=== PATIENT | male | born 1990 | race African-American/Black ===

== ENCOUNTER 2016-05-16 01:40 | Inpatient (IN) | payer MEDICAID, OTHER, SELFPAY ==
[2016-05-16] VITALS (20 sets, daily range): BP systolic 101–170; BP diastolic 66–110
[~2016-05-16] VITALS: Ht 172.7 cm; Wt 61.2 kg
[~2016-05-16 01:40] MED LIST: DIFLUCAN100 MG ORAL; HUMALOG INSULIN; HUMALOG SUBQ; HUMALOG100 UNIT/4 SQ; HUMALOG100 UNIT/4 SUBQ; LANTUS; LANTUS SOL100 UNIT/1 SUBQ; LANTUS100 UNIT/1 SQ; LANTUS100 UNIT/2 SUBQ; LANTUS5 UNITS *; LANTUS5 UNITS SUBQ; LEVEMIR FL100 UNIT/1 SUBQ; METOCLOPRAM5 MG/1 M1 ORAL; NOVOLIN R100 UNIT/1 SUBQ; NOVOLOG100 UNIT/1 SQ; NOVOLOG100 UNITS1 SUBQ; ONDANSETRON ODT4 MG ORAL; PROAIR HFA8.5 GM IH; Tubing IV Cassette IV ONE
[2016-05-16 02:04] LABS: ABG BASE EXCESS -14.5
[2016-05-16 02:05] LABS: ABG ALLEN TEST POSITIVE
[2016-05-16 02:11] LABS: BASOPHILS % (AUTO) 1.6 % (0.0-2.0); LYMPHOCYTES % (AUTO) 16.8 % (20.0-45.0); MEAN CORPUSCULAR HEMOGLOBIN 26.2 PG (27.0-31.0); MEAN CORPUSCULAR HGB CONC 32.3 G/DL (32.0-36.0); MEAN CORPUSCULAR VOLUME 81 FL (80-99); MONOCYTES % (AUTO) 5.3 % (1.0-10.0); NEUTROPHILS % (AUTO) 76.3 % (45.0-75.0); PLATELET COUNT 243 K/UL (150-450); RED BLOOD COUNT 6.16 M/UL (4.70-6.10); RED CELL DISTRIBUTION WIDTH 12.9 % (11.6-14.8); WHITE BLOOD COUNT 6.8 K/UL (4.8-10.8)
[2016-05-16 02:26] LABS: APPEARANCE,URINE CLEAR; KETONES,URINE 4+ (NEGATIVE); LEUKOCYTE ESTERASE ,URINE NEGATIVE (NEGATIVE); NITRITE,URINE NEGATIVE (NEGATIVE); PH,URINE 5 (4.5-8.0); UROBILINOGEN,URINE NORMAL MG/DL (0.0-1.0)
[2016-05-16 02:28] LABS: ANION GAP 33 (5-15); CALCIUM 9.1 mg/dL (8.6-10.2); CARBON DIOXIDE 12 mEQ/L (20-30); CHLORIDE 92 mEQ/L (98-107); CREATININE 1.1 mg/dL (0.7-1.2); GLOMERULAR FILTRATION RATE > 60 mL/min (>60); HEMOLYSIS 7; POTASSIUM 4.4 mEQ/L (3.4-4.9); SODIUM 137 mEQ/L (135-145)
[2016-05-16 02:29] LABS: PROTEIN,URINE NEGATIVE (NEGATIVE)
[2016-05-16 02:32] LABS: RBC,URINE 0-2 /HPF (0 - 0); SQUAMOUS EPITHELIAL CELL,UR FEW /LPF (NONE/OCC); WBC,URINE 0 /HPF (0 - 0)
[2016-05-16] MEDS ORDERED: Morphine Sulfate 4mg/ml Inj IVP ONE ×2 (03:30→05:00)
--- NOTE | 2016-05-16 03:39 | Emergency Room Report ---
History of Present Illness General Chief Complaint: Nausea, Vomiting, and Diarrhea Source: Patient Present Illness HPI This is a 25-year-old male with a history of insulin-dependent diabetes. He is well-known to me. He's been here several times in the past for DKA. Hasn't had admission for several months. He presents with chief complaint of abdominal pain with vomiting. Unable to keep anything down since that this. Said that he is compliant with his insulin. He does not check his blood sugar. Denies any other complaint. Pain is 8/10. No diarrhea. Allergies: Coded Allergies: No Known Allergies (Verified , 09/16/08) Patient History Past Medical History: see triage record, old chart reviewed, DM Past Surgical History: none Pertinent Family History: none Social History: Denies: smoking Immunizations: other Reviewed Nursing Documentation: PMH: Agreed, PSxH: Agreed Nursing Documentation-PMH Hx Cardiac Problems: No Hx Hypertension: No Hx Pacemaker: No Hx Asthma: No Hx COPD: No Hx Diabetes: Yes Hx Cancer: No Hx Gastrointestinal Problems: Yes Hx Dialysis: No Hx Neurological Problems: No Hx Cerebrovascular Accident: No Hx Seizures: No Review of Systems Eye: Denies: blurred vision, eye pain ENT: Denies: ear pain, nose congestion, throat swelling Respiratory: Denies: cough, shortness of breath Cardiovascular: Denies: chest pain, palpitations Gastrointestinal: Reports: abdominal pain, nausea, vomiting, Denies: diarrhea Musculoskeletal: Denies: back pain, joint pain Skin: Denies: rash Neurological: Denies: headache, numbness Endocrine: Denies: increased thirst, increased urine Hematologic/Lymphatic: Denies: easy bruising All Other Systems: negative except mentioned in HPI Physical Exam Vital Signs Date Time Temp Pulse Resp B/P Pulse Ox O2 Delivery O2 Flow Rate FiO2 05/16/16 01:39 98.4 80 18 116/72 97 Room Air vitals unremarkable Sp02 EP Interpretation: reviewed, normal General Appearance: well appearing, alert, mild distress Head: normocephalic, atraumatic Eyes: bilateral eye EOMI, bilateral eye PERRL ENT: hearing grossly normal, normal pharynx Neck: full range of motion, supple, no meningismus Respiratory: chest non-tender, lungs clear, normal breath sounds Cardiovascular #1: regular rate, rhythm, no murmur, tachycardia Gastrointestinal: normal bowel sounds, non tender, no mass, no organomegaly, no bruit, non-distended Musculoskeletal: back normal, gait/station normal, normal range of motion Neurologic: alert, oriented x3 Psychiatric: mood/affect normal Skin: warm/dry Procedures Critical Care Time Critical Care Time Critical care is mandated in this patient who presented with mild DKA. Patient require my urgent intervention to attenuate the risks of metabolic collapse which may lead to cardiovascular collapse and . Critical care time is 35 minutes excluding any reportable procedure. Critical care time included evaluation, multiple reevaluation, looking at old charts, interpreting laboratory and diagnostic data, discussing case with patient and family and consultants, and charting. Medical Decision Making Diagnostic Impression: Primary Impression: Ketoacidosis in type I diabetes mellitus Additional Impressions: Abdominal pain Vomiting Dehydration ER Course Patient presents with mild DKA. Slowly closing. We'll continue with insulin drip and dextrose solution. Will admit to the ICU. I contacted Dr. Meehan for admission. Lab Results Impression labs with DKA Rhythm Strip Diag. Results EP Interpretation: yes Rate: 110 Rhythm: NSR, no PVC's, no ectopy Last Vital Signs Date Time Temp Pulse Resp B/P Pulse Ox O2 Delivery O2 Flow Rate FiO2 05/16/16 03:35 118 17 149/89 100 Room Air 05/16/16 01:39 98.4 Status: improved Disposition: ADMITTED INPATIENT Condition: Critical Referrals: [facility],REFERRING (PCP) PRETTY GREWAL M.D. May 16, 2016 03:39
[2016-05-16 05:54] LABS: ANION GAP 25 (5-15); CALCIUM 7.9 mg/dL (8.6-10.2); CARBON DIOXIDE 14 mEQ/L (20-30); CHLORIDE 102 mEQ/L (98-107); CREATININE 0.9 mg/dL (0.7-1.2); GLOMERULAR FILTRATION RATE > 60 mL/min (>60); HEMOLYSIS 120; POTASSIUM 4.9 mEQ/L (3.4-4.9); SODIUM 141 mEQ/L (135-145)
[2016-05-16] MEDS: D5 1/2NS w/KCl 40meq 1000ml 1,000 ML IV SCH ×4 (07:21→21:15)
[2016-05-16] MEDS ORDERED: Nitroglycerin Subl 0.4mg tab (Bottle Of 25) SL PRN (08:11)
[2016-05-16] MEDS ORDERED: DuoNeb 0.5-3(2.5)mg/3ml neb HHN PRN (08:11)
[2016-05-16] MEDS ORDERED: Miralax 17gm pkt ORAL PRN (08:15)
[2016-05-16] MEDS: Morphine Sulfate 4mg/ml Inj IVP PRN ×3 (10:27→19:06)
[2016-05-16] MEDS: Pantoprazole Inj IVP SCH (10:28)
[2016-05-16] MEDS: Heparin 5000 units/ml inj SUBQ SCH ×2 (10:29→20:11)
[2016-05-16] MEDS: Insulin Rate Change 1 Each MISC PRN ×4 (14:13→21:36)
[2016-05-17] VITALS (24 sets, daily range): BP systolic 110–161; BP diastolic 58–100
[2016-05-17] MEDS: Insulin Rate Change 1 Each MISC PRN ×15 (00:02→21:05)
[2016-05-17] MEDS: Morphine Sulfate 4mg/ml Inj IVP PRN ×5 (00:07→18:31)
[2016-05-17] MEDS: D5 1/2NS w/KCl 40meq 1000ml 1,000 ML IV SCH ×2 (01:21→07:15)
[2016-05-17] MEDS: Pantoprazole Inj IVP SCH (08:35)
[2016-05-17] MEDS: Heparin 5000 units/ml inj SUBQ SCH ×2 (08:42→21:06)
[2016-05-17 09:44] LABS: ANION GAP 25 (5-15); CALCIUM 8.6 mg/dL (8.6-10.2); CARBON DIOXIDE 14 mEQ/L (20-30); CHLORIDE 102 mEQ/L (98-107); CREATININE 0.9 mg/dL (0.7-1.2); GLOMERULAR FILTRATION RATE > 60 mL/min (>60); HEMOLYSIS 7; POTASSIUM 4.1 mEQ/L (3.4-4.9); SODIUM 141 mEQ/L (135-145)
[2016-05-17 09:45] LABS: INR 1.1 (0.9-1.1)
[2016-05-17 09:54] LABS: BILIRUBIN,DIRECT 0.2 mg/dL (0.1-0.3); PHOSPHORUS 2.7 mg/dL (2.5-4.8); TOTAL PROTEIN 6.2 g/dL (6.6-8.7)
--- NOTE | 2016-05-17 10:31 | History and Physical ---
History of Present Illness General Date patient seen: May 16, 2016 Reason for Hospitalization: Nausea, Vomiting, and Diarrhea Present Illness HPI 25-year-old male with a history of insulin-dependent diabetes, recurrent DKA, non-compliance presented with chief complaint of abdominal pain and vomiting. He was diagnosed to have DKA and admitted to ICU Allergies: Coded Allergies: No Known Allergies (Verified , 09/16/08) Medication History Scheduled Insulin Aspart (Novolog Flexpen), 10 UNITS SUBQ TIAC Insulin Detemir (Levemir Flexpen), 25 UNITS SUBQ BEDTIME Insulin Glargine (Lantus), 20 UNITS SUBQ BEDTIME Insulin Lispro (Humalog), 15 UNITS SUBQ BID Insulin Regular, Human* (Novolin R*), 0 SUBQ .SLIDING SCALE, (Reported) Ondansetron Odt* (Zofran Odt*), 4 MG ORAL EVERY 8 HOURS Patient History Healthcare decision maker Resuscitation status Full Code Advanced Directive on File Past Medical/Surgical History Past Medical/Surgical History: (1) DM (diabetes mellitus) (2) medication non-compliance Review of Systems All Other Systems: negative except mentioned in HPI Physical Exam General Appearance: WD/WN Lines, tubes and drains: peripheral HEENT: normocephalic, atraumatic Neck: non-tender Respiratory/Chest: chest wall non-tender Breasts: no masses Cardiovascular/Chest: normal peripheral pulses Abdomen: normal bowel sounds Genitourinary/Rectal: normal genital exam Last 24 Hour Vital Signs Date Time Temp Pulse Resp B/P Pulse Ox O2 Delivery O2 Flow Rate FiO2 05/17/16 10:00 115 14 145/84 100 Room Air 05/17/16 09:05 98.8 05/17/16 09:00 122 13 156/94 100 Room Air 05/17/16 08:00 98.8 116 15 117/64 100 Room Air 05/17/16 08:00 119 05/17/16 07:00 106 11 122/94 100 Room Air 05/17/16 07:00 116 14 122/94 100 Room Air 05/17/16 06:00 110 13 120/69 100 Room Air 05/17/16 05:00 116 12 154/96 100 Room Air 05/17/16 04:00 127 13 161/94 100 Room Air 05/17/16 03:29 134 05/17/16 03:00 125 13 159/77 100 Room Air 05/17/16 02:00 98.1 102 10 124/74 100 Room Air 05/17/16 01:00 110 11 132/83 100 Room Air 05/17/16 00:00 117 12 133/83 100 Room Air 05/16/16 23:29 134 05/16/16 23:00 114 12 101/86 100 Room Air 05/16/16 22:00 116 12 157/87 100 Room Air 05/16/16 21:00 118 12 157/87 100 Room Air 05/16/16 20:00 112 05/16/16 20:00 98.0 112 12 144/82 100 Room Air 05/16/16 19:00 123 12 152/84 100 Room Air 05/16/16 18:00 122 16 170/110 100 Room Air 05/16/16 17:00 114 13 116/66 100 Room Air 05/16/16 16:00 98.2 124 13 153/92 100 Room Air 05/16/16 16:00 123 05/16/16 15:00 123 13 127/70 100 Room Air 05/16/16 14:00 134 22 137/90 100 Room Air 05/16/16 13:15 98.4 125 15 170/84 100 Room Air 05/16/16 13:04 88 20 162/98 Room Air 05/16/16 12:30 98.4 113 14 155/96 100 Room Air 05/16/16 11:30 98.0 121 18 150/96 100 Room Air 05/16/16 10:30 98.6 120 12 150/98 100 Room Air Intake and Output 05/16/16 05/17/16 19:00 07:00 Intake Total 770.16 ml 1833.46 ml Output Total 1750 ml 1030 ml Balance -979.84 ml 803.46 ml Intake IV Total 770.16 ml 1833.46 ml Output Urine Total 1550 ml 1000 ml Emesis 200 ml 30 ml Laboratory Tests Test 05/17/16 08:35 Prothrombin Time 11.0 SEC (9.30-11.50) Prothromb Time International Ratio 1.1 (0.9-1.1) Activated Partial Thromboplast Time 23 SEC (23-33) Sodium Level 141 mEQ/L (135-145) Potassium Level 4.1 mEQ/L (3.4-4.9) Chloride Level 102 mEQ/L (98-107) Carbon Dioxide Level 14 mEQ/L (20-30) L Anion Gap 25 (5-15) H Blood Urea Nitrogen 4 mg/dL (7-23) L Creatinine 0.9 mg/dL (0.7-1.2) Estimat Glomerular Filtration Rate > 60 mL/min (>60) Glucose Level 106 mg/dL (74-106) # Calcium Level 8.6 mg/dL (8.6-10.2) Phosphorus Level 2.7 mg/dL (2.5-4.8) Total Bilirubin 1.4 mg/dL (0.0-1.2) H Direct Bilirubin 0.2 mg/dL (0.1-0.3) Aspartate Amino Transf (AST/SGOT) 36 U/L (5-40) Alanine Aminotransferase (ALT/SGPT) 38 U/L (3-41) Alkaline Phosphatase 111 U/L (40-129) Total Protein 6.2 g/dL (6.6-8.7) L Albumin 4.0 g/dL (3.5-5.2) Height (Feet): 5 Height (Inches): 8.00 Weight (Pounds): 135 Medications Current Medications Medications (Trade) Dose Ordered Sig/Carlos Route PRN Reason Start Time Stop Time Status Last Admin Dose Admin Acetaminophen (Tylenol) 650 mg Q4H PRN ORAL Fever 05/16/16 08:11 06/15/16 08:10 05/17/16 03:23 Albuterol/ Ipratropium (DuoNeb 0.5-3(2.5)mg/3ml) 3 ml Q4H PRN HHN Shortness of Breath 05/16/16 08:11 05/21/16 08:10 Dextrose (Dextrose 50%) STAT PRN IV Hypoglycemia 05/16/16 08:15 06/15/16 08:14 Dextrose/ Electrolytes 1,000 ml @ 200 mls/hr Q5H IV 05/16/16 06:15 06/15/16 06:14 05/16/16 07:21 Heparin Sodium (Porcine) (Heparin 5000 units/ml) 5,000 units EVERY 12 HOURS SUBQ 05/16/16 10:00 06/15/16 09:59 05/17/16 08:42 Insulin Human Regular (NovoLIN R) 5 units PRN PRN IV BS 200-299 05/16/16 08:15 06/15/16 08:14 Insulin Human Regular (NovoLIN R) 10 units PRN PRN IV BS=>300 05/16/16 08:15 06/15/16 08:14 Insulin Human Regular/Sodium Chloride (NovoLIN R/ Sodium Chloride) 101 ml @ 0 mls/hr Q24H IV 05/16/16 10:03 06/15/16 08:14 05/17/16 08:43 Lorazepam (Ativan 2mg/ml 1ml) 2 mg Q2H PRN IV agitation 05/16/16 08:15 05/23/16 08:14 Miscellaneous Medication (Insulin Rate Change) 1 ea PRN PRN MISC To Patient Comfort 05/16/16 08:15 06/15/16 08:14 05/17/16 10:08 Morphine Sulfate (Morphine Sulfate) 4 mg Q4H PRN IVP Severe Pain (Pain Scale 7-10) 05/16/16 08:11 05/23/16 08:10 05/17/16 08:35 Nitroglycerin (Ntg) 0.4 mg Q5M PRN SL Prn Chest Pain 05/16/16 08:11 06/15/16 08:10 Ondansetron HCl (Zofran) 4 mg Q6H PRN IVP Nausea & Vomiting 05/16/16 08:15 06/15/16 08:14 05/17/16 04:12 Pantoprazole 40 mg 40 mg DAILY IVP 05/16/16 10:00 06/15/16 09:59 05/17/16 08:35 Polyethylene Glycol (Miralax) 17 gm DAILYPRN PRN ORAL Constipation 05/16/16 08:15 06/15/16 08:14 Sodium Chloride (Sodium Chloride 1000ml bag) 1,000 ml @ 150 mls/hr Q6H40M IV 05/16/16 10:00 06/15/16 09:59 05/17/16 04:19 Assessment/Plan Problem List: (1) Ketoacidosis in type I diabetes mellitus (2) Vomiting Assessment/Plan IV fluids insulin drip accucheck hourly dvt prophylaxis. VINEET BERMEO May 17, 2016 10:31
--- NOTE | 2016-05-17 10:40 | Pulmonolgy Critical Care Note ---
Critical Care - Asmt/Plan Problems: (1) Ketoacidosis in type I diabetes mellitus (2) Sinus tachycardia (3) medication non-compliance Respiratory: monitor respiratory rate Cardiac: continue to monitor HR/BP Renal: F/U I&O, other - change IV fluid to D5 1/2 Ns Infectious Disease: check cultures, continue antibiotics Gastrointestinal: continue feedings/current rate Endocrine: monitor blood sugar, continue sliding scale insulin Hematologic: monitor H/H, transfuse if hgb<8.5 Neurologic: PRN Ativan, PRN Morphine, keep patient comfortable Affect: PRN ativan Notes Reviewed: physical meteorologist, cardio Discussed with: nurses, consultants, disease case manager rncytology manager - Objective Last 24 Hour Vital Signs Date Time Temp Pulse Resp B/P Pulse Ox O2 Delivery O2 Flow Rate FiO2 05/17/16 10:00 115 14 145/84 100 Room Air 05/17/16 09:05 98.8 05/17/16 09:00 122 13 156/94 100 Room Air 05/17/16 08:00 98.8 116 15 117/64 100 Room Air 05/17/16 08:00 119 05/17/16 07:00 106 11 122/94 100 Room Air 05/17/16 07:00 116 14 122/94 100 Room Air 05/17/16 06:00 110 13 120/69 100 Room Air 05/17/16 05:00 116 12 154/96 100 Room Air 05/17/16 04:00 127 13 161/94 100 Room Air 05/17/16 03:29 134 05/17/16 03:00 125 13 159/77 100 Room Air 05/17/16 02:00 98.1 102 10 124/74 100 Room Air 05/17/16 01:00 110 11 132/83 100 Room Air 05/17/16 00:00 117 12 133/83 100 Room Air 05/16/16 23:29 134 05/16/16 23:00 114 12 101/86 100 Room Air 05/16/16 22:00 116 12 157/87 100 Room Air 05/16/16 21:00 118 12 157/87 100 Room Air 05/16/16 20:00 112 05/16/16 20:00 98.0 112 12 144/82 100 Room Air 05/16/16 19:00 123 12 152/84 100 Room Air 05/16/16 18:00 122 16 170/110 100 Room Air 05/16/16 17:00 114 13 116/66 100 Room Air 05/16/16 16:00 98.2 124 13 153/92 100 Room Air 05/16/16 16:00 123 05/16/16 15:00 123 13 127/70 100 Room Air 05/16/16 14:00 134 22 137/90 100 Room Air 05/16/16 13:15 98.4 125 15 170/84 100 Room Air 05/16/16 13:04 88 20 162/98 Room Air 05/16/16 12:30 98.4 113 14 155/96 100 Room Air 05/16/16 11:30 98.0 121 18 150/96 100 Room Air Status: awake Condition: critical HEENT: atraumatic, normocephalic Lungs: clear Heart: HR/BP stable Abdomen: soft, active bowel sounds Extremities: no C/C/E, edema Decubiti: stage Accucheck: 135 Critical Care - Subjective ROS Limited/Unobtainable: Yes ICU Day: 2 Condition: critical EKG Rhythm: Sinus Rhythm Fluids: ns 150 cc.hour Drips: insulin drip I&O: Intake and Output 05/16/16 05/17/16 19:00 07:00 Intake Total 770.16 ml 1833.46 ml Output Total 1750 ml 1030 ml Balance -979.84 ml 803.46 ml Intake IV Total 770.16 ml 1833.46 ml Output Urine Total 1550 ml 1000 ml Emesis 200 ml 30 ml CXR: [place] Labs: Laboratory Tests Test 05/17/16 08:35 Prothrombin Time 11.0 SEC (9.30-11.50) Prothromb Time International Ratio 1.1 (0.9-1.1) Activated Partial Thromboplast Time 23 SEC (23-33) Sodium Level 141 mEQ/L (135-145) Potassium Level 4.1 mEQ/L (3.4-4.9) Chloride Level 102 mEQ/L (98-107) Carbon Dioxide Level 14 mEQ/L (20-30) L Anion Gap 25 (5-15) H Blood Urea Nitrogen 4 mg/dL (7-23) L Creatinine 0.9 mg/dL (0.7-1.2) Estimat Glomerular Filtration Rate > 60 mL/min (>60) Glucose Level 106 mg/dL (74-106) # Calcium Level 8.6 mg/dL (8.6-10.2) Phosphorus Level 2.7 mg/dL (2.5-4.8) Total Bilirubin 1.4 mg/dL (0.0-1.2) H Direct Bilirubin 0.2 mg/dL (0.1-0.3) Aspartate Amino Transf (AST/SGOT) 36 U/L (5-40) Alanine Aminotransferase (ALT/SGPT) 38 U/L (3-41) Alkaline Phosphatase 111 U/L (40-129) Total Protein 6.2 g/dL (6.6-8.7) L Albumin 4.0 g/dL (3.5-5.2) VINEET BERMEO May 17, 2016 10:40
[2016-05-17] MEDS: D5 1/2NS 1,000 ML IV SCH ×2 (11:12→18:30)
--- NOTE | 2016-05-17 23:38 | Consultation ---
DATE OF CONSULTATION: 05/17/2016 ENDOCRINOLOGY CONSULTATION CONSULTING PHYSICIAN: Gunnar Parks M.D. REFERRING PHYSICIAN: Ashleigh Meehan M.D. REASON FOR CONSULTATION: Diabetic ketoacidosis. HISTORY OF PRESENT ILLNESS: This is a 25-year-old male with a history of type 1 diabetes, recurrent UTI, and noncompliance with medication, presented with abdominal pain and vomiting, diagnosed of DKA, and admitted to the ICU, to be treated with insulin drip. MEDICATIONS: Reviewed. PAST MEDICAL HISTORY: 1. Type 1 diabetes. 2. Noncompliance. 3. Diabetic ketoacidosis. FAMILY HISTORY: Noncontributory. SOCIAL HISTORY: Denies any smoking, alcohol, or drug use. REVIEW OF SYSTEMS: As per history of present illness. LABORATORY DATA: WBC 6.8, hemoglobin 16, hematocrit 50, and platelets of 243,000. Sodium 141, potassium 4.1, chloride 103, bicarbonate 14, anion gap 25, BUN 4, and creatinine 0.9. DIAGNOSES: 1. Diabetic ketoacidosis due to noncompliance. 2. Type 1 diabetes. PLAN: 1. Continue IV fluids. 2. Continue IV insulin. 3. Continue electrolytes. 4. Insulin therapy will be initiated once the patient's anion gap is closed. Gunnar Parks M.D. DR: CARMENZA/TANIYA JOB#: [id number] CC:
[2016-05-18] VITALS (24 sets, daily range): BP systolic 115–160; BP diastolic 56–105
[2016-05-18] MEDS: D5 1/2NS 1,000 ML IV SCH ×3 (03:05→17:26)
[2016-05-18] MEDS: Insulin Rate Change 1 Each MISC PRN ×14 (03:06→23:54)
--- NOTE | 2016-05-18 07:03 | General Progress Note ---
Assessment/Plan Problem List: (1) Ketoacidosis in type I diabetes mellitus (2) Abdominal pain (3) Dehydration Assessment/Plan am labs are pending AG still open according to latest chemistry continue IV insulin until AG closes Subjective Allergies: Coded Allergies: No Known Allergies (Verified , 09/16/08) All Systems: reviewed and negative except above Subjective still in icu complaining of abdominal pain Objective Last 24 Hour Vital Signs Date Time Temp Pulse Resp B/P Pulse Ox O2 Delivery O2 Flow Rate FiO2 05/18/16 06:00 120 10 155/100 100 Room Air 05/18/16 05:00 92 13 147/81 100 Room Air 05/18/16 04:00 98.4 111 12 149/83 100 Room Air 05/18/16 04:00 111 05/18/16 03:00 114 13 153/96 100 Room Air 05/18/16 02:00 99 8 153/89 100 Room Air 05/18/16 01:00 111 12 160/97 100 Room Air 05/18/16 00:04 111 05/18/16 00:00 98.3 117 8 151/93 100 Room Air 05/17/16 23:00 110 10 141/97 100 Room Air 05/17/16 22:00 120 21 150/94 100 Room Air 05/17/16 21:00 111 10 132/78 100 Room Air 05/17/16 20:00 98.6 118 13 160/100 100 Room Air 05/17/16 20:00 115 05/17/16 19:10 98.5 05/17/16 19:00 119 12 133/81 100 Room Air 05/17/16 18:00 127 16 156/98 100 Room Air 05/17/16 17:00 122 15 152/93 100 Room Air 05/17/16 16:00 126 05/17/16 16:00 98.5 120 11 151/99 100 Room Air 05/17/16 15:00 121 15 131/77 100 Room Air 05/17/16 14:00 149 17 150/77 100 Room Air 05/17/16 13:00 100 24 121/76 100 Room Air 05/17/16 12:00 98.7 104 11 138/76 100 Room Air 05/17/16 12:00 122 05/17/16 11:00 114 15 110/58 100 Room Air 05/17/16 10:00 115 14 145/84 100 Room Air 05/17/16 09:00 122 13 156/94 100 Room Air 05/17/16 08:00 98.8 116 15 117/64 100 Room Air 05/17/16 08:00 119 Intake and Output 05/17/16 05/18/16 19:00 07:00 Intake Total 1184.60 ml 1018.5 ml Output Total 1000 ml 900 ml Balance 184.60 ml 118.5 ml Intake IV Total 1184.60 ml 1018.5 ml Output Urine Total 1000 ml 900 ml Laboratory Tests 05/17/16 08:35: Prothrombin Time 11.0, Prothromb Time International Ratio 1.1, Activated Partial Thromboplast Time 23, Sodium Level 141, Potassium Level 4.1, Chloride Level 102, Carbon Dioxide Level 14L, Anion Gap 25H, Blood Urea Nitrogen 4L, Creatinine 0.9, Estimat Glomerular Filtration Rate > 60, Glucose Level 106#, Calcium Level 8.6, Phosphorus Level 2.7, Total Bilirubin 1.4H, Direct Bilirubin 0.2, Aspartate Amino Transf (AST/SGOT) 36, Alanine Aminotransferase (ALT/SGPT) 38, Alkaline Phosphatase 111, Total Protein 6.2L, Albumin 4.0 Height (Feet): 5 Height (Inches): 8.00 Weight (Pounds): 135 General Appearance: no apparent distress EENT: PERRL/EOMI Neck: normal alignment Cardiovascular: normal peripheral pulses Respiratory/Chest: lungs clear Abdomen: normal bowel sounds Objective Current Medications Medications (Trade) Dose Ordered Sig/Carlos Route PRN Reason Start Time Stop Time Status Last Admin Dose Admin Acetaminophen (Tylenol) 650 mg Q4H PRN ORAL Fever 05/16/16 08:11 06/15/16 08:10 05/17/16 03:23 Albuterol/ Ipratropium (DuoNeb 0.5-3(2.5)mg/3ml) 3 ml Q4H PRN HHN Shortness of Breath 05/16/16 08:11 05/21/16 08:10 Dextrose (Dextrose 50%) PRN PRN IV HYPOGLYCEMIA 05/17/16 11:30 06/16/16 11:29 Dextrose/Sodium Chloride (D5 0.45% NS) 1,000 ml @ 125 mls/hr Q8H IV 05/17/16 11:00 06/16/16 10:59 05/18/16 03:05 Heparin Sodium (Porcine) (Heparin 5000 units/ml) 5,000 units EVERY 12 HOURS SUBQ 05/16/16 10:00 06/15/16 09:59 05/17/16 21:06 Insulin Human Regular (NovoLIN R) 5 units PRN PRN IV BS 200-299 05/17/16 11:30 06/16/16 11:29 05/18/16 05:24 Insulin Human Regular (NovoLIN R) 10 units PRN PRN IV BS=>300 05/17/16 11:30 06/16/16 11:29 Insulin Human Regular/Sodium Chloride (NovoLIN R/ Sodium Chloride) 101 ml @ 0 mls/hr Q24H IV 05/17/16 14:00 06/16/16 13:59 05/17/16 14:08 Lorazepam (Ativan 2mg/ml 1ml) 2 mg Q2H PRN IV agitation 05/16/16 08:15 05/23/16 08:14 Miscellaneous Medication 1 ea 1 ea PRN PRN MISC Taper 05/17/16 11:30 06/16/16 11:29 05/18/16 06:08 Morphine Sulfate (Morphine Sulfate) 4 mg Q4H PRN IVP Severe Pain (Pain Scale 7-10) 05/16/16 08:11 05/23/16 08:10 05/17/16 18:31 Nitroglycerin (Ntg) 0.4 mg Q5M PRN SL Prn Chest Pain 05/16/16 08:11 06/15/16 08:10 Ondansetron HCl (Zofran) 4 mg Q6H PRN IVP Nausea & Vomiting 05/16/16 08:15 06/15/16 08:14 05/18/16 01:04 Pantoprazole 40 mg 40 mg DAILY IVP 05/16/16 10:00 06/15/16 09:59 05/17/16 08:35 Polyethylene Glycol (Miralax) 17 gm DAILYPRN PRN ORAL Constipation 05/16/16 08:15 06/15/16 08:14 Item Value Date Time Bedside Blood Glucose 141 mg/dl H 05/18/16 0608 IRENE MCHUGH 21, 2017 07:03
[2016-05-18 07:36] LABS: BASOPHILS % (AUTO) 1.1 % (0.0-2.0); LYMPHOCYTES % (AUTO) 14.8 % (20.0-45.0); MEAN CORPUSCULAR HEMOGLOBIN 25.9 PG (27.0-31.0); MEAN CORPUSCULAR HGB CONC 32.2 G/DL (32.0-36.0); MEAN CORPUSCULAR VOLUME 80 FL (80-99); MEAN PLATELET VOLUME 8.3 FL (6.5-10.1); MONOCYTES % (AUTO) 8.8 % (1.0-10.0); NEUTROPHILS % (AUTO) 75.3 % (45.0-75.0); PLATELET COUNT 223 K/UL (150-450); RED BLOOD COUNT 6.11 M/UL (4.70-6.10); RED CELL DISTRIBUTION WIDTH 12.7 % (11.6-14.8); WHITE BLOOD COUNT 7.7 K/UL (4.8-10.8)
[2016-05-18 07:47] LABS: ALANINE AMINOTRANSFERASE 34 U/L (3-41); ALBUMIN/GLOBULIN RATIO 1.3 (1.0-2.7); ANION GAP 18 (5-15); ASPARTATE AMINO TRANSFERASE 23 U/L (5-40); CALCIUM 8.8 mg/dL (8.6-10.2); CARBON DIOXIDE 21 mEQ/L (20-30); CHLORIDE 97 mEQ/L (98-107); CREATININE 0.9 mg/dL (0.7-1.2); GLOMERULAR FILTRATION RATE > 60 mL/min (>60); HEMOLYSIS 5; MAGNESIUM 1.5 mg/dL (1.7-2.5); PHOSPHORUS 1.6 mg/dL (2.5-4.8); POTASSIUM 3.2 mEQ/L (3.4-4.9); SODIUM 136 mEQ/L (135-145); TOTAL PROTEIN 6.5 g/dL (6.6-8.7)
[2016-05-18 08:04] LABS: INR 1.2 (0.9-1.1); PROTHROMBIN TIME 12.6 SEC (9.30-11.50)
[2016-05-18 08:15] LABS: BILIRUBIN,DIRECT 0.2 mg/dL (0.1-0.3)
[2016-05-18] MEDS: Heparin 5000 units/ml inj SUBQ SCH ×2 (09:00→21:00)
[2016-05-18] MEDS: Pantoprazole Inj IVP SCH (09:25)
[2016-05-18] MEDS: LORazepam Inj 2mg/ml 1ml IV PRN (09:25)
--- NOTE | 2016-05-18 10:51 | Pulmonolgy Critical Care Note ---
Critical Care - Asmt/Plan Problems: (1) Ketoacidosis in type I diabetes mellitus (2) Sinus tachycardia (3) medication non-compliance Respiratory: monitor respiratory rate, CXR Cardiac: other - still tachycardic Renal: F/U I&O, keep IV fluid, check electrolytes, other - phos, K supplement Infectious Disease: check cultures Gastrointestinal: continue feedings/current rate Endocrine: monitor blood sugar Hematologic: monitor H/H Neurologic: PRN Ativan Affect: PRN ativan Prophylaxis: Protonix Notes Reviewed: other - endocrinology Discussed with: nurses, consultants Critical Care - Objective Last 24 Hour Vital Signs Date Time Temp Pulse Resp B/P Pulse Ox O2 Delivery O2 Flow Rate FiO2 05/18/16 07:01 95 14 128/91 100 Room Air 05/18/16 06:00 120 10 155/100 100 Room Air 05/18/16 05:00 92 13 147/81 100 Room Air 05/18/16 04:00 98.4 111 12 149/83 100 Room Air 05/18/16 04:00 111 05/18/16 03:00 114 13 153/96 100 Room Air 05/18/16 02:00 99 8 153/89 100 Room Air 05/18/16 01:00 111 12 160/97 100 Room Air 05/18/16 00:04 111 05/18/16 00:00 98.3 117 8 151/93 100 Room Air 05/17/16 23:00 110 10 141/97 100 Room Air 05/17/16 22:00 120 21 150/94 100 Room Air 05/17/16 21:00 111 10 132/78 100 Room Air 05/17/16 20:00 98.6 118 13 160/100 100 Room Air 05/17/16 20:00 115 05/17/16 19:10 98.5 05/17/16 19:00 119 12 133/81 100 Room Air 05/17/16 18:00 127 16 156/98 100 Room Air 05/17/16 17:00 122 15 152/93 100 Room Air 05/17/16 16:00 126 05/17/16 16:00 98.5 120 11 151/99 100 Room Air 05/17/16 15:00 121 15 131/77 100 Room Air 05/17/16 14:00 149 17 150/77 100 Room Air 05/17/16 13:00 100 24 121/76 100 Room Air 05/17/16 12:00 98.7 104 11 138/76 100 Room Air 05/17/16 12:00 122 05/17/16 11:00 114 15 110/58 100 Room Air Status: awake Condition: critical HEENT: atraumatic Neck: full ROM Lungs: chest wall tender Heart: HR/BP stable, HR/BP unstable Extremities: no C/C/E Decubiti: location Accucheck: 201 Critical Care - Subjective ROS Limited/Unobtainable: No ICU Day: 3 Interval Events: still c/o abdominal pain and nausea Condition: critical EKG Rhythm: Sinus Rhythm Fluids: d5 1/2 NS I&O: Intake and Output 05/17/16 05/18/16 19:00 07:00 Intake Total 1184.60 ml 1401.0 ml Output Total 1000 ml 900 ml Balance 184.60 ml 501.0 ml Intake IV Total 1184.60 ml 1401.0 ml Output Urine Total 1000 ml 900 ml VINEET BERMEO May 18, 2016 10:51
[2016-05-18] MEDS ORDERED: Potassium Phosphate 30 MM in Sodium Chloride 550 ML IV ONE (13:00)
[2016-05-18] MEDS ORDERED: Lidocaine 1% Plain 30 ml INJ ONE (16:00)
[2016-05-18] MEDS ORDERED: Heparin 2000 units/Ns 1000ml IV ONE (16:00)
[2016-05-19] VITALS (24 sets, daily range): BP systolic 97–152; BP diastolic 49–102
[2016-05-19] MEDS: Insulin Rate Change 1 Each MISC PRN ×16 (01:15→23:58)
[2016-05-19] MEDS: D5 1/2NS 1,000 ML IV SCH ×3 (01:40→19:00)
[2016-05-19] MEDS: Morphine Sulfate 4mg/ml Inj IVP PRN ×3 (05:31→23:03)
[2016-05-19 06:53] LABS: BASOPHILS % (AUTO) 1.1 % (0.0-2.0); LYMPHOCYTES % (AUTO) 18.5 % (20.0-45.0); MEAN CORPUSCULAR HEMOGLOBIN 26.2 PG (27.0-31.0); MEAN CORPUSCULAR HGB CONC 32.7 G/DL (32.0-36.0); MEAN CORPUSCULAR VOLUME 80 FL (80-99); MEAN PLATELET VOLUME 8.3 FL (6.5-10.1); MONOCYTES % (AUTO) 11.2 % (1.0-10.0); NEUTROPHILS % (AUTO) 69.1 % (45.0-75.0); PLATELET COUNT 167 K/UL (150-450); RED BLOOD COUNT 6.01 M/UL (4.70-6.10); RED CELL DISTRIBUTION WIDTH 12.3 % (11.6-14.8); WHITE BLOOD COUNT 6.4 K/UL (4.8-10.8)
[2016-05-19 07:21] LABS: ALANINE AMINOTRANSFERASE 28 U/L (3-41); ALBUMIN/GLOBULIN RATIO 1.4 (1.0-2.7); ANION GAP 22 (5-15); ASPARTATE AMINO TRANSFERASE 17 U/L (5-40); CALCIUM 8.7 mg/dL (8.6-10.2); CARBON DIOXIDE 22 mEQ/L (20-30); CHLORIDE 94 mEQ/L (98-107); CREATININE 0.9 mg/dL (0.7-1.2); GLOMERULAR FILTRATION RATE > 60 mL/min (>60); MAGNESIUM 1.4 mg/dL (1.7-2.5); PHOSPHORUS 2.2 mg/dL (2.5-4.8); POTASSIUM 2.8 mEQ/L (3.4-4.9); SODIUM 138 mEQ/L (135-145)
--- NOTE | 2016-05-19 07:45 | General Progress Note ---
Assessment/Plan Problem List: (1) Ketoacidosis in type I diabetes mellitus (2) Abdominal pain (3) Dehydration Assessment/Plan AG remained open despite improved bicarb level check lactic acid level continue IV insulin for now Subjective Allergies: Coded Allergies: No Known Allergies (Verified , 09/16/08) All Systems: reviewed and negative except above Subjective still in icu events noted Objective Last 24 Hour Vital Signs Date Time Temp Pulse Resp B/P Pulse Ox O2 Delivery O2 Flow Rate FiO2 05/19/16 07:00 116 15 140/87 100 Room Air 05/19/16 06:00 123 14 148/67 100 Room Air 05/19/16 05:00 122 14 149/96 100 Room Air 05/19/16 04:00 125 05/19/16 04:00 97.1 122 15 144/85 100 Room Air 05/19/16 03:00 125 16 130/80 100 Room Air 05/19/16 02:00 128 15 152/102 100 Room Air 05/19/16 01:00 132 17 147/92 100 Room Air 05/19/16 00:00 120 05/19/16 00:00 97.1 130 18 147/99 100 Room Air 05/18/16 23:00 120 17 147/96 100 Room Air 05/18/16 22:00 123 16 151/101 100 Room Air 05/18/16 21:00 126 16 150/92 100 Room Air 05/18/16 20:00 115 05/18/16 20:00 97.5 115 14 159/105 100 Room Air 05/18/16 19:00 112 13 158/104 100 Room Air 05/18/16 18:00 117 16 139/92 100 Room Air 05/18/16 17:00 122 15 150/105 100 Room Air 05/18/16 16:00 97.2 119 14 142/88 100 Room Air 05/18/16 16:00 112 05/18/16 15:00 120 20 135/67 100 Room Air 05/18/16 14:00 119 20 149/100 99 Room Air 05/18/16 13:00 101 18 115/56 99 Room Air 05/18/16 12:00 98.6 108 11 126/77 100 Room Air 05/18/16 12:00 107 05/18/16 11:00 116 11 129/63 100 Room Air 05/18/16 10:00 120 9 131/81 100 Room Air 05/18/16 09:00 115 14 125/67 100 Room Air 05/18/16 08:00 98.9 99 14 131/67 100 Room Air 05/18/16 08:00 101 Intake and Output 05/18/16 05/19/16 19:00 07:00 Intake Total 1415.77 ml 1540.54 ml Output Total 970 ml 950 ml Balance 445.77 ml 590.54 ml Intake IV Total 1415.77 ml 1540.54 ml Output Urine Total 970 ml 950 ml Laboratory Tests 05/19/16 04:00: White Blood Count 6.4, Red Blood Count 6.01, Hemoglobin 15.7, Hematocrit 48.1, Mean Corpuscular Volume 80, Mean Corpuscular Hemoglobin 26.2L, Mean Corpuscular Hemoglobin Concent 32.7, Red Cell Distribution Width 12.3, Platelet Count 167, Mean Platelet Volume 8.3, Neutrophils (%) (Auto) 69.1, Lymphocytes (%) (Auto) 18.5L, Monocytes (%) (Auto) 11.2H, Eosinophils (%) (Auto) 0.0, Basophils (%) ( Auto) 1.1, Sodium Level 138, Potassium Level 2.8L, Chloride Level 94L, Carbon Dioxide Level 22, Anion Gap 22H, Blood Urea Nitrogen 3L, Creatinine 0.9, Estimat Glomerular Filtration Rate > 60, Glucose Level 233H, Calcium Level 8.7, Phosphorus Level 2.2L, Magnesium Level 1.4L, Total Bilirubin 1.7H, Direct Bilirubin [Pending], Aspartate Amino Transf (AST/SGOT) 17, Alanine Aminotransferase (ALT/SGPT) 28, Alkaline Phosphatase 114, Total Protein 6.0L, Albumin 3.5, Globulin 2.5, Albumin/Globulin Ratio 1.4 Height (Feet): 5 Height (Inches): 8.00 Weight (Pounds): 135 General Appearance: no apparent distress Neck: normal alignment Cardiovascular: normal rate Respiratory/Chest: lungs clear Abdomen: normal bowel sounds Objective Current Medications Medications (Trade) Dose Ordered Sig/Carlos Route PRN Reason Start Time Stop Time Status Last Admin Dose Admin Acetaminophen (Tylenol) 650 mg Q4H PRN ORAL Fever 05/16/16 08:11 06/15/16 08:10 05/17/16 03:23 Albuterol/ Ipratropium (DuoNeb 0.5-3(2.5)mg/3ml) 3 ml Q4H PRN HHN Shortness of Breath 05/16/16 08:11 05/21/16 08:10 Dextrose (Dextrose 50%) PRN PRN IV HYPOGLYCEMIA 05/17/16 11:30 06/16/16 11:29 Dextrose/Sodium Chloride (D5 0.45% NS) 1,000 ml @ 125 mls/hr Q8H IV 05/17/16 11:00 06/16/16 10:59 05/19/16 01:40 Heparin Sodium (Porcine) (Heparin 5000 units/ml) 5,000 units EVERY 12 HOURS SUBQ 05/16/16 10:00 06/15/16 09:59 05/17/16 21:06 Insulin Human Regular (NovoLIN R) 5 units PRN PRN IV BS 200-299 05/17/16 11:30 06/16/16 11:29 05/19/16 05:27 Insulin Human Regular (NovoLIN R) 10 units PRN PRN IV BS=>300 05/17/16 11:30 06/16/16 11:29 Insulin Human Regular/Sodium Chloride (NovoLIN R/ Sodium Chloride) 101 ml @ 0 mls/hr Q24H IV 05/17/16 14:00 06/16/16 13:59 05/18/16 13:28 Lorazepam (Ativan 2mg/ml 1ml) 2 mg Q2H PRN IV agitation 05/16/16 08:15 05/23/16 08:14 05/18/16 09:25 Miscellaneous Medication 1 ea 1 ea PRN PRN MISC Taper 05/17/16 11:30 06/16/16 11:29 05/19/16 06:19 Morphine Sulfate (Morphine Sulfate) 4 mg Q4H PRN IVP Severe Pain (Pain Scale 7-10) 05/16/16 08:11 05/23/16 08:10 05/19/16 05:31 Nitroglycerin (Ntg) 0.4 mg Q5M PRN SL Prn Chest Pain 05/16/16 08:11 06/15/16 08:10 Ondansetron HCl (Zofran) 4 mg Q6H PRN IVP Nausea & Vomiting 05/16/16 08:15 06/15/16 08:14 05/18/16 09:25 Pantoprazole 40 mg 40 mg DAILY IVP 05/16/16 10:00 06/15/16 09:59 05/18/16 09:25 Polyethylene Glycol (Miralax) 17 gm DAILYPRN PRN ORAL Constipation 05/16/16 08:15 06/15/16 08:14 Item Value Date Time Bedside Blood Glucose 165 mg/dl H 05/19/16 0700 Bedside Blood Glucose 172 mg/dl H 05/19/16 0619 Bedside Blood Glucose 229 mg/dl H 05/19/16 0209 Bedside Blood Glucose 124 mg/dl H 05/18/16 2200 Bedside Blood Glucose 162 mg/dl H 05/18/16 1810 Bedside Blood Glucose 72 mg/dl 05/18/16 1400 IRENE MCHUGH 22, 2017 07:45
[2016-05-19] MEDS: LORazepam Inj 2mg/ml 1ml IV PRN (08:10)
[2016-05-19] MEDS: Pantoprazole Inj IVP SCH (08:10)
[2016-05-19 08:14] LABS: BILIRUBIN,DIRECT 0.2 mg/dL (0.1-0.3); HEMOLYSIS 7
[2016-05-19] MEDS: Heparin 5000 units/ml inj SUBQ SCH ×2 (08:20→21:00)
--- NOTE | 2016-05-19 10:48 | Pulmonolgy Critical Care Note ---
Critical Care - Asmt/Plan Problems: (1) Ketoacidosis in type I diabetes mellitus (2) Sinus tachycardia (3) medication non-compliance Respiratory: monitor respiratory rate, adjust FIO2 Cardiac: continue to monitor HR/BP Renal: F/U I&O, keep IV fluid, check electrolytes - phos, mg, K supplement, repeat labs tonight Gastrointestinal: start feedings - clear liquid Endocrine: monitor blood sugar, continue sliding scale insulin - and sinsulin drip Hematologic: monitor H/H Neurologic: PRN Ativan, PRN Morphine Prophylaxis: Protonix, Heparin Notes Reviewed: computer networking instructor Discussed with: nurses, consultants, disease case manager rnmanager fiber - Objective Last 24 Hour Vital Signs Date Time Temp Pulse Resp B/P Pulse Ox O2 Delivery O2 Flow Rate FiO2 05/19/16 10:00 106 13 129/87 100 Room Air 05/19/16 09:00 108 15 120/71 100 Room Air 05/19/16 08:00 108 05/19/16 08:00 98.1 112 13 131/56 100 Room Air 05/19/16 07:00 116 15 140/87 100 Room Air 05/19/16 06:00 123 14 148/67 100 Room Air 05/19/16 05:00 122 14 149/96 100 Room Air 05/19/16 04:00 125 05/19/16 04:00 97.1 122 15 144/85 100 Room Air 05/19/16 03:00 125 16 130/80 100 Room Air 05/19/16 02:00 128 15 152/102 100 Room Air 05/19/16 01:00 132 17 147/92 100 Room Air 05/19/16 00:00 120 05/19/16 00:00 97.1 130 18 147/99 100 Room Air 05/18/16 23:00 120 17 147/96 100 Room Air 05/18/16 22:00 123 16 151/101 100 Room Air 05/18/16 21:00 126 16 150/92 100 Room Air 05/18/16 20:00 115 05/18/16 20:00 97.5 115 14 159/105 100 Room Air 05/18/16 19:00 112 13 158/104 100 Room Air 05/18/16 18:00 117 16 139/92 100 Room Air 05/18/16 17:00 122 15 150/105 100 Room Air 05/18/16 16:00 97.2 119 14 142/88 100 Room Air 05/18/16 16:00 112 05/18/16 15:00 120 20 135/67 100 Room Air 05/18/16 14:00 119 20 149/100 99 Room Air 05/18/16 13:00 101 18 115/56 99 Room Air 05/18/16 12:00 98.6 108 11 126/77 100 Room Air 05/18/16 12:00 107 05/18/16 11:00 116 11 129/63 100 Room Air Status: awake Condition: critical HEENT: atraumatic Neck: full ROM Lungs: chest wall tender Heart: HR/BP stable, regular Abdomen: soft, feeding tube Extremities: edema Decubiti: location Accucheck: 242 Critical Care - Subjective ROS Limited/Unobtainable: No ICU Day: feeling slightly better Condition: critical, improving Fluids: d5 1/2 125 cc/hour Drips: insulin I&O: Intake and Output 05/18/16 05/19/16 19:00 07:00 Intake Total 1415.77 ml 1540.54 ml Output Total 970 ml 950 ml Balance 445.77 ml 590.54 ml Intake IV Total 1415.77 ml 1540.54 ml Output Urine Total 970 ml 950 ml Labs: Laboratory Tests Test 05/19/16 04:00 05/19/16 08:15 White Blood Count 6.4 K/UL (4.8-10.8) Red Blood Count 6.01 M/UL (4.70-6.10) Hemoglobin 15.7 G/DL (14.2-18.0) Hematocrit 48.1 % (42.0-52.0) Mean Corpuscular Volume 80 FL (80-99) Mean Corpuscular Hemoglobin 26.2 PG (27.0-31.0) L Mean Corpuscular Hemoglobin Concent 32.7 G/DL (32.0-36.0) Red Cell Distribution Width 12.3 % (11.6-14.8) Platelet Count 167 K/UL (150-450) Mean Platelet Volume 8.3 FL (6.5-10.1) Neutrophils (%) (Auto) 69.1 % (45.0-75.0) Lymphocytes (%) (Auto) 18.5 % (20.0-45.0) L Monocytes (%) (Auto) 11.2 % (1.0-10.0) H Eosinophils (%) (Auto) 0.0 % (0.0-3.0) Basophils (%) (Auto) 1.1 % (0.0-2.0) Sodium Level 138 mEQ/L (135-145) Potassium Level 2.8 mEQ/L (3.4-4.9) L Chloride Level 94 mEQ/L (98-107) L Carbon Dioxide Level 22 mEQ/L (20-30) Anion Gap 22 (5-15) H Blood Urea Nitrogen 3 mg/dL (7-23) L Creatinine 0.9 mg/dL (0.7-1.2) Estimat Glomerular Filtration Rate > 60 mL/min (>60) Glucose Level 233 mg/dL (74-106) H Calcium Level 8.7 mg/dL (8.6-10.2) Phosphorus Level 2.2 mg/dL (2.5-4.8) L Magnesium Level 1.4 mg/dL (1.7-2.5) L Total Bilirubin 1.7 mg/dL (0.0-1.2) H Direct Bilirubin 0.2 mg/dL (0.1-0.3) Aspartate Amino Transf (AST/SGOT) 17 U/L (5-40) Alanine Aminotransferase (ALT/SGPT) 28 U/L (3-41) Alkaline Phosphatase 114 U/L (40-129) Total Protein 6.0 g/dL (6.6-8.7) L Albumin 3.5 g/dL (3.5-5.2) Globulin 2.5 g/dL Albumin/Globulin Ratio 1.4 (1.0-2.7) Lactic Acid Level 0.70 mmol/L (0.66-2.22) VINEET BERMEO May 19, 2016 10:48
[2016-05-19] MEDS ORDERED: Potassium Phosphate 30 MM in Sodium Chloride 550 ML IV ONE (11:45)
[2016-05-19] MEDS ORDERED: Potassium Phosphate 30 MM in NS 275 ML IV ONE ×2 (12:00→21:00)
[2016-05-19] MEDS ORDERED: POTASSIUM CHLORIDE IV ONE (13:00)
[2016-05-19] MEDS ORDERED: SODIUM CHLORIDE IV ONE (13:00)
[2016-05-19 19:29] LABS: BASOPHILS % (AUTO) 1.6 % (0.0-2.0); EOSINOPHILS % (AUTO) 0.1 % (0.0-3.0); LYMPHOCYTES % (AUTO) 29.8 % (20.0-45.0); MEAN CORPUSCULAR HEMOGLOBIN 25.1 PG (27.0-31.0); MEAN CORPUSCULAR HGB CONC 31.2 G/DL (32.0-36.0); MEAN CORPUSCULAR VOLUME 80 FL (80-99); MEAN PLATELET VOLUME 8.1 FL (6.5-10.1); MONOCYTES % (AUTO) 6.1 % (1.0-10.0); NEUTROPHILS % (AUTO) 62.5 % (45.0-75.0); PLATELET COUNT 129 K/UL (150-450); WHITE BLOOD COUNT 4.9 K/UL (4.8-10.8)
[2016-05-19 21:01] LABS: ALANINE AMINOTRANSFERASE 22 U/L (3-41); ALBUMIN/GLOBULIN RATIO 1.4 (1.0-2.7); ANION GAP 17 (5-15); ASPARTATE AMINO TRANSFERASE 15 U/L (5-40); CALCIUM 8.4 mg/dL (8.6-10.2); CARBON DIOXIDE 24 mEQ/L (20-30); CHLORIDE 97 mEQ/L (98-107); CREATININE 0.7 mg/dL (0.7-1.2); GLOMERULAR FILTRATION RATE > 60 mL/min (>60); HEMOLYSIS 9; MAGNESIUM 1.8 mg/dL (1.7-2.5); PHOSPHORUS 3.3 mg/dL (2.5-4.8); POTASSIUM 3.7 mEQ/L (3.4-4.9); SODIUM 138 mEQ/L (135-145); TOTAL PROTEIN 5.4 g/dL (6.6-8.7)
[2016-05-19 21:18] LABS: BILIRUBIN,DIRECT 0.3 mg/dL (0.1-0.3)
[2016-05-20] VITALS (24 sets, daily range): BP systolic 113–157; BP diastolic 66–112
[2016-05-20] MEDS: D5 1/2NS 1,000 ML IV SCH ×3 (03:03→19:00)
[2016-05-20] MEDS: Morphine Sulfate 4mg/ml Inj IVP PRN ×5 (03:19→22:10)
[2016-05-20 05:02] LABS: ALANINE AMINOTRANSFERASE 25 U/L (3-41); ALBUMIN/GLOBULIN RATIO 1.1 (1.0-2.7); ANION GAP 19 (5-15); ASPARTATE AMINO TRANSFERASE 21 U/L (5-40); CALCIUM 8.6 mg/dL (8.6-10.2); CARBON DIOXIDE 21 mEQ/L (20-30); CHLORIDE 96 mEQ/L (98-107); CREATININE 0.8 mg/dL (0.7-1.2); GLOMERULAR FILTRATION RATE > 60 mL/min (>60); HEMOLYSIS 25; MAGNESIUM 1.7 mg/dL (1.7-2.5); PHOSPHORUS 4.8 mg/dL (2.5-4.8); POTASSIUM 3.6 mEQ/L (3.4-4.9); SODIUM 136 mEQ/L (135-145); TOTAL PROTEIN 6.3 g/dL (6.6-8.7)
[2016-05-20 05:43] LABS: BILIRUBIN,DIRECT 0.2 mg/dL (0.1-0.3)
[2016-05-20 05:51] LABS: EOSINOPHILS % (AUTO) 0.3 % (0.0-3.0); LYMPHOCYTES % (AUTO) 31.5 % (20.0-45.0); MEAN CORPUSCULAR HEMOGLOBIN 25.8 PG (27.0-31.0); MEAN CORPUSCULAR VOLUME 81 FL (80-99); NEUTROPHILS % (AUTO) 56.2 % (45.0-75.0); PLATELET COUNT 145 K/UL (150-450); RED BLOOD COUNT 6.44 M/UL (4.70-6.10); RED CELL DISTRIBUTION WIDTH 12.6 % (11.6-14.8); WHITE BLOOD COUNT 4.9 K/UL (4.8-10.8)
[2016-05-20] MEDS: Insulin Rate Change 1 Each MISC PRN ×11 (08:07→22:55)
[2016-05-20] MEDS: Pantoprazole Inj IVP SCH (08:44)
[2016-05-20] MEDS: Heparin 5000 units/ml inj SUBQ SCH ×2 (08:44→21:10)
--- NOTE | 2016-05-20 10:44 | Pulmonolgy Critical Care Note ---
Critical Care - Asmt/Plan Problems: (1) Ketoacidosis in type I diabetes mellitus (2) Sinus tachycardia (3) medication non-compliance Respiratory: monitor respiratory rate Cardiac: continue to monitor HR/BP Renal: F/U I&O, keep IV fluid, check electrolytes Gastrointestinal: start feedings Endocrine: monitor blood sugar Hematologic: monitor H/H Neurologic: PRN Ativan, PRN Morphine Discussed with: nurses, consultants, pillowcase turnersenior licensing manager - Objective Last 24 Hour Vital Signs Date Time Temp Pulse Resp B/P Pulse Ox O2 Delivery O2 Flow Rate FiO2 05/20/16 10:00 71 14 118/80 100 Room Air 05/20/16 09:00 91 13 113/71 100 Room Air 05/20/16 08:00 91 05/20/16 08:00 97.5 97 14 117/66 100 Room Air 05/20/16 07:00 97 11 142/112 100 Room Air 05/20/16 06:00 81 11 127/88 100 Room Air 05/20/16 05:00 90 11 113/73 100 Room Air 05/20/16 04:00 98 05/20/16 04:00 97.1 96 12 153/105 100 Room Air 05/20/16 03:00 98 17 154/109 100 Room Air 05/20/16 02:00 115 17 154/109 100 Room Air 05/20/16 01:00 97 17 139/89 100 Room Air 05/20/16 00:00 97.9 99 15 127/86 100 Room Air 05/20/16 00:00 95 05/19/16 23:00 10 17 129/95 100 Room Air 05/19/16 22:00 99 13 97/49 100 Room Air 05/19/16 21:00 99 12 123/77 100 Room Air 05/19/16 20:00 97 05/19/16 20:00 98.0 97 14 128/96 100 Room Air 05/19/16 19:00 97 14 125/88 100 Room Air 05/19/16 18:00 90 14 119/72 100 Room Air 05/19/16 17:00 109 20 139/89 100 Room Air 05/19/16 16:00 97.8 96 13 123/81 100 Room Air 05/19/16 16:00 98 05/19/16 15:00 109 21 138/88 100 Room Air 05/19/16 14:00 95 15 121/70 100 Room Air 05/19/16 13:00 96 15 113/72 100 Room Air 05/19/16 12:00 98.0 99 15 124/69 99 Room Air 05/19/16 12:00 95 05/19/16 11:00 104 15 135/87 99 Room Air Condition: critical HEENT: atraumatic, normocephalic Lungs: clear, chest wall tender Heart: HR/BP stable Abdomen: soft, non-tender, feeding tube Extremities: no C/C/E Accucheck: 126 Critical Care - Subjective ROS Limited/Unobtainable: No ICU Day: 3 Condition: critical EKG Rhythm: Sinus Rhythm Drips: d5 1/2 ns I&O: Intake and Output 05/19/16 05/20/16 19:00 07:00 Intake Total 2320.55 ml 2246.0 ml Output Total 1750 ml 1100 ml Balance 570.55 ml 1146.0 ml Intake Oral 480 ml IV Total 2320.55 ml 1766.0 ml Output Urine Total 1750 ml 1100 ml # Bowel Movements 2 Labs: Laboratory Tests Test 05/19/16 19:00 05/19/16 20:00 05/20/16 03:20 White Blood Count 4.9 K/UL (4.8-10.8) 4.9 K/UL (4.8-10.8) Red Blood Count 5.20 M/UL (4.70-6.10) 6.44 M/UL (4.70-6.10) H Hemoglobin 13.1 G/DL (14.2-18.0) L 16.6 G/DL (14.2-18.0) Hematocrit 41.8 % (42.0-52.0) L 52.0 % (42.0-52.0) Mean Corpuscular Volume 80 FL (80-99) 81 FL (80-99) Mean Corpuscular Hemoglobin 25.1 PG (27.0-31.0) L 25.8 PG (27.0-31.0) L Mean Corpuscular Hemoglobin Concent 31.2 G/DL (32.0-36.0) L 32.0 G/DL (32.0-36.0) Red Cell Distribution Width 12.0 % (11.6-14.8) 12.6 % (11.6-14.8) Platelet Count 129 K/UL (150-450) L 145 K/UL (150-450) L Mean Platelet Volume 8.1 FL (6.5-10.1) 8.0 FL (6.5-10.1) Neutrophils (%) (Auto) 62.5 % (45.0-75.0) 56.2 % (45.0-75.0) Lymphocytes (%) (Auto) 29.8 % (20.0-45.0) 31.5 % (20.0-45.0) Monocytes (%) (Auto) 6.1 % (1.0-10.0) 11.0 % (1.0-10.0) H Eosinophils (%) (Auto) 0.1 % (0.0-3.0) 0.3 % (0.0-3.0) Basophils (%) (Auto) 1.6 % (0.0-2.0) 1.0 % (0.0-2.0) Sodium Level 138 mEQ/L (135-145) 136 mEQ/L (135-145) Potassium Level 3.7 mEQ/L (3.4-4.9) 3.6 mEQ/L (3.4-4.9) Chloride Level 97 mEQ/L (98-107) L 96 mEQ/L (98-107) L Carbon Dioxide Level 24 mEQ/L (20-30) 21 mEQ/L (20-30) Anion Gap 17 (5-15) H 19 (5-15) H Blood Urea Nitrogen 3 mg/dL (7-23) L 3 mg/dL (7-23) L Creatinine 0.7 mg/dL (0.7-1.2) 0.8 mg/dL (0.7-1.2) Estimat Glomerular Filtration Rate > 60 mL/min (>60) > 60 mL/min (>60) Glucose Level 273 mg/dL (74-106) H 173 mg/dL (74-106) #H Calcium Level 8.4 mg/dL (8.6-10.2) L 8.6 mg/dL (8.6-10.2) Phosphorus Level 3.3 mg/dL (2.5-4.8) 4.8 mg/dL (2.5-4.8) Magnesium Level 1.8 mg/dL (1.7-2.5) 1.7 mg/dL (1.7-2.5) Total Bilirubin 1.8 mg/dL (0.0-1.2) H 1.9 mg/dL (0.0-1.2) H Direct Bilirubin 0.3 mg/dL (0.1-0.3) 0.2 mg/dL (0.1-0.3) Aspartate Amino Transf (AST/SGOT) 15 U/L (5-40) 21 U/L (5-40) Alanine Aminotransferase (ALT/SGPT) 22 U/L (3-41) 25 U/L (3-41) Alkaline Phosphatase 100 U/L (40-129) 121 U/L (40-129) Total Protein 5.4 g/dL (6.6-8.7) L 6.3 g/dL (6.6-8.7) L Albumin 3.2 g/dL (3.5-5.2) L 3.3 g/dL (3.5-5.2) L Globulin 2.2 g/dL 3.0 g/dL Albumin/Globulin Ratio 1.4 (1.0-2.7) 1.1 (1.0-2.7) VINEET BERMEO May 20, 2016 10:44
[2016-05-21] VITALS (17 sets, daily range): BP systolic 108–144; BP diastolic 53–116
[2016-05-21] MEDS: Morphine Sulfate 4mg/ml Inj IVP PRN ×5 (02:09→20:25)
[2016-05-21] MEDS: D5 1/2NS 1,000 ML IV SCH (03:22)
[2016-05-21 05:26] LABS: BASOPHILS % (AUTO) 2.2 % (0.0-2.0); EOSINOPHILS % (AUTO) 1.4 % (0.0-3.0); LYMPHOCYTES % (AUTO) 33.5 % (20.0-45.0); MEAN CORPUSCULAR HEMOGLOBIN 26.2 PG (27.0-31.0); MEAN CORPUSCULAR HGB CONC 32.9 G/DL (32.0-36.0); MEAN CORPUSCULAR VOLUME 80 FL (80-99); MEAN PLATELET VOLUME 8.9 FL (6.5-10.1); MONOCYTES % (AUTO) 10.2 % (1.0-10.0); NEUTROPHILS % (AUTO) 52.7 % (45.0-75.0); PLATELET COUNT 146 K/UL (150-450); RED BLOOD COUNT 5.71 M/UL (4.70-6.10); RED CELL DISTRIBUTION WIDTH 12.1 % (11.6-14.8); WHITE BLOOD COUNT 5.1 K/UL (4.8-10.8)
[2016-05-21 05:48] LABS: ALANINE AMINOTRANSFERASE 19 U/L (3-41); ALBUMIN/GLOBULIN RATIO 1.3 (1.0-2.7); ANION GAP 12 (5-15); ASPARTATE AMINO TRANSFERASE 17 U/L (5-40); CALCIUM 8.8 mg/dL (8.6-10.2); CARBON DIOXIDE 30 mEQ/L (20-30); CHLORIDE 100 mEQ/L (98-107); CREATININE 0.6 mg/dL (0.7-1.2); CRP QUANT < 0.3 mg/dL (< 0.5); GLOMERULAR FILTRATION RATE > 60 mL/min (>60); HEMOLYSIS 12; MAGNESIUM 1.6 mg/dL (1.7-2.5); PHOSPHORUS 3.5 mg/dL (2.5-4.8); POTASSIUM 3.2 mEQ/L (3.4-4.9); SODIUM 142 mEQ/L (135-145); TOTAL PROTEIN 5.7 g/dL (6.6-8.7)
[2016-05-21] MEDS: Insulin Rate Change 1 Each MISC PRN ×3 (05:49→10:05)
[2016-05-21 08:34] LABS: ERYTHROCYTE SEDIMENTATION RATE 2 MM/HR (0-15)
[2016-05-21] MEDS: Pantoprazole Inj IVP SCH (09:03)
[2016-05-21] MEDS: Heparin 5000 units/ml inj SUBQ SCH ×2 (09:07→20:32)
[2016-05-21] MEDS ORDERED: D5 1/2NS 1000ml IV ONE ×2 (10:21→17:41)
--- NOTE | 2016-05-21 10:25 | Pulmonology Progress Note ---
Assessment/Plan Problems: (1) Ketoacidosis in type I diabetes mellitus (2) Vomiting Assessment/Plan anion gap closed decrease IV fluid change to Levemir and sliding scale. Med/surg Subjective ROS Limited/Unobtainable: No Interval Events: doing better Allergies: Coded Allergies: No Known Allergies (Verified , 09/16/08) Objective Last 24 Hour Vital Signs Date Time Temp Pulse Resp B/P Pulse Ox O2 Delivery O2 Flow Rate FiO2 05/21/16 10:00 95 12 132/88 100 Room Air 05/21/16 09:00 65 13 143/99 100 Room Air 05/21/16 08:00 88 05/21/16 08:00 97.6 88 13 135/100 100 Room Air 05/21/16 07:00 78 16 126/86 100 Room Air 05/21/16 06:00 84 10 108/64 100 Room Air 05/21/16 05:00 79 9 126/72 100 Room Air 05/21/16 04:00 92 05/21/16 04:00 85.0 85 14 134/53 100 Room Air 05/21/16 03:00 88 13 121/72 100 Room Air 05/21/16 02:00 98 16 122/80 100 Room Air 05/21/16 01:00 96 13 141/92 100 Room Air 05/21/16 00:00 97.1 98 8 123/68 100 Room Air 05/21/16 00:00 96 05/20/16 23:03 94 12 143/98 100 Room Air 05/20/16 22:56 97.2 05/20/16 22:00 99 8 149/95 100 Room Air 05/20/16 21:00 102 19 115/91 100 Room Air 05/20/16 20:01 97.2 95 12 124/85 100 Room Air 05/20/16 20:00 95 05/20/16 19:00 95 16 150/96 100 Room Air 05/20/16 18:01 95 12 147/97 100 Room Air 05/20/16 17:00 86 17 121/81 100 Room Air 05/20/16 16:00 97.5 82 8 157/96 100 Room Air 05/20/16 16:00 96 05/20/16 15:00 90 14 123/92 100 Room Air 05/20/16 14:00 96 13 134/89 100 Room Air 05/20/16 13:00 90 14 138/87 100 Room Air 05/20/16 12:00 97.8 89 15 125/78 100 Room Air 05/20/16 12:00 86 05/20/16 11:00 77 14 130/90 100 Room Air Intake and Output 05/20/16 05/21/16 19:00 07:00 Intake Total 2203 ml 2275 ml Output Total 1650 ml 3100 ml Balance 553 ml -825 ml Intake Oral 790 ml 740 ml IV Total 1413 ml 1535 ml Output Urine Total 1650 ml 3100 ml # Bowel Movements 1 General Appearance: WD/WN HEENT: normocephalic, atraumatic Respiratory/Chest: chest wall non-tender, lungs clear Cardiovascular: normal peripheral pulses, normal rate Genitourinary: normal external genitalia Neurologic/Psychiatric: consultant II-XII grossly normal Laboratory Tests 05/21/16 05:00: White Blood Count 5.1, Red Blood Count 5.71, Hemoglobin 14.9, Hematocrit 45.4, Mean Corpuscular Volume 80, Mean Corpuscular Hemoglobin 26.2L, Mean Corpuscular Hemoglobin Concent 32.9, Red Cell Distribution Width 12.1, Platelet Count 146L, Mean Platelet Volume 8.9, Neutrophils (%) (Auto) 52.7, Lymphocytes (%) (Auto) 33.5, Monocytes (%) (Auto) 10.2H, Eosinophils (%) (Auto) 1.4, Basophils (%) ( Auto) 2.2H, Erythrocyte Sedimentation Rate 2, Sodium Level 142, Potassium Level 3.2L, Chloride Level 100, Carbon Dioxide Level 30, Anion Gap 12, Blood Urea Nitrogen 3L, Creatinine 0.6L, Estimat Glomerular Filtration Rate > 60, Glucose Level 124H, Calcium Level 8.8, Phosphorus Level 3.5, Magnesium Level 1.6L, Total Bilirubin 0.9, Aspartate Amino Transf (AST/SGOT) 17, Alanine Aminotransferase (ALT/SGPT) 19, Alkaline Phosphatase 114, C-Reactive Protein, Quantitative < 0.3, Total Protein 5.7L, Albumin 3.3L, Globulin 2.4, Albumin/ Globulin Ratio 1.3 Current Medications Medications (Trade) Dose Ordered Sig/Carlos Route PRN Reason Start Time Stop Time Status Last Admin Dose Admin Acetaminophen (Tylenol) 650 mg Q4H PRN ORAL Fever 05/16/16 08:11 06/15/16 08:10 05/17/16 03:23 Dextrose (Dextrose 50%) PRN PRN IV HYPOGLYCEMIA 05/20/16 06:30 06/19/16 06:29 Dextrose (Dextrose 50%) STAT PRN IV Hypoglycemia 05/21/16 10:30 06/20/16 10:29 Heparin Sodium (Porcine) (Heparin 5000 units/ml) 5,000 units EVERY 12 HOURS SUBQ 05/16/16 10:00 06/15/16 09:59 05/21/16 09:07 Insulin Aspart (NovoLOG) BEFORE MEALS AND HS SUBQ 05/21/16 11:30 06/20/16 11:29 Lorazepam (Ativan 2mg/ml 1ml) 2 mg Q2H PRN IV agitation 05/16/16 08:15 05/23/16 08:14 05/19/16 08:10 Morphine Sulfate (Morphine Sulfate) 4 mg Q4H PRN IVP Severe Pain (Pain Scale 7-10) 05/16/16 08:11 05/23/16 08:10 05/21/16 06:18 Nitroglycerin (Ntg) 0.4 mg Q5M PRN SL Prn Chest Pain 05/16/16 08:11 06/15/16 08:10 Ondansetron HCl (Zofran) 4 mg Q6H PRN IVP Nausea & Vomiting 05/16/16 08:15 06/15/16 08:14 05/19/16 08:10 Pantoprazole (Protonix) 40 mg DAILY IVP 05/16/16 10:00 06/15/16 09:59 05/21/16 09:03 Polyethylene Glycol (Miralax) 17 gm DAILYPRN PRN ORAL Constipation 05/16/16 08:15 06/15/16 08:14 VINEET BERMEO May 21, 2016 10:25
[2016-05-21] MEDS ORDERED: Levemir Flexpen SUBQ SCH (11:30)
[2016-05-21] MEDS ORDERED: NovoLOG Insulin Flexpen SUBQ SCH (11:30)
[2016-05-21] MEDS ORDERED: D5 1/2NS w/KCl 20mEq 1,000 ML IV SCH (12:00)
[2016-05-21] MEDS ORDERED: LORazepam Inj 2mg/ml 1ml IV PRN (14:15)
[2016-05-21] MEDS ORDERED: Nitroglycerin Subl 0.4mg tab (Bottle Of 25) SL PRN (14:15)
[2016-05-21] MEDS: D5 1/2NS w/KCl 20mEq 1,000 ML IV SCH (14:15)
[2016-05-21] MEDS ORDERED: Miralax 17gm pkt ORAL PRN (14:30)
[2016-05-21] MEDS: NovoLOG Insulin Flexpen SUBQ SCH ×2 (17:06→20:31)
[2016-05-21] MEDS ORDERED: NS 275ml ONE (17:41)
[2016-05-21] MEDS: Levemir Flexpen SUBQ SCH (20:32)
[2016-05-22] VITALS: BP 133/74
[2016-05-22] MEDS: Morphine Sulfate 4mg/ml Inj IVP PRN ×6 (00:23→22:02)
[2016-05-22] MEDS: D5 1/2NS w/KCl 20mEq 1,000 ML IV SCH (02:29)
[2016-05-22 04:00] VITALS: BP 123/81
[2016-05-22] MEDS: NovoLOG Insulin Flexpen SUBQ SCH ×6 (06:53→21:24)
[2016-05-22 08:00] VITALS: BP 151/79
[2016-05-22] MEDS: Heparin 5000 units/ml inj SUBQ SCH ×2 (09:00→21:00)
[2016-05-22] MEDS: Levemir Flexpen SUBQ SCH (09:10)
[2016-05-22] MEDS: Pantoprazole Inj IVP SCH (09:16)
--- NOTE | 2016-05-22 10:16 | General Progress Note ---
Assessment/Plan Problem List: (1) Ketoacidosis in type I diabetes mellitus (2) Abdominal pain (3) Dehydration Assessment/Plan change Levemir to 15 units bid add Novolog 8 units ac tic continue sliding scale change IVF to NS Subjective Allergies: Coded Allergies: No Known Allergies (Verified , 09/16/08) All Systems: reviewed and negative except above Subjective transferred out of icu doing better eating fine still on D5NS Objective Last 24 Hour Vital Signs Date Time Temp Pulse Resp B/P Pulse Ox O2 Delivery O2 Flow Rate FiO2 05/22/16 08:00 97.3 81 18 151/79 98 Room Air 05/22/16 04:00 97.7 96 20 123/81 98 Room Air 05/22/16 00:00 98.1 86 20 133/74 100 Room Air 05/21/16 20:00 98.1 102 20 130/83 20 Room Air 05/21/16 16:00 98.2 131 20 144/116 100 Room Air 05/21/16 14:00 78 16 121/89 100 Room Air 05/21/16 13:00 79 16 132/91 100 Room Air 05/21/16 12:10 98.1 05/21/16 12:00 97.9 86 14 120/92 100 Room Air 05/21/16 12:00 90 05/21/16 11:00 92 12 121/79 100 Room Air Intake and Output 05/21/16 05/22/16 19:00 07:00 Intake Total 2417 ml 1155 ml Output Total 700 ml 1100 ml Balance 1717 ml 55 ml Intake Oral 1450 ml 480 ml IV Total 967 ml 675 ml Output Urine Total 700 ml 1100 ml # Voids 2 # Bowel Movements 1 Height (Feet): 5 Height (Inches): 8.00 Weight (Pounds): 135 General Appearance: no apparent distress Neck: non-tender Cardiovascular: normal peripheral pulses Respiratory/Chest: normal breath sounds Abdomen: normal bowel sounds Pelvis: normal external exam Edema: no edema noted Arm (L), no edema noted Arm (R), no edema noted Leg (L), no edema noted Leg (R), no edema noted Pedal (L), no edema noted Pedal (R), no edema noted Generalized Objective Current Medications Medications (Trade) Dose Ordered Sig/Carlos Route PRN Reason Start Time Stop Time Status Last Admin Dose Admin Acetaminophen (Tylenol) 650 mg Q4H PRN ORAL Fever 05/16/16 08:11 06/15/16 08:10 05/17/16 03:23 Albuterol/ Ipratropium (DuoNeb 0.5-3(2.5)mg/3ml) 3 ml Q4H PRN HHN Shortness of Breath 05/16/16 08:11 05/21/16 08:10 Dextrose (Dextrose 50%) PRN PRN IV HYPOGLYCEMIA 05/17/16 11:30 06/16/16 11:29 Dextrose/Sodium Chloride (D5 0.45% NS) 1,000 ml @ 125 mls/hr Q8H IV 05/17/16 11:00 06/16/16 10:59 05/19/16 01:40 Heparin Sodium (Porcine) (Heparin 5000 units/ml) 5,000 units EVERY 12 HOURS SUBQ 05/16/16 10:00 06/15/16 09:59 05/17/16 21:06 Insulin Human Regular (NovoLIN R) 5 units PRN PRN IV BS 200-299 05/17/16 11:30 06/16/16 11:29 05/19/16 05:27 Insulin Human Regular (NovoLIN R) 10 units PRN PRN IV BS=>300 05/17/16 11:30 06/16/16 11:29 Insulin Human Regular/Sodium Chloride (NovoLIN R/ Sodium Chloride) 101 ml @ 0 mls/hr Q24H IV 05/17/16 14:00 06/16/16 13:59 05/18/16 13:28 Lorazepam (Ativan 2mg/ml 1ml) 2 mg Q2H PRN IV agitation 05/16/16 08:15 05/23/16 08:14 05/18/16 09:25 Miscellaneous Medication 1 ea 1 ea PRN PRN MISC Taper 05/17/16 11:30 06/16/16 11:29 05/19/16 06:19 Morphine Sulfate (Morphine Sulfate) 4 mg Q4H PRN IVP Severe Pain (Pain Scale 7-10) 05/16/16 08:11 05/23/16 08:10 05/19/16 05:31 Nitroglycerin (Ntg) 0.4 mg Q5M PRN SL Prn Chest Pain 05/16/16 08:11 06/15/16 08:10 Ondansetron HCl (Zofran) 4 mg Q6H PRN IVP Nausea & Vomiting 05/16/16 08:15 06/15/16 08:14 05/18/16 09:25 Pantoprazole 40 mg 40 mg DAILY IVP 05/16/16 10:00 06/15/16 09:59 05/18/16 09:25 Polyethylene Glycol (Miralax) 17 gm DAILYPRN PRN ORAL Constipation 05/16/16 08:15 06/15/16 08:14 Item Value Date Time Bedside Blood Glucose 165 mg/dl H 05/19/16 0700 Bedside Blood Glucose 172 mg/dl H 05/19/16 0619 Bedside Blood Glucose 229 mg/dl H 05/19/16 0209 Bedside Blood Glucose 124 mg/dl H 05/18/16 2200 Bedside Blood Glucose 162 mg/dl H 05/18/16 1810 Bedside Blood Glucose 72 mg/dl 05/18/16 1400 IRENE MCHUGH 25, 2017 10:16
[2016-05-22 12:00] VITALS: BP 137/72
[2016-05-22] MEDS: NS w/KCl 20mEq 1,000 ML IV SCH (13:20)
[2016-05-22 16:00] VITALS: BP 139/86
[2016-05-22 20:00] VITALS: BP 132/78
[2016-05-22] MEDS ORDERED: Levemir Flexpen SUBQ SCH (21:00)
[2016-05-23] VITALS: BP 150/83
[2016-05-23] MEDS: NS w/KCl 20mEq 1,000 ML IV SCH (00:50)
[2016-05-23] MEDS: Morphine Sulfate 4mg/ml Inj IVP PRN ×2 (01:56→06:05)
[2016-05-23 04:00] VITALS: BP 136/68
[2016-05-23] MEDS: NovoLOG Insulin Flexpen SUBQ SCH ×2 (06:11→09:04)
[2016-05-23 08:00] VITALS: BP 144/83
[2016-05-23] MEDS: Heparin 5000 units/ml inj SUBQ SCH (09:00)
[2016-05-23] MEDS ORDERED: Levemir Flexpen SUBQ SCH (09:00)
[2016-05-23] MEDS: Pantoprazole Inj IVP SCH (09:29)
--- NOTE | 2016-05-23 11:06 | General Progress Note ---
Assessment/Plan Problem List: (1) Ketoacidosis in type I diabetes mellitus (2) Abdominal pain (3) Dehydration Assessment/Plan reduce Levemir to 10 units bid continue Novolog 8 units ac tic continue sliding scale stable for DC home from endo stand point Subjective Allergies: Coded Allergies: No Known Allergies (Verified , 09/16/08) All Systems: reviewed and negative except above Subjective hypoglycemic event last night Objective Last 24 Hour Vital Signs Date Time Temp Pulse Resp B/P Pulse Ox O2 Delivery O2 Flow Rate FiO2 05/23/16 08:00 96.8 83 18 144/83 100 Room Air 05/23/16 04:00 97.5 78 19 136/68 99 Room Air 05/23/16 00:00 97.7 73 18 150/83 100 Room Air 05/22/16 20:00 97.7 79 16 132/78 100 Room Air 05/22/16 16:00 97.7 73 18 139/86 100 Room Air 05/22/16 12:00 97.0 100 18 137/72 97 Room Air Intake and Output 05/22/16 05/23/16 19:00 07:00 Intake Total 1725 ml 1430 ml Output Total 900 ml Balance 825 ml 1430 ml Intake Oral 1200 ml 680 ml IV Total 525 ml 750 ml Output Urine Total 900 ml # Voids 5 2 Height (Feet): 5 Height (Inches): 8.00 Weight (Pounds): 135 General Appearance: no apparent distress Neck: normal alignment Cardiovascular: normal rate Respiratory/Chest: lungs clear Abdomen: normal bowel sounds Objective Current Medications Medications (Trade) Dose Ordered Sig/Carlos Route PRN Reason Start Time Stop Time Status Last Admin Dose Admin Acetaminophen (Tylenol) 650 mg Q4H PRN ORAL T>100.5 05/21/16 14:30 06/20/16 14:29 Dextrose STAT PRN IV Hypoglycemia 05/22/16 10:15 06/21/16 10:14 Heparin Sodium (Porcine) (Heparin 5000 units/ml) 5,000 units EVERY 12 HOURS SUBQ 05/21/16 21:00 06/20/16 20:59 Insulin Aspart (NovoLOG) BEFORE MEALS AND HS SUBQ 05/21/16 16:30 06/20/16 16:29 05/23/16 06:11 Insulin Aspart (NovoLOG) 8 units NOVOTIAC SUBQ 05/22/16 11:50 06/21/16 11:49 05/23/16 09:04 Insulin Detemir (Levemir) 10 units EVERY 12 HOURS SUBQ 05/23/16 09:00 06/22/16 08:59 05/23/16 09:28 Lorazepam (Ativan 2mg/ml 1ml) 2 mg Q2H PRN IV agitation 05/21/16 14:15 05/28/16 14:14 Morphine Sulfate (Morphine Sulfate) 4 mg Q4H PRN IVP Severe Pain (Pain Scale 7-10) 05/21/16 14:30 05/28/16 14:29 05/23/16 06:05 Nitroglycerin (Ntg) 0.4 mg Q5M PRN SL Prn Chest Pain 05/21/16 14:15 06/20/16 14:14 Ondansetron HCl (Zofran) 4 mg Q6H PRN IVP Nausea & Vomiting 05/21/16 14:15 06/20/16 14:14 05/21/16 16:18 Pantoprazole (Protonix) 40 mg DAILY IVP 05/22/16 09:00 06/21/16 08:59 05/23/16 09:29 Polyethylene Glycol (Miralax) 17 gm DAILYPRN PRN ORAL Constipation 05/21/16 14:30 06/20/16 14:29 Sodium Chloride (NS w/KCl 20mEq) 1,000 ml @ 75 mls/hr [id number] IV 05/22/16 11:30 06/21/16 11:29 05/22/16 13:20 Item Value Date Time Bedside Blood Glucose 161 mg/dl H 05/20/16 0600 Bedside Blood Glucose 147 mg/dl H 05/20/16 0200 Bedside Blood Glucose 160 mg/dl H 05/19/16 2209 Bedside Blood Glucose 149 mg/dl H 05/19/16 1804 Bedside Blood Glucose 150 mg/dl H 05/22/16 0910 Bedside Blood Glucose 150 mg/dl H 05/22/16 0655 Bedside Blood Glucose 180 mg/dl H 05/21/16 2100 Bedside Blood Glucose 146 mg/dl H 05/21/16 1706 Bedside Blood Glucose 144 mg/dl H 05/21/16 1142 Bedside Blood Glucose 246 mg/dl H 05/23/16 0928 Bedside Blood Glucose 127 mg/dl H 05/23/16 0641 Bedside Blood Glucose 122 mg/dl H 05/22/162123 Bedside Blood Glucose 262 mg/dl H 05/22/16 1644 IRENE MCHUGH May 23, 2016 11:06
[2016-05-23 12:00] VITALS: BP 128/75
--- NOTE | 2016-05-23 23:12 | Pulmonology Progress Note ---
Assessment/Plan Problems: (1) Ketoacidosis in type I diabetes mellitus (2) Vomiting Assessment/Plan anion gap closed decrease IV fluid change to Levemir and sliding scale. Med/surg Subjective ROS Limited/Unobtainable: No Constitutional: Reports: anorexia, fatigue Gastrointestinal/Abdominal: Reports: nausea, vomiting Neurologic: Reports: weakness Allergies: Coded Allergies: No Known Allergies (Verified , 09/16/08) Objective Last 24 Hour Vital Signs Date Time Temp Pulse Resp B/P Pulse Ox O2 Delivery O2 Flow Rate FiO2 05/23/16 12:00 97.5 76 18 128/75 99 Room Air 05/23/16 08:00 96.8 83 18 144/83 100 Room Air 05/23/16 04:00 97.5 78 19 136/68 99 Room Air 05/23/16 00:00 97.7 73 18 150/83 100 Room Air Intake and Output 05/22/16 05/23/16 19:00 07:00 Intake Total 1725 ml 1430 ml Output Total 900 ml Balance 825 ml 1430 ml Intake Oral 1200 ml 680 ml IV Total 525 ml 750 ml Output Urine Total 900 ml # Voids 5 2 General Appearance: no acute distress HEENT: normocephalic, atraumatic, PERRL Respiratory/Chest: chest wall non-tender, lungs clear, normal breath sounds, no respiratory distress, no accessory muscle use Cardiovascular: normal peripheral pulses, normal rate, regular rhythm, no JVD Abdomen: normal bowel sounds, soft, non tender, no organomegaly Genitourinary: normal external genitalia Extremities: no cyanosis Skin: no rash, no lesions Neurologic/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
[2016-05-25] MEDS ORDERED: LEVEMIR FL100 UNIT/1 SUBQ (09:56)
[2016-05-25] MEDS ORDERED: NOVOLOG100 UNITS1 SUBQ (09:56)
--- NOTE | 2016-05-25 10:01 | Discharge Summary ---
Discharge Summary Hospital Course Date of Admission May 16, 2016 at 07:10 Date of Discharge May 23, 2016 at 12:00 Admitting Diagnosis DKA HPI Hamzah Saravia is a 25 year old male who was admitted on May 16, 2016 at 07: 10 for Diabetic Ketoacidosis Hospital Course dc summary #[id number] Discharge Medications Changed Medications: Insulin Aspart (Novolog Flexpen) 100 Units/Ml Pen 8 UNITS SUBQ TIAC, #10 EA (Changed from: 10 UNITS) Insulin Detemir (Levemir Flexpen) 100 Units/Ml Pen 10 UNITS SUBQ BID, #10 EA (Changed from: 25 UNITS; BEDTIME) Discharge Condition Upon Discharge: stable Discharge Disposition Patient was discharged to Home (01) Discharge Diagnoses: Discharge Instructions Discharge Instructions Special Instructions I have been assigned to complete a D/C Summary on this account. I was not involved in the patient management Niecy Dickson NP ([facility]) May 25, 2016 10:01
--- NOTE | 2016-05-26 04:09 | Discharge Summary 2 SIG ---
DATE OF ADMISSION: 05/16/2016 DATE OF DISCHARGE: 05/23/2016 REASON FOR ADMISSION: 25 years old male with a history of type 1 diabetes, and history of diabetic ketoacidosis presented with a complaint of abdominal pain, nausea, and vomiting. The patient reported being compliant with the insulin regimen. He denied diarrhea or urinary symptoms. Laboratory workup was consistent with diabetic ketoacidosis, elevated anion gap of 33, urine +4 ketones, bicarbonate 12, and blood sugar 378. The patient was started on insulin drip and transferred to ICU for further management of diabetic ketoacidosis. ADMITTING DIAGNOSES: 1. Diabetic ketoacidosis. 2. Diabetes mellitus, type 1. 3. Abdominal pain. 4. Vomiting. 5. Dehydration. HOSPITAL STAY: The patient was admitted to intensive care unit. The patient started on insulin drip as per protocol and intravenous hydration. Potassium was replaced as needed. Blood sugar was checked as per protocol. Endocrinology consult was requested. Insulin drip continued until anion gap closed and bicarbonate was stable. Insulin drip was changed to long acting Levemir and short acting NovoLog before meals as well as the sliding scale insulin as needed. Doses of long and short-acting insulin were optimized as per retrieval specialist. The patient was able to tolerate diet. IV fluids discontinued. No nausea. No vomiting. Blood sugar better. Urine toxicology screen was positive for marijuana. The patient was counseled not to smoke marijuana,which could have contributed to nausea and vomiting. Abdominal pain resolved, likely was secondary to diabetic ketoacidosis, The patient was stable for discharge. DISCHARGE DIAGNOSES: 1. Diabetic ketoacidosis. 2. Diabetes mellitus Type 1. 3. Dehydration, - resolved. 4. Hypokalemia. 5. Abdominal pain, resolved DISCHARGE MEDICATIONS: See medication reconciliation list. DISCHARGE INSTRUCTIONS: The patient was discharged home. Follow up with the primary medical doctor. Ashleigh Meehan M.D. I have been assigned to dictate discharge summary on this account and I was not involved in the patient's management. Niecy Dickson ([facility] Center[facility]go N.PTanisha DR: JAY JOB#: [id number] CC: JOE
--- NOTE | 2016-06-07 15:03 | Diagnostic Imaging Report ---
Indications: Needs long-term IV access Technique: Procedure performed at bedside. Ultrasound confirms patent compressible left brachial vein. Total sterile technique, including sterile probe cover and sterile gel, sterile gloves, hand hygiene, hat, mask,, sterile gown, large sterile drape, and preparation with 2% chlorhexidine utilized. Local anesthesia with 1% lidocaine. Under real-time ultrasound guidance, puncture left brachial vein using 21-gauge needle, passage 0.018 guidewire, exchange for 5 Liberian peel-away sheath. 5 Liber[place] Bard dual-lumen power PICC cut to we cm. It was inserted through the peel-away sheath. Peel-away sheath and guidewire removed. Catheter fixed to the skin. Both catheter ports aspirated and flushed. Patient tolerated procedure well, without immediate complication. Followup chest x-ray obtained, documents catheter tip position at the high right atrium. Impression: Successful bedside placement of left arm PICC under sonographic guidance, as described above.
== END 2016-05-23 12:00 | disposition home or self-care (01) | DRG 950 ==
LOC: EDBD 01:40 → EMR 02:00 → ICU 07:10 → EDBEDREQ 11:40 → 4W 05-21 13:55
PROC: 02H633Z Insertion of Infusion Device into Right Atrium, Percutaneous Approach (ICD-10-PCS; principal; 2016-05-18)
PROC: B244ZZZ Ultrasonography of Right Heart (ICD-10-PCS; 2016-05-18)
DX: E10.10 Type 1 diabetes mellitus with ketoacidosis without coma (principal); R00.1 Bradycardia, unspecified; E86.0 Dehydration; E87.6 Hypokalemia; Z79.4 Long term (current) use of insulin; Z91.19 Patient's noncompliance with other medical treatment and regimen; Z91.14 Patient's other noncompliance with medication regimen
CPT/HCPCS: 36415; 36569; 36600; 76937; 80048; 80053; 80076; 80300; 81001; 82248; 82803; 82962; 83605; 83735; 84100; 85025; 85610; 85651; 85730; 86140; J1815; J2405; S5561

== ENCOUNTER 2017-12-10 10:54 | Inpatient (IN) | payer OTHER ==
[~2017-12-10] VITALS: Ht 175.3 cm; Wt 61.2 kg
[2017-12-10] VITALS (12 sets, daily range): BP systolic 118–167; BP diastolic 72–109
[~2017-12-10 10:54] MED LIST changes: -Tubing IV Cassette IV ONE
--- NOTE | 2017-12-10 11:06 | Emergency Room Report ---
History of Present Illness General Chief Complaint: Generalized Weakness Source: Patient Present Illness HPI Patient is a 27-year-old male presented after increased generalized weakness and abdominal pain. Patient prior history of diabetes and recently hospitalized at [facility]. The patient had recently been discharge. The patient had the elevated blood sugar when checked by EMS. The patient reports having episodes of vomiting and diarrhea. Allergies: Coded Allergies: No Known Allergies (Verified , 09/16/08) Patient History Reviewed Nursing Documentation: PMH: Agreed; PSxH: Agreed Nursing Documentation-PMH Past Medical History: No History, Except For Hx Cardiac Problems: No Hx Hypertension: No Hx Pacemaker: No Hx Asthma: No Hx COPD: No Hx Diabetes: Yes - type 1 Hx Cancer: No Hx Gastrointestinal Problems: Yes Hx Dialysis: No Hx Neurological Problems: No Hx Cerebrovascular Accident: No Hx Seizures: No Review of Systems All Other Systems: negative except mentioned in HPI Physical Exam Vital Signs Date Time Temp Pulse Resp B/P (MAP) Pulse Ox O2 Delivery O2 Flow Rate FiO2 12/10/17 10:48 97.5 147 14 118/72 100 Room Air 97.5 Sp02 EP Interpretation: reviewed, normal General Appearance: normal inspection, alert, lethargic, thin, Chronically Ill Head: atraumatic ENT: normal ENT inspection, hearing grossly normal, normal voice Neck: normal inspection, full range of motion, supple, no bony tend Respiratory: normal inspection, lungs clear, normal breath sounds, no respiratory distress, no retraction, no wheezing Cardiovascular #1: no edema, tachycardia Gastrointestinal: normal inspection, normal bowel sounds, non tender, soft, no guarding, no hernia Genitourinary: no CVA tenderness Musculoskeletal: normal inspection, back normal, normal range of motion Neurologic: normal inspection, alert, oriented x3, responsive, leather staker III-XII nml as tested, speech normal Psychiatric: normal inspection, judgement/insight normal, mood/affect normal Skin: normal inspection, normal color, no rash Procedures Critical Care Time Critical Care Time Patient had a critical medical condition which untreated could potentially result in life or limb threatening injury. Total critical care time excluding procedures approximately 45 minutes. Medical Decision Making Diagnostic Impression: Primary Impression: Ketoacidosis in type I diabetes mellitus Additional Impressions: Sinus tachycardia Dehydration ER Course Patient presented for abdominal pain. Differential diagnoses included diabetic ketoacidosis, ischemic bowel, appendicitis, perforated viscus, abdominal aortic aneurysm, inferior myocardial infarction, viral gastroenteritis. Because of complexity of patient's case laboratory testing and imaging studies were ordered. The laboratory testing was notable for a low bicarbonate and of elevated anion gap the consistent with diabetic ketoacidosis. Patient was noted to have the venous pH of greater than 7. The patient was started on IV fluids as well as IV insulin and insulin drip. The patient was noted to be poorly compliant with his medication is likely the etiology for his diabetic ketoacidosis. Dr. Phoenix Palomo was contacted for Dr. Linn for inpatient management due to capitated physician Labs Test 12/10/17 11:40 12/10/17 11:45 12/10/17 12:15 Urine Color Pale yellow Urine Appearance Clear Urine pH 5 (4.5-8.0) Urine Specific [place] 1.015 (1.005-1.035) Urine Protein Negative (NEGATIVE) Urine Glucose (UA) 4+ (NEGATIVE) Urine Ketones 4+ (NEGATIVE) Urine Blood Negative (NEGATIVE) Urine Nitrite Negative (NEGATIVE) Urine Bilirubin Negative (NEGATIVE) Urine Urobilinogen Normal MG/DL (0.0-1.0) Urine Leukocyte Esterase Negative (NEGATIVE) White Blood Count 12.0 K/UL (4.8-10.8) Red Blood Count 6.90 M/UL (4.70-6.10) Hemoglobin 12.6 G/DL (14.2-18.0) Hematocrit 44.6 % (42.0-52.0) Mean Corpuscular Volume 65 FL (80-99) Mean Corpuscular Hemoglobin 18.2 PG (27.0-31.0) Mean Corpuscular Hemoglobin Concent 28.3 G/DL (32.0-36.0) Red Cell Distribution Width 18.9 % (11.6-14.8) Platelet Count 556 K/UL (150-450) Mean Platelet Volume 6.8 FL (6.5-10.1) Neutrophils (%) (Auto) % (45.0-75.0) Lymphocytes (%) (Auto) % (20.0-45.0) Monocytes (%) (Auto) % (1.0-10.0) Eosinophils (%) (Auto) % (0.0-3.0) Basophils (%) (Auto) % (0.0-2.0) Differential Total Cells Counted 100 Neutrophils % (Manual) 87 % (45-75) Lymphocytes % (Manual) 8 % (20-45) Monocytes % (Manual) 2 % (1-10) Eosinophils % (Manual) 0 % (0-3) Basophils % (Manual) 0 % (0-2) Band Neutrophils 3 % (0-8) Platelet Estimate Increased Platelet Morphology Normal Polychromasia Occasional Hypochromasia 2+ Anisocytosis 2+ Microcytosis 3+ Tear Drop Cells Occasional Ovalocytes 1+ [place] Cells 2+ Sodium Level 137 MMOL/L (136-145) Potassium Level 4.5 MMOL/L (3.5-5.1) Chloride Level 93 MMOL/L (98-107) Carbon Dioxide Level 8 MMOL/L (21-32) Anion Gap 36 mmol/L (5-15) Blood Urea Nitrogen 24 mg/dL (7-18) Creatinine 1.7 MG/DL (0.55-1.30) Estimat Glomerular Filtration Rate 59.4 mL/min (>60) Glucose Level 665 MG/DL (74-106) Calcium Level 10.1 MG/DL (8.5-10.1) Magnesium Level 2.3 MG/DL (1.8-2.4) Total Bilirubin 1.5 MG/DL (0.2-1.0) Direct Bilirubin 0.3 MG/DL (0.0-0.3) Aspartate Amino Transf (AST/SGOT) 25 U/L (15-37) Alanine Aminotransferase (ALT/SGPT) 40 U/L (12-78) Alkaline Phosphatase 202 U/L (46-116) Total Protein 8.8 G/DL (6.4-8.2) Albumin 4.3 G/DL (3.4-5.0) Globulin 4.5 g/dL Albumin/Globulin Ratio 1.0 (1.0-2.7) Acetone Level Positive-moderate (NEGATIVE) Venous Bld O2 Saturation (Measured) 65.5 Methemoglobin 0.6 EKG Diagnostic Results Rate: tachycardiac Rhythm: NSR ST Segments: no acute changes - 141 HR Last Vital Signs Date Time Temp Pulse Resp B/P (MAP) Pulse Ox O2 Delivery O2 Flow Rate FiO2 12/10/17 10:48 97.5 147 14 118/72 100 Room Air 97.5 Status: unchanged Condition: Critical Augusto Joe MD Dec 10, 2017 11:06
[2017-12-10 11:50] LABS: APPEARANCE,URINE CLEAR; BILIRUBIN, URINE NEGATIVE (NEGATIVE); COLOR,URINE PALE YELLOW; GLUCOSE, URINE (UA) 4+ (NEGATIVE); KETONES,URINE 4+ (NEGATIVE); LEUKOCYTE ESTERASE ,URINE NEGATIVE (NEGATIVE); NITRITE,URINE NEGATIVE (NEGATIVE); PH,URINE 5 (4.5-8.0); PROTEIN,URINE NEGATIVE (NEGATIVE); UROBILINOGEN,URINE NORMAL MG/DL (0.0-1.0)
[2017-12-10 12:02] LABS: HEMATOCRIT 44.6 % (42.0-52.0); HEMOGLOBIN 12.6 G/DL (14.2-18.0); MEAN CORPUSCULAR VOLUME 65 FL (80-99); PLATELET COUNT 556 K/UL (150-450); RED CELL DISTRIBUTION WIDTH 18.9 % (11.6-14.8)
[2017-12-10 12:26] LABS: ALANINE AMINOTRANSFERASE 40 U/L (12-78); ALBUMIN 4.3 G/DL (3.4-5.0); ALKALINE PHOSPHATASE 202 U/L (46-116); ANION GAP 36 mmol/L (5-15); ASPARTATE AMINO TRANSFERASE 25 U/L (15-37); BILIRUBIN,TOTAL 1.5 MG/DL (0.2-1.0); BLOOD UREA NITROGEN 24 mg/dL (7-18); CALCIUM 10.1 MG/DL (8.5-10.1); CHLORIDE 93 MMOL/L (98-107); CREATININE 1.7 MG/DL (0.55-1.30); POTASSIUM 4.5 MMOL/L (3.5-5.1); SODIUM 137 MMOL/L (136-145)
[2017-12-10 12:27] LABS: CARBON DIOXIDE 8 MMOL/L (21-32)
[2017-12-10 12:28] LABS: BILIRUBIN,DIRECT 0.3 MG/DL (0.0-0.3)
[2017-12-10] MEDS ORDERED: Insulin Human Regular 100units/ml 3ml IV ONE (12:45)
[2017-12-10] MEDS ORDERED: Insulin Rate Change 1 Each MISC PRN ×2 (13:30→15:15)
[2017-12-10] MEDS ORDERED: Enoxaparin 30mg Inj SUBQ SCH (15:00)
[2017-12-10] MEDS ORDERED: Insulin Human Regular 100units/ml 3ml IV PRN ×2 (15:15)
[2017-12-10] MEDS: Insulin Human Regular 100units/ml 3ml IV PRN ×4 (15:41→19:21)
[2017-12-10] MEDS: Hydromorphone 0.5mg/0.5ml inj IVP PRN (17:12)
[2017-12-10] MEDS: NS w/KCl 20mEq 1,000 ML IV SCH ×2 (17:17→22:00)
--- NOTE | 2017-12-10 17:20 | Cardiac Electrophysiology PN ---
Subjective Subjective [id number] Objective Last 24 Hour Vital Signs Date Time Temp Pulse Resp B/P (MAP) Pulse Ox O2 Delivery O2 Flow Rate FiO2 12/10/17 17:12 97.5 12/10/17 16:00 Room Air 12/10/17 14:51 97.5 140 18 123/78 100 Room Air 97.5 12/10/17 14:00 140 18 149/88 100 Room Air 12/10/17 12:15 150 20 123/78 100 Room Air 12/10/17 11:00 97.5 149 14 118/72 100 Room Air 97.5 12/10/17 10:48 97.5 147 14 118/72 100 Room Air 97.5 Laboratory Tests Test 12/10/17 11:40 12/10/17 11:45 12/10/17 12:15 Urine Color Pale yellow Urine Appearance Clear Urine pH 5 (4.5-8.0) Urine Specific [place] 1.015 (1.005-1.035) Urine Protein Negative (NEGATIVE) Urine Glucose (UA) 4+ (NEGATIVE) H Urine Ketones 4+ (NEGATIVE) H Urine Blood Negative (NEGATIVE) Urine Nitrite Negative (NEGATIVE) Urine Bilirubin Negative (NEGATIVE) Urine Urobilinogen Normal MG/DL (0.0-1.0) Urine Leukocyte Esterase Negative (NEGATIVE) White Blood Count 12.0 K/UL (4.8-10.8) H Red Blood Count 6.90 M/UL (4.70-6.10) H Hemoglobin 12.6 G/DL (14.2-18.0) L Hematocrit 44.6 % (42.0-52.0) Mean Corpuscular Volume 65 FL (80-99) L Mean Corpuscular Hemoglobin 18.2 PG (27.0-31.0) L Mean Corpuscular Hemoglobin Concent 28.3 G/DL (32.0-36.0) L Red Cell Distribution Width 18.9 % (11.6-14.8) H Platelet Count 556 K/UL (150-450) H Mean Platelet Volume 6.8 FL (6.5-10.1) Neutrophils (%) (Auto) % (45.0-75.0) Lymphocytes (%) (Auto) % (20.0-45.0) Monocytes (%) (Auto) % (1.0-10.0) Eosinophils (%) (Auto) % (0.0-3.0) Basophils (%) (Auto) % (0.0-2.0) Differential Total Cells Counted 100 Neutrophils % (Manual) 87 % (45-75) H Lymphocytes % (Manual) 8 % (20-45) L Monocytes % (Manual) 2 % (1-10) Eosinophils % (Manual) 0 % (0-3) Basophils % (Manual) 0 % (0-2) Band Neutrophils 3 % (0-8) Platelet Estimate Increased H Platelet Morphology Normal Polychromasia Occasional Hypochromasia 2+ Anisocytosis 2+ Microcytosis 3+ Tear Drop Cells Occasional Ovalocytes 1+ [place] Cells 2+ Sodium Level 137 MMOL/L (136-145) Potassium Level 4.5 MMOL/L (3.5-5.1) Chloride Level 93 MMOL/L (98-107) L Carbon Dioxide Level 8 MMOL/L (21-32) *L Anion Gap 36 mmol/L (5-15) H Blood Urea Nitrogen 24 mg/dL (7-18) H Creatinine 1.7 MG/DL (0.55-1.30) H Estimat Glomerular Filtration Rate 59.4 mL/min (>60) Glucose Level 665 MG/DL (74-106) *H Calcium Level 10.1 MG/DL (8.5-10.1) Magnesium Level 2.3 MG/DL (1.8-2.4) Total Bilirubin 1.5 MG/DL (0.2-1.0) H Direct Bilirubin 0.3 MG/DL (0.0-0.3) Aspartate Amino Transf (AST/SGOT) 25 U/L (15-37) Alanine Aminotransferase (ALT/SGPT) 40 U/L (12-78) Alkaline Phosphatase 202 U/L (46-116) H Total Protein 8.8 G/DL (6.4-8.2) H Albumin 4.3 G/DL (3.4-5.0) Globulin 4.5 g/dL Albumin/Globulin Ratio 1.0 (1.0-2.7) Acetone Level Positive-moderate (NEGATIVE) Venous Blood pH Pending Venous Blood Partial Pressure CO2 Pending Venous Blood Partial Pressure O2 Pending Venous Blood HCO3 Pending Venous Blood Total Carbon Dioxide Pending Venous Bld O2 Saturation (Measured) 65.5 Venous Blood Oxygen Saturation Pending Venous Blood Base Excess Pending Methemoglobin 0.6 Sodium (Blood Gas) Pending Microbiology Date/Time Source Procedure Growth Status 12/10/17 11:50 Rectum Received Kory Vyas MD Dec 10, 2017 17:20
--- NOTE | 2017-12-10 18:32 | History and Physical Report ---
DATE OF ADMISSION: 12/10/2017 REASON FOR ADMISSION: 1. Acute kidney injury. 2. Metabolic acidosis. 3. DKA. 4. Dehydration. HISTORY OF PRESENT ILLNESS: The patient is a well-known 27-year-old gentleman with multiple admissions for DKA. The patient has known diabetes and was recently discharged from [facility] for similar reason. He now returns to [facility] again with elevated serum glucose of over 600, creatinine 1.7, serum bicarbonate of 8. The patient is requesting narcotics. He is denying any nausea, vomiting, or diarrhea. He has not been taking his medications or following his diabetic diet since his recent discharge from [facility]. ALLERGIES: No known drug allergies. PAST MEDICAL HISTORY: Diabetes mellitus. FAMILY HISTORY: Positive for diabetes. PAST SURGICAL HISTORY: Noncontributory. REVIEW OF SYSTEMS: NEUROLOGIC: The patient denies headache, change in vision, syncope, presyncopal episodes. CARDIOVASCULAR: No current chest pain, palpitations, or angina. PULMONARY: No difficulty breathing, productive cough, or sputum. GASTROINTESTINAL/GENITOURINARY: No change in urinary or bowel habits. No nausea, vomiting, or diarrhea. ENDOCRINOLOGIC: No night sweats, fevers, or chills. LABORATORY DATA: Labs dated December 10, 2017, sodium 137, potassium 4.5, chloride 93, bicarbonate 8, BUN 24, creatinine 1.7, glucose 665, calcium 10.1, magnesium 2.3. Hemoglobin 12.6, white cell count 12, platelet count 556,000. PHYSICAL EXAMINATION: VITAL SIGNS: Blood pressure 123/78, respiratory rate 20, heart rate 150, temperature 97.5. GENERAL: The patient is awake, alert, in no acute distress. HEENT: Extraocular muscles intact. No lymphadenopathy noted. Oropharyngeal mucosa is clear and dry. CARDIOVASCULAR: S1, S2. No rubs or gallops. Tachycardic. ABDOMEN: Nondistended and nontender. EXTREMITIES: No edema noted. ASSESSMENT AND PLAN: 1. DKA. At this time, the patient will be admitted to intensive care unit and started on aggressive hydration and insulin drip following DKA protocol to close anion gap. Dr. Meehan has been consulted for further assistance. 2. Tachycardic, heart rate 150, most likely secondary to dehydration. The patient will be given fluid bolus and initiated on fluids. Dr. Vyas to follow and manage. 3. Anion-gap acidosis secondary to DKA. Continue aggressive hydration and correction of underlying DKA. 4. Acute kidney injury secondary to volume depletion from DKA. IV fluids will be initiated and electrolytes will be monitored carefully. The patient has long history of noncompliance of his diabetic medications and repeated hospitalizations for DKA. He continues to request narcotics. Phoenix Palomo MD DR: Shankar JOB#: [id number] CC: JOE
[2017-12-11] VITALS (25 sets, daily range): BP systolic 129–181; BP diastolic 83–113
--- NOTE | 2017-12-11 02:45 | Consultation ---
DATE OF CONSULTATION: 12/10/2017 CARDIOLOGY CONSULTATION CONSULTING PHYSICIAN: Kory Vyas M.D. REFERRING PHYSICIAN: Coby Zee M.D. REASON FOR CONSULTATION: Tachycardia. HISTORY OF PRESENT ILLNESS: The patient is a 27-year-old gentleman with history of insulin-dependent diabetes, presented to the emergency room with increased abdominal pain and generalized weakness. The patient has insulin-dependent diabetes, was recently admitted to [facility] and was discharged. The patient by paramedics and the patient was noted in the ER to have a heart rate of around 150s. The patient was admitted to intensive care unit for diabetic ketoacidosis and Cardiology consultation was obtained for further evaluation and management. REVIEW OF SYSTEMS: Review of systems was performed and was negative other than what was mentioned in the history of present illness. PAST MEDICAL HISTORY: Includes insulin-dependent diabetes. FAMILY HISTORY: Noncontributory. SOCIAL HISTORY: Does not smoke or drink alcohol. PHYSICAL EXAMINATION: VITAL SIGNS: Blood pressure is 122/78, pulse is 150, respirations 18 and temperature 97.5. NECK: Showed no JVD. LUNGS: Clear. CARDIOVASCULAR: Shows tachycardic. S1, S2 with no gallop or murmur. ABDOMEN: Soft. EXTREMITIES: No pitting edema. LABORATORY AND DIAGNOSTIC DATA: His EKG shows sinus tachycardia at a rate of 150, no acute ST-T wave abnormalities. Labs showed white count of , hemoglobin 12.6, hematocrit of 44.6, and platelet count 556,000. Sodium 137, potassium 4.5, BUN of 25, creatinine 1.7, and glucose of 665. Ketone is positive, moderate. ASSESSMENT AND PLAN: 1. Tachycardia. The heart rate even though is 150, it is truly sinus tachycardia with no evidence of atrial fibrillation or atrial flutter or any other tachyarrhythmias. The treatment underlying diabetic ketoacidosis and likely severe dehydration. The patient was given either fluids as well as insulin. We will get an echocardiogram to evaluate for ejection fraction and wall motion abnormality and completely rule out myocardial infarction protocol. 2. Diabetes ketoacidosis. Thank you very much for allowing me to participate in the care of this patient. Please do not hesitate to contact me for any questions regarding my evaluation. Kory Vyas M.D. DR: OREN JOB#: [id number] CC:
[2017-12-11] MEDS: Hydromorphone 0.5mg/0.5ml inj IVP PRN (04:00)
[2017-12-11] MEDS: NS w/KCl 20mEq 1,000 ML IV SCH (04:10)
[2017-12-11 05:52] LABS: HEMATOCRIT 37.2 % (42.0-52.0); MEAN CORPUSCULAR VOLUME 63 FL (80-99); PLATELET COUNT 442 K/UL (150-450); RED BLOOD COUNT 5.92 M/UL (4.70-6.10); WHITE BLOOD COUNT 20.3 K/UL (4.8-10.8)
[2017-12-11 06:36] LABS: ANION GAP 11 mmol/L (5-15); BLOOD UREA NITROGEN 10 mg/dL (7-18); CARBON DIOXIDE 21 MMOL/L (21-32); CHLORIDE 110 MMOL/L (98-107); POTASSIUM 4.7 MMOL/L (3.5-5.1); SODIUM 141 MMOL/L (136-145)
--- NOTE | 2017-12-11 08:39 | Nephrology Progress Note ---
Assessment/Plan Assessment/Plan A/P 1) DKA- resolved - change to low carb diet, insulin SS - Case Manger consult for DC with HH - IVFs 2) Leukocytosis- afebrile, stress/DKA per ID 3) HTN- start oral medications 4) Tachycardia- per cardiology management 5) DVT prophylaxis with lovenox Patient with long repeated history of noncompliance and requesting narcotics Subjective Date patient seen: Dec 11, 2017 Time patient seen: 08:36 ROS Limited/Unobtainable: No Allergies: Coded Allergies: No Known Allergies (Verified , 09/16/08) All Systems: reviewed and negative except above Subjective Patient with flat affect and upset because he is requesting narcotics at a higher frequency Objective Last 24 Hour Vital Signs Date Time Temp Pulse Resp B/P (MAP) Pulse Ox O2 Delivery O2 Flow Rate FiO2 12/11/17 07:00 117 14 148/102 (117) 100 12/11/17 06:00 117 14 142/97 (112) 100 12/11/17 05:00 105 14 156/107 (123) 100 12/11/17 04:00 98.0 103 12 164/107 (126) 100 98.0 12/11/17 04:00 Room Air 12/11/17 04:00 102 12/11/17 03:00 107 13 149/103 (118) 100 12/11/17 02:00 118 15 149/101 (117) 100 12/11/17 01:00 140 15 134/92 (106) 100 12/11/17 00:00 119 12/11/17 00:00 Room Air 12/11/17 00:00 97.9 132 14 159/97 (117) 100 97.9 12/10/17 23:00 140 15 166/106 (126) 100 12/10/17 22:00 132 13 160/102 (121) 100 12/10/17 21:00 132 13 158/108 (125) 100 12/10/17 20:00 Room Air 12/10/17 20:00 97.5 139 14 150/100 (117) 100 97.5 12/10/17 20:00 143 12/10/17 19:00 134 13 167/109 (128) 100 12/10/17 18:00 137 158/105 (122) 12/10/17 17:42 97.5 12/10/17 17:12 97.5 12/10/17 17:00 144 147/102 (117) 12/10/17 16:00 Room Air 12/10/17 16:00 137 12/10/17 16:00 139 146/96 (113) 12/10/17 16:00 Room Air 12/10/17 15:00 138 148/80 (102) 12/10/17 14:51 97.5 140 18 123/78 100 Room Air 97.5 12/10/17 14:00 140 18 149/88 100 Room Air 12/10/17 14:00 98.7 138 167/100 (122) 98.7 12/10/17 12:15 150 20 123/78 100 Room Air 12/10/17 11:00 97.5 149 14 118/72 100 Room Air 97.5 12/10/17 10:48 97.5 147 14 118/72 100 Room Air 97.5 Intake and Output 12/10/17 12/11/17 19:00 07:00 Intake Total 304.04 ml 2408.56 ml Output Total 1400 ml 425 ml Balance -1095.96 ml 1983.56 ml Intake Oral 200 ml IV Total 304.04 ml 2208.56 ml Output Urine Total 1300 ml 400 ml Emesis 100 ml 25 ml # Voids 5 1 # Bowel Movements 2 Laboratory Tests 12/10/17 11:40: Urine Color Pale yellow, Urine Appearance Clear, Urine pH 5, Urine Specific Clark 1.015, Urine Protein Negative, Urine Glucose (UA) 4+H, Urine Ketones 4+H , Urine Blood Negative, Urine Nitrite Negative, Urine Bilirubin Negative, Urine Urobilinogen Normal, Urine Leukocyte Esterase Negative 12/10/17 11:45: White Blood Count 12.0H, Red Blood Count 6.90H, Hemoglobin 12.6L, Hematocrit 44.6, Mean Corpuscular Volume 65L, Mean Corpuscular Hemoglobin 18.2L, Mean Corpuscular Hemoglobin Concent 28.3L, Red Cell Distribution Width 18.9H, Platelet Count 556H, Mean Platelet Volume 6.8, Neutrophils (%) (Auto) , Lymphocytes (%) (Auto) , Monocytes (%) (Auto) , Eosinophils (%) (Auto) , Basophils (%) (Auto) , Differential Total Cells Counted 100, Neutrophils % ( Manual) 87H, Lymphocytes % (Manual) 8L, Monocytes % (Manual) 2, Eosinophils % ( Manual) 0, Basophils % (Manual) 0, Band Neutrophils 3, Platelet Estimate IncreasedH, Platelet Morphology Normal, Polychromasia Occasional, Hypochromasia 2+, Anisocytosis 2+, Microcytosis 3+, Tear Drop Cells Occasional, Ovalocytes 1+ , [place] Cells 2+, Sodium Level 137, Potassium Level 4.5, Chloride Level 93L, Carbon Dioxide Level 8*L, Anion Gap 36H, Blood Urea Nitrogen 24H, Creatinine 1.7H, Estimat Glomerular Filtration Rate 59.4, Glucose Level 665*H, Calcium Level 10.1, Magnesium Level 2.3, Total Bilirubin 1.5H, Direct Bilirubin 0.3, Aspartate Amino Transf (AST/SGOT) 25, Alanine Aminotransferase (ALT/SGPT) 40, Alkaline Phosphatase 202H, Total Protein 8.8H, Albumin 4.3, Globulin 4.5, Albumin/Globulin Ratio 1.0, Acetone Level Positive-moderate 12/10/17 12:15: Venous Blood pH [Pending], Venous Blood Partial Pressure CO2 [Pending], Venous Blood Partial Pressure O2 [Pending], Venous Blood HCO3 [Pending], Venous Blood Total Carbon Dioxide [Pending], Venous Bld O2 Saturation (Measured) 65.5, Venous Blood Oxygen Saturation [Pending], Venous Blood Base Excess [Pending], Methemoglobin 0.6, Sodium (Blood Gas) [Pending] 12/11/17 05:00: White Blood Count 20.3#H, Red Blood Count 5.92, Hemoglobin 11.0L, Hematocrit 37.2L, Mean Corpuscular Volume 63L, Mean Corpuscular Hemoglobin 18.7L, Mean Corpuscular Hemoglobin Concent 29.7L, Red Cell Distribution Width 18.0H, Platelet Count 442, Mean Platelet Volume 6.7, Neutrophils (%) (Auto) , Lymphocytes (%) (Auto) , Monocytes (%) (Auto) , Eosinophils (%) (Auto) , Basophils (%) (Auto) , Neutrophils % (Manual) [Pending], Lymphocytes % (Manual) [Pending], Platelet Estimate [Pending], Platelet Morphology [Pending], Sodium Level 141, Potassium Level 4.7, Chloride Level 110H, Carbon Dioxide Level 21, Anion Gap 11, Blood Urea Nitrogen 10, Creatinine 1.0, Estimat Glomerular Filtration Rate > 60, Glucose Level 68#L, Calcium Level 8.0#L, Troponin I 0.000 , Thyroid Stimulating Hormone (TSH) 4.303H Height (Feet): 5 Height (Inches): 9.00 Weight (Pounds): 135 General Appearance: no apparent distress EENT: normal ENT inspection Neck: normal alignment, supple Cardiovascular: normal rate, regular rhythm Respiratory/Chest: normal breath sounds, no respiratory distress Abdomen: non tender, soft Edema: no edema noted Arm (L), no edema noted Arm (R), no edema noted Leg (L), no edema noted Leg (R), no edema noted Pedal (L), no edema noted Pedal (R), no edema noted Generalized Phoenix Palomo MD Dec 11, 2017 08:39
[2017-12-11] MEDS ORDERED: traMADol 50mg tab ORAL PRN (08:45)
[2017-12-11] MEDS ORDERED: Metoprolol 25mg tab ORAL SCH (09:00)
--- NOTE | 2017-12-11 10:35 | Consultation ---
Consult Note Consult Note HISTORY OF PRESENT ILLNESS: The patient is a 27-year-old gentleman with multiple admissions for DKA. The patient has known diabetes and was recently discharged from [facility] for similar reason. He now returns to [facility] again with elevated serum glucose of over 600, creatinine 1.7, serum bicarbonate of 8. The patient is requesting narcotics. He is denying any nausea, vomiting, or diarrhea. He has not been taking his medications or following his diabetic diet since his recent discharge from [facility]. ALLERGIES: No known drug allergies. PAST MEDICAL HISTORY: Diabetes mellitus. FAMILY HISTORY: Positive for diabetes. PAST SURGICAL HISTORY: Noncontributory. REVIEW OF SYSTEMS: NEUROLOGIC: The patient denies headache, change in vision, syncope, presyncopal episodes. CARDIOVASCULAR: No current chest pain, palpitations, or angina. PULMONARY: No difficulty breathing, productive cough, or sputum. GASTROINTESTINAL/GENITOURINARY: No change in urinary or bowel habits. No nausea, vomiting, or diarrhea. ENDOCRINOLOGIC: No night sweats, fevers, or chills. LABORATORY DATA: Labs dated December 10, 2017, sodium 137, potassium 4.5, chloride 93, bicarbonate 8, BUN 24, creatinine 1.7, glucose 665, calcium 10.1, magnesium 2.3. Hemoglobin 12.6, white cell count 12, platelet count 556,000. PHYSICAL EXAMINATION: VITAL SIGNS: Blood pressure 129/78, respiratory rate 20, heart rate 150, temperature 97.5. GENERAL: The patient is awake, alert, in no acute distress. HEENT: Extraocular muscles intact. No lymphadenopathy noted. Oropharyngeal mucosa is clear and dry. CARDIOVASCULAR: S1, S2. No rubs or gallops. Tachycardic. ABDOMEN: Nondistended and nontender. EXTREMITIES: No edema noted. ASSESSMENT AND PLAN: 1. DKA. At this time, the patient will be admitted to intensive care unit and started on aggressive hydration and insulin drip following DKA protocol to close anion gap. 2. Tachycardic, heart rate 150, most likely secondary to dehydration. The patient will be given fluid bolus and initiated on fluids. Dr. Vyas to follow and manage. 3. Anion-gap acidosis secondary to DKA. Continue aggressive hydration and correction of underlying DKA. 4. Acute kidney injury secondary to volume depletion from DKA. IV fluids will be initiated and electrolytes will be monitored carefully. The patient has long history of noncompliance of his diabetic medications and repeated hospitalizations for DKA. MD Loc Hinson Omar Syed MD Dec 11, 2017 10:35
[2017-12-11] MEDS ORDERED: NovoLOG Insulin Flexpen SUBQ SCH (11:30)
--- NOTE | 2017-12-11 13:38 | Infectious Diseases Prog Note ---
Assessment/Plan Problems: (1) Sepsis Assessment & Plan: with leukocytosis, source unclear, will send blood culture and order CXR to rule out pneumonia , will start him on vancomycin and cefepime empirically pending cultures (2) Diabetic ketoacidosis associated with type 1 diabetes mellitus Assessment & Plan: due non compliance, improving with insulin drip , continue tight glycemic control to keep blood glucose between 80-120 (3) Dehydration Assessment & Plan: due to poor oral intake, continue IVF (4) Abdominal pain Assessment & Plan: due to the above, continue supportive care (5) medication non-compliance Assessment & Plan: patient was counseled (6) NATALIE (acute kidney injury) Assessment & Plan: due to dehydration, continue IVF , renally dosed medications , monitor UOP Subjective Allergies: Coded Allergies: No Known Allergies (Verified , 09/16/08) Objective Vital Signs Last 24 Hour Vital Signs Date Time Temp Pulse Resp B/P (MAP) Pulse Ox O2 Delivery O2 Flow Rate FiO2 12/11/17 11:00 82 11 139/99 (112) 12/11/17 10:41 88 11 130/83 (99) 12/11/17 10:35 98.0 12/11/17 10:05 98.0 12/11/17 10:00 93 12 138/85 (102) 12/11/17 09:44 106 13 151/96 (114) 12/11/17 09:18 117 148/102 12/11/17 09:00 117 13 179/106 (130) 81 12/11/17 08:53 116 21 181/99 (126) 82 12/11/17 08:11 108 19 174/110 (131) 12/11/17 08:00 Room Air 12/11/17 08:00 97.7 96 13 154/107 (123) 100 97.7 12/11/17 07:00 117 14 148/102 (117) 100 12/11/17 06:00 117 14 142/97 (112) 100 12/11/17 05:00 105 14 156/107 (123) 100 12/11/17 04:00 98.0 103 12 164/107 (126) 100 98.0 12/11/17 04:00 Room Air 12/11/17 04:00 102 12/11/17 03:00 107 13 149/103 (118) 100 12/11/17 02:00 118 15 149/101 (117) 100 12/11/17 01:00 140 15 134/92 (106) 100 12/11/17 00:00 119 12/11/17 00:00 Room Air 12/11/17 00:00 97.9 132 14 159/97 (117) 100 97.9 12/10/17 23:00 140 15 166/106 (126) 100 12/10/17 22:00 132 13 160/102 (121) 100 12/10/17 21:00 132 13 158/108 (125) 100 12/10/17 20:00 Room Air 12/10/17 20:00 97.5 139 14 150/100 (117) 100 97.5 12/10/17 20:00 143 12/10/17 19:00 134 13 167/109 (128) 100 12/10/17 18:00 137 158/105 (122) 12/10/17 17:42 97.5 12/10/17 17:12 97.5 12/10/17 17:00 144 147/102 (117) 12/10/17 16:00 Room Air 12/10/17 16:00 137 12/10/17 16:00 139 146/96 (113) 12/10/17 16:00 Room Air 12/10/17 15:00 138 148/80 (102) 12/10/17 14:51 97.5 140 18 123/78 100 Room Air 97.5 12/10/17 14:00 140 18 149/88 100 Room Air 12/10/17 14:00 98.7 138 167/100 (122) 98.7 Height (Feet): 5 Height (Inches): 9.00 Weight (Pounds): 135 Microbiology Date/Time Source Procedure Growth Status 12/10/17 11:50 Rectum Received Laboratory Tests Test 12/11/17 05:00 White Blood Count 20.3 K/UL (4.8-10.8) #H Red Blood Count 5.92 M/UL (4.70-6.10) Hemoglobin 11.0 G/DL (14.2-18.0) L Hematocrit 37.2 % (42.0-52.0) L Mean Corpuscular Volume 63 FL (80-99) L Mean Corpuscular Hemoglobin 18.7 PG (27.0-31.0) L Mean Corpuscular Hemoglobin Concent 29.7 G/DL (32.0-36.0) L Red Cell Distribution Width 18.0 % (11.6-14.8) H Platelet Count 442 K/UL (150-450) Mean Platelet Volume 6.7 FL (6.5-10.1) Neutrophils (%) (Auto) % (45.0-75.0) Lymphocytes (%) (Auto) % (20.0-45.0) Monocytes (%) (Auto) % (1.0-10.0) Eosinophils (%) (Auto) % (0.0-3.0) Basophils (%) (Auto) % (0.0-2.0) Differential Total Cells Counted 100 Neutrophils % (Manual) 79 % (45-75) H Lymphocytes % (Manual) 17 % (20-45) L Monocytes % (Manual) 3 % (1-10) Eosinophils % (Manual) 1 % (0-3) Basophils % (Manual) 0 % (0-2) Band Neutrophils 0 % (0-8) Platelet Estimate Adequate Platelet Morphology Normal Hypochromasia 1+ Anisocytosis 3+ Microcytosis 2+ Sodium Level 141 MMOL/L (136-145) Potassium Level 4.7 MMOL/L (3.5-5.1) Chloride Level 110 MMOL/L (98-107) H Carbon Dioxide Level 21 MMOL/L (21-32) Anion Gap 11 mmol/L (5-15) Blood Urea Nitrogen 10 mg/dL (7-18) Creatinine 1.0 MG/DL (0.55-1.30) Estimat Glomerular Filtration Rate > 60 mL/min (>60) Glucose Level 68 MG/DL (74-106) #L Calcium Level 8.0 MG/DL (8.5-10.1) #L Troponin I 0.000 ng/mL (0.000-0.056) Thyroid Stimulating Hormone (TSH) 4.303 uiU/mL (0.358-3.740) Current Medications Medications (Trade) Dose Ordered Sig/Carlos Route PRN Reason Start Time Stop Time Status Last Admin Dose Admin Clonidine HCl (Catapres Tab) 0.1 mg Q6H PRN ORAL For systolic bp over 160 12/11/17 10:01 01/10/18 10:00 Dextrose (Dextrose 50%) 25 ml Q30M PRN IV Hypoglycemia 12/11/17 08:30 01/10/18 08:29 Dextrose (Dextrose 50%) 50 ml Q30M PRN IV Hypoglycemia 12/11/17 08:30 01/10/18 08:29 Enoxaparin Sodium (Lovenox) 30 mg Q24H SUBQ 12/10/17 15:00 01/09/18 14:59 12/10/17 17:17 Famotidine (Pepcid) 20 mg DAILY ORAL 12/11/17 09:00 01/10/18 08:59 12/11/17 09:18 Insulin Aspart (NovoLOG) BEFORE MEALS AND HS SUBQ 12/11/17 11:30 01/10/18 11:29 Insulin Human Regular (NovoLIN R) 5 units PRN PRN IV BS 200-299 12/10/17 13:30 01/09/18 13:29 12/10/17 19:21 Insulin Human Regular (NovoLIN R) 10 units PRN PRN IV BS=>300 12/10/17 13:30 01/09/18 13:29 12/10/17 16:41 Metoprolol Tartrate (Lopressor) 25 mg Q12HR ORAL 12/11/17 09:00 01/10/18 08:59 12/11/17 09:18 Ondansetron HCl (Zofran) 4 mg Q6H PRN IVP Nausea & Vomiting 12/10/17 13:30 01/09/18 13:29 12/10/17 20:59 Sodium Chloride 1,000 ml @ 100 mls/hr Q10H IV 12/11/17 08:45 01/10/18 08:44 12/11/17 09:19 Tramadol HCl (Ultram) 50 mg Q6H PRN ORAL For Pain 12/11/17 08:45 12/18/17 08:44 12/11/17 10:05 Michael Irwin M.D. Dec 11, 2017 13:38
[2017-12-11] MEDS ORDERED: Enoxaparin 40mg Inj SUBQ SCH (15:00)
[2017-12-11] MEDS ORDERED: Cefepime HCl 2 GM in NS 55 ML IVPB SCH (15:00)
[2017-12-11] MEDS ORDERED: Vancomycin 1gm/D5W 275ml IVPB SCH ×2 (15:30)
[2017-12-11] MEDS ORDERED: Insulin Human Regular 100units/ml 3ml IV PRN ×2 (16:00)
[2017-12-11] MEDS: NovoLOG Insulin Flexpen SUBQ SCH ×2 (17:09→20:34)
[2017-12-11] MEDS: traMADol 50mg tab ORAL PRN (17:13)
--- NOTE | 2017-12-11 18:00 | Consultation ---
DATE OF CONSULTATION: 12/11/2017 INFECTIOUS DISEASE CONSULTATION CONSULTING PHYSICIAN: Michael Irwin M.D. REQUESTING PHYSICIAN: Phoenix Palomo M.D. REASON FOR CONSULTATION: Sepsis with leukocytosis. Recommendation for antibiotics treatment. HISTORY OF PRESENT ILLNESS: The patient is a 27-year-old male with past medical history of diabetes mellitus type 1 and DKA due to noncompliance, who presented to [facility] Emergency Room with increased weakness associated with abdominal pain and nausea. The patient was recently hospitalized at [facility] for the same scenario and was recently discharged. The patient was found to have elevated blood sugar in the emergency room suggestive of diabetic ketoacidosis. He was extremely dehydrated. He was started on IV fluid hydration and insulin drip, and was admitted to the intensive care unit for further evaluation and management. Today, his white count went up to 20,000 with no explanation, so Infectious Disease consultation was requested for further evaluation and antibiotics management. The patient denied any fever or chills. No headache or blurry vision. No sore throat, runny nose, or earache. No cough or phlegm. No diarrhea. No urinary symptoms. No joint pain or swelling. REVIEW OF SYSTEMS: Fourteen points of system reviewed were all negative apart from the one I mentioned above in my History and Physical. PAST MEDICAL HISTORY: Significant for diabetes mellitus type 1, DKA, and GERD. PAST SURGICAL HISTORY: Negative. FAMILY HISTORY: Positive for diabetes. Negative for recurrent infection. SOCIAL HISTORY: The patient lives at home with family. Denied using any drugs, tobacco, or alcohol. ALLERGIES: No known drug allergy. MEDICATIONS: The patient on insulin aspart, clonidine, Pepcid, Lopressor, Ultram, Lovenox, Zofran, Novolin. PHYSICAL EXAMINATION: VITAL SIGNS: Temperature 98, pulse 88, respiration 11, blood pressure 130/83, saturation 100% on room air. GENERAL: Young male, up in bed, awake, alert, oriented x3, not in acute distress. HEENT: Normocephalic and atraumatic. Pupils are reactive to light equally. Moist oral mucosa. No exudate or thrush. NECK: Supple. No lymphadenopathy. CARDIOVASCULAR: Regular rate and rhythm. No murmur or gallop. LUNGS: Clear bilaterally. No wheezing. No rhonchi. Normal breathing efforts. ABDOMEN: Soft, nontender, nondistended. Normal bowel sounds. No hepatosplenomegaly or ascites. EXTREMITIES: No edema or cyanosis. LABORATORY DATA: Showed white count of 20,300, hemoglobin of 11, platelet count of 442,000. BUN of 10, creatinine of 1. Blood glucose now of 68 and initially was 665. Hemoglobin A1c of 10.9. IMAGING: None done during this admission. ASSESSMENT AND RECOMMENDATION: 1. Sepsis with leukocytosis, source unclear at this point. We will send blood culture and order chest x-ray to rule out pneumonia. We will start him on vancomycin and cefepime empiric coverage pending blood cultures and chest x-ray. 2. Diabetic ketoacidosis associated with type 1 diabetes mellitus due to noncompliance, improving with insulin drip. Continue tight glycemic control to keep blood glucose between 80-120. 3. Dehydration due to poor oral intake. Continue IV fluid for hydration. Monitor electrolytes. 4. Abdominal pain due to the above. Continue supportive care. 5. Medication noncompliance. The patient was counseled regarding compliance. 6. Acute kidney failure due to dehydration and sepsis. Continue fluid. Avoid nephrotoxic. Renally dose medicine. Thank you for the consult. ID will continue to follow. Please feel free to call with any question. Michael Irwin M.D. DR: Flaco JOB#: [id number] CC:
[2017-12-11] MEDS: Metoprolol 25mg tab ORAL SCH (20:31)
[2017-12-12] VITALS: BP 127/80
[2017-12-12] MEDS: Cefepime HCl 2 GM in NS 55 ML IVPB SCH ×2 (02:23→14:55)
[2017-12-12] MEDS ORDERED: Vancomycin 1 GM in D5W 275 ML IVPB SCH (03:30)
[2017-12-12 04:00] VITALS: BP 148/106
[2017-12-12] MEDS: traMADol 50mg tab ORAL PRN ×2 (04:04→17:16)
[2017-12-12] MEDS: NovoLOG Insulin Flexpen SUBQ SCH ×5 (05:57→20:51)
[2017-12-12 08:00] VITALS: BP 141/95
--- NOTE | 2017-12-12 08:00 | Nephrology Progress Note ---
Assessment/Plan Assessment/Plan A/P 1) DKA- resolved - low carb diet, insulin SS with Novolog and levemir - Case Manger consult for DC with HH 2) Leukocytosis- afebrile, stress/DKA per ID - Abx per ID 3) HTN- Lopressor 4) Tachycardia- per cardiology management 5) DVT prophylaxis with lovenox Patient with long repeated history of noncompliance and requesting narcotics Tx to [facility] [place] Subjective Date patient seen: Dec 12, 2017 Time patient seen: 07:58 ROS Limited/Unobtainable: No Constitutional: Reports: weakness Allergies: Coded Allergies: No Known Allergies (Verified , 09/16/08) Subjective Patient improved Objective Last 24 Hour Vital Signs Date Time Temp Pulse Resp B/P (MAP) Pulse Ox O2 Delivery O2 Flow Rate FiO2 12/12/17 04:00 97.8 80 18 148/106 (120) 100 97.8 12/12/17 03:32 74 12/12/17 00:00 98.0 78 18 127/80 (96) 100 98.0 12/11/17 23:27 75 12/11/17 21:00 Room Air 12/11/17 20:31 87 129/88 12/11/17 20:09 83 12/11/17 20:00 97.6 87 18 129/88 (102) 100 97.6 12/11/17 17:43 97.5 12/11/17 16:00 76 12/11/17 16:00 Room Air 12/11/17 16:00 97.5 85 21 152/98 (116) 99 97.5 12/11/17 15:00 82 10 143/103 (116) 12/11/17 14:54 156/109 12/11/17 14:42 82 10 156/109 (125) 12/11/17 14:27 84 12 163/108 (126) 12/11/17 14:15 83 11 148/109 (122) 12/11/17 14:01 90 17 163/113 (130) 12/11/17 13:01 80 23 149/107 (121) 12/11/17 12:00 76 12/11/17 12:00 81 12 149/104 (119) 12/11/17 12:00 Room Air 12/11/17 11:00 82 11 139/99 (112) 12/11/17 10:41 88 11 130/83 (99) 12/11/17 10:35 98.0 12/11/17 10:05 98.0 12/11/17 10:00 93 12 138/85 (102) 12/11/17 09:44 106 13 151/96 (114) 12/11/17 09:18 117 148/102 12/11/17 09:00 117 13 179/106 (130) 81 12/11/17 08:53 116 21 181/99 (126) 82 12/11/17 08:11 108 19 174/110 (131) 12/11/17 08:00 Room Air 12/11/17 08:00 97.7 96 13 154/107 (123) 100 97.7 12/11/17 08:00 83 Intake and Output 12/11/17 12/12/17 19:00 07:00 Intake Total 670 ml 1917.416 ml Output Total 775 ml Balance 670 ml 1142.416 ml Intake Oral 570 ml 240 ml IV Total 100 ml 1677.416 ml Output Urine Total 775 ml Height (Feet): 5 Height (Inches): 9.00 Weight (Pounds): 135 General Appearance: no apparent distress, alert EENT: normal ENT inspection Neck: normal alignment, supple Cardiovascular: normal rate, regular rhythm Respiratory/Chest: lungs clear, normal breath sounds Abdomen: non tender, soft Edema: no edema noted Arm (L), no edema noted Arm (R), no edema noted Leg (L), no edema noted Leg (R), no edema noted Pedal (L), no edema noted Pedal (R), no edema noted Generalized Phoenix Palomo MD Dec 12, 2017 08:00
[2017-12-12] MEDS: Metoprolol 25mg tab ORAL SCH ×2 (08:54→20:46)
--- NOTE | 2017-12-12 09:34 | Pulmonology Progress Note ---
Assessment/Plan Assessment/Plan ASSESSMENT AND PLAN: 1. DKA. Resolved. 2. Tachycardic, improved. 3. Anion-gap acidosis secondary to DKA. 4. Acute kidney injury secondary to volume depletion from DKA. IV fluids will be initiated and electrolytes will be monitored carefully. The patient has long history of noncompliance of his diabetic medications and repeated hospitalizations for DKA. Subjective Interval Events: Doing well Constitutional: Reports: no symptoms HEENT: Repors: no symptoms Respiratory: Reports: no symptoms Cardiovascular: Reports: no symptoms Gastrointestinal/Abdominal: Reports: no symptoms Allergies: Coded Allergies: No Known Allergies (Verified , 09/16/08) Objective Last 24 Hour Vital Signs Date Time Temp Pulse Resp B/P (MAP) Pulse Ox O2 Delivery O2 Flow Rate FiO2 12/12/17 08:54 83 141/95 12/12/17 08:00 97.6 83 18 141/95 (110) 100 97.6 12/12/17 04:00 97.8 80 18 148/106 (120) 100 97.8 12/12/17 03:32 74 12/12/17 00:00 98.0 78 18 127/80 (96) 100 98.0 12/11/17 23:27 75 12/11/17 21:00 Room Air 12/11/17 20:31 87 129/88 12/11/17 20:09 83 12/11/17 20:00 97.6 87 18 129/88 (102) 100 97.6 12/11/17 17:43 97.5 12/11/17 16:00 76 12/11/17 16:00 Room Air 12/11/17 16:00 97.5 85 21 152/98 (116) 99 97.5 12/11/17 15:00 82 10 143/103 (116) 12/11/17 14:54 156/109 12/11/17 14:42 82 10 156/109 (125) 12/11/17 14:27 84 12 163/108 (126) 12/11/17 14:15 83 11 148/109 (122) 12/11/17 14:01 90 17 163/113 (130) 12/11/17 13:01 80 23 149/107 (121) 12/11/17 12:00 76 12/11/17 12:00 81 12 149/104 (119) 12/11/17 12:00 Room Air 12/11/17 11:00 82 11 139/99 (112) 12/11/17 10:41 88 11 130/83 (99) 12/11/17 10:35 98.0 12/11/17 10:05 98.0 12/11/17 10:00 93 12 138/85 (102) 12/11/17 09:44 106 13 151/96 (114) Intake and Output 12/11/17 12/12/17 19:00 07:00 Intake Total 670 ml 1917.416 ml Output Total 775 ml Balance 670 ml 1142.416 ml Intake Oral 570 ml 240 ml IV Total 100 ml 1677.416 ml Output Urine Total 775 ml General Appearance: no acute distress HEENT: normocephalic Respiratory/Chest: chest wall non-tender, lungs clear Cardiovascular: normal peripheral pulses, normal rate Abdomen: normal bowel sounds Microbiology Date/Time Source Procedure Growth Status 12/10/17 11:50 Nasal Nares MRSA Culture - Final NO METHICILLIN RESISTANT STAPH AUREUS... Complete 12/10/17 11:50 Rectum VRE Culture - Final NO VANCOMYCIN RESISTANT ENTEROCOCCUS ... Complete Current Medications Medications (Trade) Dose Ordered Sig/Carlos Route PRN Reason Start Time Stop Time Status Last Admin Dose Admin Cefepime HCl 2 gm/ Sodium Chloride 55 ml @ 110 mls/hr Q12H IVPB 12/12/17 03:00 12/18/17 14:59 12/12/17 02:23 Clonidine HCl (Catapres Tab) 0.1 mg Q6H PRN ORAL For systolic bp over 160 12/11/17 21:00 01/10/18 20:59 Dextrose (Dextrose 50%) 25 ml Q30M PRN IV Hypoglycemia 12/11/17 16:00 01/10/18 08:29 Dextrose (Dextrose 50%) 50 ml Q30M PRN IV Hypoglycemia 12/11/17 16:00 01/10/18 08:29 Enoxaparin Sodium (Lovenox) 40 mg Q24H SUBQ 12/12/17 15:00 01/10/18 14:59 Famotidine (Pepcid) 20 mg DAILY ORAL 12/12/17 09:00 01/10/18 08:59 12/12/17 08:53 Insulin Aspart (NovoLOG) BEFORE MEALS AND HS SUBQ 12/11/17 16:30 01/10/18 11:29 12/12/17 05:57 Insulin Aspart (NovoLOG) 6 units NOVOTIAC SUBQ 12/12/17 11:50 01/11/18 11:49 Insulin Detemir (Levemir) 20 units BEDTIME SUBQ 12/12/17 21:00 01/11/18 20:59 Metoprolol Tartrate (Lopressor) 25 mg Q12HR ORAL 12/11/17 21:00 01/10/18 08:59 12/12/17 08:54 Ondansetron HCl (Zofran) 4 mg Q6H PRN IVP Nausea & Vomiting 12/11/17 21:00 01/09/18 20:59 12/12/17 08:54 Sodium Chloride 1,000 ml @ 100 mls/hr Q10H IV 12/11/17 16:00 01/10/18 08:44 12/12/17 02:22 Tramadol HCl (Ultram) 50 mg Q6H PRN ORAL For Pain 12/11/17 16:00 12/18/17 15:59 12/12/17 04:04 Vancomycin HCl (Vanco rx to dose) 1 ea DAILY PRN MISC Per rx protocol 12/12/17 09:00 01/10/18 13:44 Vancomycin HCl 1 gm/Sodium Chloride 275 ml @ 183.708 mls/hr Q12H IVPB 12/12/17 15:30 12/16/17 15:29 Broderick Monterroso MD Dec 12, 2017 09:34
[2017-12-12 10:16] LABS: BASOPHILS % (AUTO) 1.8 % (0.0-2.0); EOSINOPHILS % (AUTO) 0.1 % (0.0-3.0); HEMATOCRIT 34.1 % (42.0-52.0); HEMOGLOBIN 10.3 G/DL (14.2-18.0); MEAN CORPUSCULAR VOLUME 63 FL (80-99); MONOCYTES % (AUTO) 5.6 % (1.0-10.0); NEUTROPHILS % (AUTO) 80.5 % (45.0-75.0); PLATELET COUNT 381 K/UL (150-450); RED BLOOD COUNT 5.45 M/UL (4.70-6.10); RED CELL DISTRIBUTION WIDTH 18.6 % (11.6-14.8); WHITE BLOOD COUNT 8.2 K/UL (4.8-10.8)
[2017-12-12 10:32] LABS: ANION GAP 10 mmol/L (5-15); BLOOD UREA NITROGEN 2 mg/dL (7-18); CALCIUM 8.6 MG/DL (8.5-10.1); CARBON DIOXIDE 25 MMOL/L (21-32); CHLORIDE 100 MMOL/L (98-107); CREATININE 0.9 MG/DL (0.55-1.30); POTASSIUM 3.6 MMOL/L (3.5-5.1); SODIUM 135 MMOL/L (136-145)
--- NOTE | 2017-12-12 11:02 | Cardiology Progress Note ---
Assessment/Plan Status: stable Assessment/Plan Assessment: 1. Tachycardia. The heart rate even though is 150, it is truly sinus tachycardia with no evidence of atrial fibrillation or atrial flutter or any other tachyarrhythmias. Echo pending2013 LVEF was normal. Currently heart rate normal. 2. DKA. Resolved. Medication non compliace 3. Acute kidney injury secondary to volume depletion from DKA. s/p IV fluids, resolving 4. Hypertension On Lopressor Add low dose lisinopril 2.5 mg Subjective Cardiovascular: Reports: no symptoms Respiratory: Reports: no symptoms Gastrointestinal/Abdominal: Reports: no symptoms Genitourinary: Reports: no symptoms Subjective COVERAGE FOR [employer] Tachycardia resolved, no acute distress, no CP/SOB. Patient in bed, alert, awake , and verbally responsive. In room air, no SOB. Respirations are even and unlabored Objective Last 24 Hour Vital Signs Date Time Temp Pulse Resp B/P (MAP) Pulse Ox O2 Delivery O2 Flow Rate FiO2 12/12/17 09:00 Room Air 12/12/17 08:54 83 141/95 12/12/17 08:00 97.6 83 18 141/95 (110) 100 97.6 12/12/17 08:00 80 12/12/17 04:00 97.8 80 18 148/106 (120) 100 97.8 12/12/17 03:32 74 12/12/17 00:00 98.0 78 18 127/80 (96) 100 98.0 12/11/17 23:27 75 12/11/17 21:00 Room Air 12/11/17 20:31 87 129/88 12/11/17 20:09 83 12/11/17 20:00 97.6 87 18 129/88 (102) 100 97.6 12/11/17 17:43 97.5 12/11/17 16:00 76 12/11/17 16:00 Room Air 12/11/17 16:00 97.5 85 21 152/98 (116) 99 97.5 12/11/17 15:00 82 10 143/103 (116) 12/11/17 14:54 156/109 12/11/17 14:42 82 10 156/109 (125) 12/11/17 14:27 84 12 163/108 (126) 12/11/17 14:15 83 11 148/109 (122) 12/11/17 14:01 90 17 163/113 (130) 12/11/17 13:01 80 23 149/107 (121) 12/11/17 12:00 76 12/11/17 12:00 81 12 149/104 (119) 12/11/17 12:00 Room Air 12/11/17 11:00 82 11 139/99 (112) General Appearance: no apparent distress, alert EENT: PERRL/EOMI, normal ENT inspection Neck: non-tender, normal alignment, supple, normal inspection, no JVD Rhythm: NSR Cardiovascular: normal peripheral pulses, normal rate, regular rhythm Respiratory/Chest: chest wall non-tender, lungs clear, normal breath sounds Abdomen: normal bowel sounds, non tender, soft, no organomegaly, no mass Extremities: normal range of motion, non-tender, normal inspection Neurologic: die developer II-XII grossly normal, no motor/sensory deficits Intake and Output 12/11/17 12/12/17 19:00 07:00 Intake Total 670 ml 1917.416 ml Output Total 775 ml Balance 670 ml 1142.416 ml Intake Oral 570 ml 240 ml IV Total 100 ml 1677.416 ml Output Urine Total 775 ml Laboratory Tests Test 12/12/17 09:15 White Blood Count 8.2 K/UL (4.8-10.8) # Red Blood Count 5.45 M/UL (4.70-6.10) Hemoglobin 10.3 G/DL (14.2-18.0) L Hematocrit 34.1 % (42.0-52.0) L Mean Corpuscular Volume 63 FL (80-99) L Mean Corpuscular Hemoglobin 18.9 PG (27.0-31.0) L Mean Corpuscular Hemoglobin Concent 30.1 G/DL (32.0-36.0) L Red Cell Distribution Width 18.6 % (11.6-14.8) H Platelet Count 381 K/UL (150-450) Mean Platelet Volume 6.9 FL (6.5-10.1) Neutrophils (%) (Auto) 80.5 % (45.0-75.0) H Lymphocytes (%) (Auto) 12.0 % (20.0-45.0) L Monocytes (%) (Auto) 5.6 % (1.0-10.0) Eosinophils (%) (Auto) 0.1 % (0.0-3.0) Basophils (%) (Auto) 1.8 % (0.0-2.0) Sodium Level 135 MMOL/L (136-145) L Potassium Level 3.6 MMOL/L (3.5-5.1) Chloride Level 100 MMOL/L (98-107) Carbon Dioxide Level 25 MMOL/L (21-32) Anion Gap 10 mmol/L (5-15) Blood Urea Nitrogen 2 mg/dL (7-18) L Creatinine 0.9 MG/DL (0.55-1.30) Estimat Glomerular Filtration Rate > 60 mL/min (>60) Glucose Level 209 MG/DL (74-106) #H Calcium Level 8.6 MG/DL (8.5-10.1) Microbiology Date/Time Source Procedure Growth Status 12/10/17 11:50 Nasal Nares MRSA Culture - Final NO METHICILLIN RESISTANT STAPH AUREUS... Complete 12/10/17 11:50 Rectum - Final NO CARBAPENEM-RESISTANT ENTEROBACTERI... Complete 12/10/17 11:50 Rectum VRE Culture - Final NO VANCOMYCIN RESISTANT ENTEROCOCCUS ... Complete Camilo Cabrera MD Dec 12, 2017 11:02
--- NOTE | 2017-12-12 11:12 | Cardiology Report ---
APPROVED REPORT EXAM: Two-dimensional and M-mode echocardiogram with Doppler and color Doppler. INDICATION Tachycardia M-Mode DIMENSIONS IVSd0.8 (0.7-1.1cm)Left Atrium (MM)3.4 (1.6-4.0cm) LVDd4.1 (3.5-5.6cm)Aortic Root2.8 (2.0-3.7cm) PWd0.9 (0.7-1.1cm)Aortic Cusp Exc.2.0 (1.5-2.0cm) LVDs1.9 (2.5-4.0cm) PWs1.9 cm Normal left ventricular chamber size, systolic function and wall motion. Left ventricular ejection fraction estimated to be 65 %. No evidence of left ventricular hypertrophy. No evidence of pericardial effusion. All other cardiac chamber sizes are within normal limits. Normal appearing aortic, pulmonic and tricuspid valves. Mildly thickened mitral valve leaflets with normal excursion. Mild mitral annulus and aortic root calcification. IVC measures at 1.8 cm with physiological collapse. A color flow and spectral Doppler study was performed and revealed: No aortic insufficiency. No mitral regurgitation. Normal left ventricular diastolic function. Trace tricuspid regurgitation. Tricuspid systolic velocities suggests peak right ventricular systolic pressure of 12 mmHg. No pulmonic regurgitation present.
--- NOTE | 2017-12-12 11:26 | Diagnostic Imaging Report ---
Indication: Cough Comparison: 10/12/2013 A single view chest radiograph was obtained. Findings: Cardiomediastinal appearance is within normal limits for age. The lungs are clear. Pulmonary vascularity is appropriate. The diaphragmatic contour is smooth and costophrenic angles are sharp. No pleural effusions are identified. The bones are unremarkable. Impression: No acute findings
[2017-12-12] MEDS ORDERED: NovoLOG Insulin Flexpen SUBQ SCH (11:50)
[2017-12-12 12:00] VITALS: BP 132/95
[2017-12-12] MEDS ORDERED: Enoxaparin 40mg Inj SUBQ SCH (15:00)
[2017-12-12] MEDS ORDERED: Vancomycin 1 GM in NS 275 ML IVPB SCH (15:30)
[2017-12-12 16:00] VITALS: BP 121/80
--- NOTE | 2017-12-12 17:05 | Infectious Diseases Prog Note ---
Assessment/Plan Problems: (1) Sepsis Assessment & Plan: with leukocytosis, source unclear, await blood culture , CXR ruled out pneumonia , continue vancomycin and cefepime empirically pending blood cultures (2) Diabetic ketoacidosis associated with type 1 diabetes mellitus Assessment & Plan: due non compliance, improving with insulin drip , continue tight glycemic control to keep blood glucose between 80-120 (3) Dehydration Assessment & Plan: due to poor oral intake, continue IVF (4) medication non-compliance Assessment & Plan: patient was counseled (5) NATALIE (acute kidney injury) Assessment & Plan: due to dehydration, continue IVF , renally dosed medications , monitor UOP Subjective Constitutional: Reports: no symptoms HEENT: Reports: no symptoms Respiratory: Reports: no symptoms Breasts: Reports: no symptoms Cardiovascular: Reports: no symptoms Gastrointestinal/Abdominal: Reports: bloating, other - pain Genitourinary: Reports: no symptoms Neurologic: Reports: no symptoms Psychiatric: Reports: no symptoms Skin: Reports: no symptoms Endocrine: Reports: no symptoms Hematologic: Reports: no symptoms Musculoskeletal: Reports: no symptoms Allergies: Coded Allergies: No Known Allergies (Verified , 09/16/08) Objective Vital Signs Last 24 Hour Vital Signs Date Time Temp Pulse Resp B/P (MAP) Pulse Ox O2 Delivery O2 Flow Rate FiO2 12/12/17 16:00 98.5 71 18 121/80 (94) 100 98.5 12/12/17 12:00 97.3 84 18 132/95 (107) 100 97.3 12/12/17 09:00 Room Air 12/12/17 08:54 83 141/95 12/12/17 08:00 97.6 83 18 141/95 (110) 100 97.6 12/12/17 08:00 80 12/12/17 04:00 97.8 80 18 148/106 (120) 100 97.8 12/12/17 03:32 74 12/12/17 00:00 98.0 78 18 127/80 (96) 100 98.0 12/11/17 23:27 75 12/11/17 21:00 Room Air 12/11/17 20:31 87 129/88 12/11/17 20:09 83 12/11/17 20:00 97.6 87 18 129/88 (102) 100 97.6 12/11/17 17:43 97.5 Height (Feet): 5 Height (Inches): 9.00 Weight (Pounds): 135 General Appearance: WD/WN, no acute distress HEENT: normocephalic, atraumatic, anicteric, mucous membranes moist, PERRL, EOMI, pharynx normal, supple, no JVD Respiratory/Chest: chest wall non-tender, lungs clear, normal breath sounds, no respiratory distress, no accessory muscle use Breasts: no masses Cardiovascular: normal peripheral pulses, normal rate, regular rhythm, no gallop/murmur, no JVD Abdomen: normal bowel sounds, soft, non tender, no organomegaly, non distended , no mass, no scars Genitourinary: normal external genitalia Extremities: no cyanosis, no clubbing Skin: no rash, no lesions, no ulcers Neurologic/Psychiatric: alert, oriented x 3, responsive Lymphatic: no neck adenopathy, no groin adenopathy Musculoskeletal: normal muscle bulk, no effusion Microbiology Date/Time Source Procedure Growth Status 12/10/17 11:50 Nasal Nares MRSA Culture - Final NO METHICILLIN RESISTANT STAPH AUREUS... Complete 12/10/17 11:50 Rectum - Final NO CARBAPENEM-RESISTANT ENTEROBACTERI... Complete 12/10/17 11:50 Rectum VRE Culture - Final NO VANCOMYCIN RESISTANT ENTEROCOCCUS ... Complete Laboratory Tests Test 12/12/17 09:15 White Blood Count 8.2 K/UL (4.8-10.8) # Red Blood Count 5.45 M/UL (4.70-6.10) Hemoglobin 10.3 G/DL (14.2-18.0) L Hematocrit 34.1 % (42.0-52.0) L Mean Corpuscular Volume 63 FL (80-99) L Mean Corpuscular Hemoglobin 18.9 PG (27.0-31.0) L Mean Corpuscular Hemoglobin Concent 30.1 G/DL (32.0-36.0) L Red Cell Distribution Width 18.6 % (11.6-14.8) H Platelet Count 381 K/UL (150-450) Mean Platelet Volume 6.9 FL (6.5-10.1) Neutrophils (%) (Auto) 80.5 % (45.0-75.0) H Lymphocytes (%) (Auto) 12.0 % (20.0-45.0) L Monocytes (%) (Auto) 5.6 % (1.0-10.0) Eosinophils (%) (Auto) 0.1 % (0.0-3.0) Basophils (%) (Auto) 1.8 % (0.0-2.0) Sodium Level 135 MMOL/L (136-145) L Potassium Level 3.6 MMOL/L (3.5-5.1) Chloride Level 100 MMOL/L (98-107) Carbon Dioxide Level 25 MMOL/L (21-32) Anion Gap 10 mmol/L (5-15) Blood Urea Nitrogen 2 mg/dL (7-18) L Creatinine 0.9 MG/DL (0.55-1.30) Estimat Glomerular Filtration Rate > 60 mL/min (>60) Glucose Level 209 MG/DL (74-106) #H Calcium Level 8.6 MG/DL (8.5-10.1) Current Medications Medications (Trade) Dose Ordered Sig/Carlos Route PRN Reason Start Time Stop Time Status Last Admin Dose Admin Cefepime HCl 2 gm/ Sodium Chloride 55 ml @ 110 mls/hr Q12H IVPB 12/13/17 03:00 12/18/17 14:59 Clonidine HCl (Catapres Tab) 0.1 mg Q6H PRN ORAL For systolic bp over 160 12/12/17 15:26 01/10/18 15:25 Dextrose (Dextrose 50%) 25 ml Q30M PRN IV Hypoglycemia 12/12/17 15:30 01/10/18 08:29 Dextrose (Dextrose 50%) 50 ml Q30M PRN IV Hypoglycemia 12/12/17 15:30 01/10/18 08:29 Enoxaparin Sodium (Lovenox) 40 mg Q24H SUBQ 12/13/17 15:00 01/10/18 14:59 Famotidine (Pepcid) 20 mg DAILY ORAL 12/13/17 09:00 01/10/18 08:59 Insulin Aspart (NovoLOG) BEFORE MEALS AND HS SUBQ 12/12/17 16:30 01/10/18 11:29 Insulin Aspart (NovoLOG) 6 units NOVOTIAC SUBQ 12/12/17 16:50 01/11/18 11:49 Insulin Detemir (Levemir) 20 units BEDTIME SUBQ 12/12/17 21:00 01/11/18 20:59 Metoprolol Tartrate (Lopressor) 25 mg Q12HR ORAL 12/12/17 21:00 01/10/18 08:59 Ondansetron HCl (Zofran) 4 mg Q6H PRN IVP Nausea & Vomiting 12/12/17 15:28 01/09/18 15:27 Sodium Chloride 1,000 ml @ 100 mls/hr Q10H IV 12/12/17 15:26 01/10/18 15:25 12/12/17 15:37 Tramadol HCl (Ultram) 50 mg Q6H PRN ORAL For Pain 12/12/17 15:28 12/18/17 15:27 Vancomycin HCl (Vanco rx to dose) 1 ea DAILY PRN MISC Per rx protocol 12/13/17 09:00 01/10/18 13:44 Vancomycin HCl 1 gm/Sodium Chloride 275 ml @ 183.708 mls/hr Q12H IVPB 12/13/17 03:30 12/18/17 03:29 Michael Irwin M.D. Dec 12, 2017 17:05
[2017-12-12 19:59] VITALS: BP 126/84
[2017-12-12] MEDS ORDERED: Levemir Flexpen SUBQ SCH ×2 (21:00)
[2017-12-13 00:38] VITALS: BP 129/79
[2017-12-13] MEDS ORDERED: Cefepime HCl 2 GM in NS 55 ML IVPB SCH (03:00)
[2017-12-13] MEDS ORDERED: Vancomycin 1 GM in NS 275 ML IVPB SCH (03:30)
[2017-12-13 04:12] VITALS: BP 132/93
[2017-12-13] MEDS: NovoLOG Insulin Flexpen SUBQ SCH ×7 (05:45→20:35)
[2017-12-13] MEDS: traMADol 50mg tab ORAL PRN (08:24)
[2017-12-13] MEDS: Metoprolol 25mg tab ORAL SCH ×2 (08:25→20:33)
[2017-12-13 08:29] VITALS: BP 140/102
--- NOTE | 2017-12-13 08:43 | Nephrology Progress Note ---
Assessment/Plan Assessment/Plan A/P 1) DKA- resolved - low carb diet, insulin SS with Novolog and levemir started - Case Manger consult for DC with HH - DC home in am 2) Leukocytosis- afebrile, stress/DKA per ID. Resolved. W/U neg thus far - Abx per ID 3) HTN- Lopressor 4) Tachycardia- per cardiology management 5) DVT prophylaxis with lovenox Patient with long repeated history of noncompliance and requesting narcotics DC home in AM Subjective Date patient seen: Dec 13, 2017 Time patient seen: 08:40 ROS Limited/Unobtainable: No Allergies: Coded Allergies: No Known Allergies (Verified , 09/16/08) Subjective Patient much improved. He is concerned about going home Objective Last 24 Hour Vital Signs Date Time Temp Pulse Resp B/P (MAP) Pulse Ox O2 Delivery O2 Flow Rate FiO2 12/13/17 08:29 98.2 102 18 140/102 (115) 100 98.2 12/13/17 08:25 102 140/102 12/13/17 04:12 98.3 96 18 132/93 (106) 100 98.3 12/13/17 00:38 98.4 81 16 129/79 (96) 100 98.4 12/12/17 21:00 Room Air 12/12/17 20:46 86 126/84 12/12/17 19:59 98.3 86 17 126/84 (98) 100 98.3 12/12/17 16:00 98.5 71 18 121/80 (94) 100 98.5 12/12/17 12:00 97.3 84 18 132/95 (107) 100 97.3 12/12/17 09:00 Room Air 12/12/17 08:54 83 141/95 Intake and Output 12/12/17 12/13/17 19:00 07:00 Intake Total 1487 ml 1380 ml Output Total 1400 ml Balance 87 ml 1380 ml Intake Oral 577 ml 480 ml IV Total 910 ml 900 ml Output Urine Total 1400 ml # Voids 5 # Bowel Movements 1 Laboratory Tests 12/12/17 09:15: White Blood Count 8.2#, Red Blood Count 5.45, Hemoglobin 10.3L, Hematocrit 34.1L , Mean Corpuscular Volume 63L, Mean Corpuscular Hemoglobin 18.9L, Mean Corpuscular Hemoglobin Concent 30.1L, Red Cell Distribution Width 18.6H, Platelet Count 381, Mean Platelet Volume 6.9, Neutrophils (%) (Auto) 80.5H, Lymphocytes (%) (Auto) 12.0L, Monocytes (%) (Auto) 5.6, Eosinophils (%) (Auto) 0.1, Basophils (%) (Auto) 1.8, Sodium Level 135L, Potassium Level 3.6, Chloride Level 100, Carbon Dioxide Level 25, Anion Gap 10, Blood Urea Nitrogen 2L, Creatinine 0.9, Estimat Glomerular Filtration Rate > 60, Glucose Level 209#H, Calcium Level 8.6 Height (Feet): 5 Height (Inches): 9.00 Weight (Pounds): 135 General Appearance: no apparent distress, alert EENT: normal ENT inspection Neck: normal alignment, supple Cardiovascular: normal rate, regular rhythm Respiratory/Chest: lungs clear, normal breath sounds Abdomen: non tender, soft Edema: no edema noted Arm (L), no edema noted Arm (R), no edema noted Leg (L), no edema noted Leg (R), no edema noted Pedal (L), no edema noted Pedal (R), no edema noted Generalized Phoenix Palomo MD Dec 13, 2017 08:43
[2017-12-13] MEDS ORDERED: Acetaminophen 500mg (ES) tab ORAL PRN (08:47)
[2017-12-13 09:01] LABS: BASOPHILS % (AUTO) 0.8 % (0.0-2.0); EOSINOPHILS % (AUTO) 0.1 % (0.0-3.0); HEMATOCRIT 35.4 % (42.0-52.0); HEMOGLOBIN 10.3 G/DL (14.2-18.0); LYMPHOCYTES % (AUTO) 15.5 % (20.0-45.0); MEAN CORPUSCULAR VOLUME 63 FL (80-99); MONOCYTES % (AUTO) 6.6 % (1.0-10.0); PLATELET COUNT 267 K/UL (150-450); RED CELL DISTRIBUTION WIDTH 19.2 % (11.6-14.8)
[2017-12-13 09:10] LABS: ANION GAP 11 mmol/L (5-15); BLOOD UREA NITROGEN 6 mg/dL (7-18); CALCIUM 8.4 MG/DL (8.5-10.1); CARBON DIOXIDE 24 MMOL/L (21-32); CHLORIDE 103 MMOL/L (98-107); CREATININE 0.9 MG/DL (0.55-1.30); POTASSIUM 3.8 MMOL/L (3.5-5.1); SODIUM 138 MMOL/L (136-145)
[2017-12-13 12:00] VITALS: BP 132/86
--- NOTE | 2017-12-13 12:08 | Pulmonology Progress Note ---
Assessment/Plan Assessment/Plan ASSESSMENT AND PLAN: 1. DKA. Resolved. 2. Tachycardic, improved. 3. Anion-gap acidosis secondary to DKA. 4. Acute kidney injury secondary to volume depletion from DKA. IV fluids will be initiated and electrolytes will be monitored carefully. The patient has long history of noncompliance of his diabetic medications and repeated hospitalizations for DKA. respiratory status is stable I will sign off Subjective Interval Events: comfortable and afebrile Constitutional: Reports: no symptoms HEENT: Repors: no symptoms Respiratory: Reports: no symptoms Cardiovascular: Reports: no symptoms Allergies: Coded Allergies: No Known Allergies (Verified , 09/16/08) Objective Last 24 Hour Vital Signs Date Time Temp Pulse Resp B/P (MAP) Pulse Ox O2 Delivery O2 Flow Rate FiO2 12/13/17 09:00 Room Air 12/13/17 08:29 98.2 102 18 140/102 (115) 100 98.2 12/13/17 08:25 102 140/102 12/13/17 04:12 98.3 96 18 132/93 (106) 100 98.3 12/13/17 00:38 98.4 81 16 129/79 (96) 100 98.4 12/12/17 21:00 Room Air 12/12/17 20:46 86 126/84 12/12/17 19:59 98.3 86 17 126/84 (98) 100 98.3 12/12/17 16:00 98.5 71 18 121/80 (94) 100 98.5 Intake and Output 12/12/17 12/13/17 19:00 07:00 Intake Total 1487 ml 1380 ml Output Total 1400 ml Balance 87 ml 1380 ml Intake Oral 577 ml 480 ml IV Total 910 ml 900 ml Output Urine Total 1400 ml # Voids 5 # Bowel Movements 1 General Appearance: no acute distress HEENT: normocephalic Respiratory/Chest: chest wall non-tender Cardiovascular: normal peripheral pulses, normal rate Abdomen: normal bowel sounds Microbiology Date/Time Source Procedure Growth Status 12/11/17 16:00 Blood Blood Culture - Preliminary NO GROWTH AFTER 24 HOURS Resulted 12/11/17 15:55 Blood Blood Culture - Preliminary NO GROWTH AFTER 24 HOURS Resulted Laboratory Tests 12/13/17 08:30: White Blood Count 6.0, Red Blood Count 5.60, Hemoglobin 10.3L, Hematocrit 35.4L , Mean Corpuscular Volume 63L, Mean Corpuscular Hemoglobin 18.4L, Mean Corpuscular Hemoglobin Concent 29.0L, Red Cell Distribution Width 19.2H, Platelet Count 267, Mean Platelet Volume 6.0L, Neutrophils (%) (Auto) 77.0H, Lymphocytes (%) (Auto) 15.5L, Monocytes (%) (Auto) 6.6, Eosinophils (%) (Auto) 0.1, Basophils (%) (Auto) 0.8, Sodium Level 138, Potassium Level 3.8, Chloride Level 103, Carbon Dioxide Level 24, Anion Gap 11, Blood Urea Nitrogen 6L, Creatinine 0.9, Estimat Glomerular Filtration Rate > 60, Glucose Level 205H, Calcium Level 8.4L Current Medications Medications (Trade) Dose Ordered Sig/Carlos Route PRN Reason Start Time Stop Time Status Last Admin Dose Admin Acetaminophen (Tylenol) 500 mg Q4H PRN ORAL Mild Pain/Temp > 100.5 12/13/17 08:47 01/12/18 08:46 Cefepime HCl 2 gm/ Sodium Chloride 55 ml @ 110 mls/hr Q12H IVPB 12/13/17 03:00 12/18/17 14:59 12/13/17 03:51 Clonidine HCl (Catapres Tab) 0.1 mg Q6H PRN ORAL For systolic bp over 160 12/12/17 15:26 01/10/18 15:25 Dextrose (Dextrose 50%) 25 ml Q30M PRN IV Hypoglycemia 12/12/17 15:30 01/10/18 08:29 Dextrose (Dextrose 50%) 50 ml Q30M PRN IV Hypoglycemia 12/12/17 15:30 01/10/18 08:29 Enoxaparin Sodium (Lovenox) 40 mg Q24H SUBQ 12/13/17 15:00 01/10/18 14:59 Famotidine (Pepcid) 20 mg DAILY ORAL 12/13/17 09:00 01/10/18 08:59 12/13/17 08:25 Insulin Aspart (NovoLOG) BEFORE MEALS AND HS SUBQ 12/12/17 16:30 01/10/18 11:29 12/13/17 05:45 Insulin Aspart (NovoLOG) 6 units NOVOTIAC SUBQ 12/12/17 16:50 01/11/18 11:49 12/13/17 05:46 Insulin Detemir (Levemir) 20 units BEDTIME SUBQ 12/12/17 21:00 01/11/18 20:59 Metoprolol Tartrate (Lopressor) 25 mg Q12HR ORAL 12/12/17 21:00 01/10/18 08:59 12/13/17 08:25 Ondansetron HCl (Zofran) 4 mg Q6H PRN IVP Nausea & Vomiting 12/12/17 15:28 01/09/18 15:27 12/13/17 06:59 Vancomycin HCl (Vanco rx to dose) 1 ea DAILY PRN MISC Per rx protocol 12/13/17 09:00 01/10/18 13:44 Vancomycin HCl 1 gm/Sodium Chloride 275 ml @ 183.708 mls/hr Q12H IVPB 12/13/17 03:30 12/18/17 03:29 12/13/17 03:52 Broderick Monterroso MD Dec 13, 2017 12:08
[2017-12-13] MEDS ORDERED: Enoxaparin 40mg Inj SUBQ SCH (15:00)
--- NOTE | 2017-12-13 15:49 | Cardiac Electrophysiology PN ---
Assessment/Plan Assessment/Plan 1. Sinus tachycardia up to 15 with no evidence of atrial fibrillation or atrial flutter or any other tachyarrhythmias. Due to diabetic ketoacidosis and likely severe dehydration. Echocardiogram showed Nl EF 65% 2. Diabetes ketoacidosis. Subjective Subjective No events off tele. Objective Last 24 Hour Vital Signs Date Time Temp Pulse Resp B/P (MAP) Pulse Ox O2 Delivery O2 Flow Rate FiO2 12/13/17 12:00 98.0 76 19 132/86 (101) 100 98.0 12/13/17 09:00 Room Air 12/13/17 08:29 98.2 102 18 140/102 (115) 100 98.2 12/13/17 08:25 102 140/102 12/13/17 04:12 98.3 96 18 132/93 (106) 100 98.3 12/13/17 00:38 98.4 81 16 129/79 (96) 100 98.4 12/12/17 21:00 Room Air 12/12/17 20:46 86 126/84 12/12/17 19:59 98.3 86 17 126/84 (98) 100 98.3 12/12/17 16:00 98.5 71 18 121/80 (94) 100 98.5 Intake and Output 12/12/17 12/13/17 19:00 07:00 Intake Total 1487 ml 1380 ml Output Total 1400 ml Balance 87 ml 1380 ml Intake Oral 577 ml 480 ml IV Total 910 ml 900 ml Output Urine Total 1400 ml # Voids 5 # Bowel Movements 1 Laboratory Tests Test 12/13/17 08:30 White Blood Count 6.0 K/UL (4.8-10.8) Red Blood Count 5.60 M/UL (4.70-6.10) Hemoglobin 10.3 G/DL (14.2-18.0) L Hematocrit 35.4 % (42.0-52.0) L Mean Corpuscular Volume 63 FL (80-99) L Mean Corpuscular Hemoglobin 18.4 PG (27.0-31.0) L Mean Corpuscular Hemoglobin Concent 29.0 G/DL (32.0-36.0) L Red Cell Distribution Width 19.2 % (11.6-14.8) H Platelet Count 267 K/UL (150-450) Mean Platelet Volume 6.0 FL (6.5-10.1) L Neutrophils (%) (Auto) 77.0 % (45.0-75.0) H Lymphocytes (%) (Auto) 15.5 % (20.0-45.0) L Monocytes (%) (Auto) 6.6 % (1.0-10.0) Eosinophils (%) (Auto) 0.1 % (0.0-3.0) Basophils (%) (Auto) 0.8 % (0.0-2.0) Sodium Level 138 MMOL/L (136-145) Potassium Level 3.8 MMOL/L (3.5-5.1) Chloride Level 103 MMOL/L (98-107) Carbon Dioxide Level 24 MMOL/L (21-32) Anion Gap 11 mmol/L (5-15) Blood Urea Nitrogen 6 mg/dL (7-18) L Creatinine 0.9 MG/DL (0.55-1.30) Estimat Glomerular Filtration Rate > 60 mL/min (>60) Glucose Level 205 MG/DL (74-106) H Calcium Level 8.4 MG/DL (8.5-10.1) L Microbiology Date/Time Source Procedure Growth Status 12/11/17 16:00 Blood Blood Culture - Preliminary NO GROWTH AFTER 24 HOURS Resulted 12/11/17 15:55 Blood Blood Culture - Preliminary NO GROWTH AFTER 24 HOURS Resulted Objective NECK: No JVD. LUNGS: Clear. CARDIOVASCULAR: Shows tachycardic. S1, S2 with no gallop or murmur. ABDOMEN: Soft. EXTREMITIES: No pitting edema. Kory Vyas MD Dec 13, 2017 15:49
[2017-12-13 16:00] VITALS: BP 144/90
--- NOTE | 2017-12-13 16:35 | Infectious Diseases Prog Note ---
Assessment/Plan Problems: (1) Sepsis Assessment & Plan: with leukocytosis, suspect reactive leukocytosis with negative blood culture X2 , CXR ruled out pneumonia , will stop vancomycin and cefepime empirically and monitor off antibiotics (2) Diabetic ketoacidosis associated with type 1 diabetes mellitus Assessment & Plan: due to non compliance, improving with insulin drip , continue tight glycemic control to keep blood glucose between 80-120 (3) Dehydration Assessment & Plan: due to poor oral intake, continue IVF (4) medication non-compliance Assessment & Plan: patient was counseled (5) NATALIE (acute kidney injury) Assessment & Plan: due to dehydration, continue IVF , renally dosed medications , monitor UOP Subjective Constitutional: Reports: no symptoms HEENT: Reports: no symptoms Respiratory: Reports: no symptoms Breasts: Reports: no symptoms Cardiovascular: Reports: no symptoms Gastrointestinal/Abdominal: Reports: no symptoms Genitourinary: Reports: no symptoms Neurologic: Reports: no symptoms Psychiatric: Reports: no symptoms Skin: Reports: no symptoms Endocrine: Reports: no symptoms Hematologic: Reports: no symptoms Musculoskeletal: Reports: no symptoms Allergies: Coded Allergies: No Known Allergies (Verified , 09/16/08) Objective Vital Signs Last 24 Hour Vital Signs Date Time Temp Pulse Resp B/P (MAP) Pulse Ox O2 Delivery O2 Flow Rate FiO2 12/13/17 12:00 98.0 76 19 132/86 (101) 100 98.0 12/13/17 09:00 Room Air 12/13/17 08:29 98.2 102 18 140/102 (115) 100 98.2 12/13/17 08:25 102 140/102 12/13/17 04:12 98.3 96 18 132/93 (106) 100 98.3 12/13/17 00:38 98.4 81 16 129/79 (96) 100 98.4 12/12/17 21:00 Room Air 12/12/17 20:46 86 126/84 12/12/17 19:59 98.3 86 17 126/84 (98) 100 98.3 Height (Feet): 5 Height (Inches): 9.00 Weight (Pounds): 135 General Appearance: WD/WN, no acute distress HEENT: normocephalic, atraumatic, anicteric, mucous membranes moist, PERRL Respiratory/Chest: chest wall non-tender, lungs clear, normal breath sounds, no respiratory distress, no accessory muscle use Cardiovascular: normal peripheral pulses, normal rate, regular rhythm, no gallop/murmur, no JVD Abdomen: normal bowel sounds, soft, non tender, no organomegaly, non distended , no mass, no scars Genitourinary: normal external genitalia Extremities: no cyanosis, no clubbing Skin: no rash, no lesions, no ulcers Neurologic/Psychiatric: alert, oriented x 3, responsive Lymphatic: no neck adenopathy, no groin adenopathy Musculoskeletal: normal muscle bulk, no effusion Microbiology Date/Time Source Procedure Growth Status 12/11/17 16:00 Blood Blood Culture - Preliminary NO GROWTH AFTER 24 HOURS Resulted 12/11/17 15:55 Blood Blood Culture - Preliminary NO GROWTH AFTER 24 HOURS Resulted Laboratory Tests Test 12/13/17 08:30 White Blood Count 6.0 K/UL (4.8-10.8) Red Blood Count 5.60 M/UL (4.70-6.10) Hemoglobin 10.3 G/DL (14.2-18.0) L Hematocrit 35.4 % (42.0-52.0) L Mean Corpuscular Volume 63 FL (80-99) L Mean Corpuscular Hemoglobin 18.4 PG (27.0-31.0) L Mean Corpuscular Hemoglobin Concent 29.0 G/DL (32.0-36.0) L Red Cell Distribution Width 19.2 % (11.6-14.8) H Platelet Count 267 K/UL (150-450) Mean Platelet Volume 6.0 FL (6.5-10.1) L Neutrophils (%) (Auto) 77.0 % (45.0-75.0) H Lymphocytes (%) (Auto) 15.5 % (20.0-45.0) L Monocytes (%) (Auto) 6.6 % (1.0-10.0) Eosinophils (%) (Auto) 0.1 % (0.0-3.0) Basophils (%) (Auto) 0.8 % (0.0-2.0) Sodium Level 138 MMOL/L (136-145) Potassium Level 3.8 MMOL/L (3.5-5.1) Chloride Level 103 MMOL/L (98-107) Carbon Dioxide Level 24 MMOL/L (21-32) Anion Gap 11 mmol/L (5-15) Blood Urea Nitrogen 6 mg/dL (7-18) L Creatinine 0.9 MG/DL (0.55-1.30) Estimat Glomerular Filtration Rate > 60 mL/min (>60) Glucose Level 205 MG/DL (74-106) H Calcium Level 8.4 MG/DL (8.5-10.1) L Current Medications Medications (Trade) Dose Ordered Sig/Carlos Route PRN Reason Start Time Stop Time Status Last Admin Dose Admin Acetaminophen (Tylenol) 500 mg Q4H PRN ORAL Mild Pain/Temp > 100.5 12/13/17 08:47 01/12/18 08:46 Clonidine HCl (Catapres Tab) 0.1 mg Q6H PRN ORAL For systolic bp over 160 12/12/17 15:26 01/10/18 15:25 Dextrose (Dextrose 50%) 25 ml Q30M PRN IV Hypoglycemia 12/12/17 15:30 01/10/18 08:29 Dextrose (Dextrose 50%) 50 ml Q30M PRN IV Hypoglycemia 12/12/17 15:30 01/10/18 08:29 Enoxaparin Sodium (Lovenox) 40 mg Q24H SUBQ 12/13/17 15:00 01/10/18 14:59 12/13/17 15:09 Famotidine (Pepcid) 20 mg DAILY ORAL 12/13/17 09:00 01/10/18 08:59 12/13/17 08:25 Insulin Aspart (NovoLOG) BEFORE MEALS AND HS SUBQ 12/12/17 16:30 01/10/18 11:29 12/13/17 12:31 Insulin Aspart (NovoLOG) 6 units NOVOTIAC SUBQ 12/12/17 16:50 01/11/18 11:49 12/13/17 12:31 Insulin Detemir (Levemir) 20 units BEDTIME SUBQ 12/12/17 21:00 01/11/18 20:59 Metoprolol Tartrate (Lopressor) 25 mg Q12HR ORAL 12/12/17 21:00 01/10/18 08:59 12/13/17 08:25 Ondansetron HCl (Zofran) 4 mg Q6H PRN IVP Nausea & Vomiting 12/12/17 15:28 01/09/18 15:27 12/13/17 06:59 Michael Irwin M.D. Dec 13, 2017 16:34
[2017-12-13 20:26] VITALS: BP 132/82
[2017-12-13] MEDS ORDERED: Levemir Flexpen SUBQ SCH (21:00)
[2017-12-14] VITALS: BP 129/91
[2017-12-14 04:00] VITALS: BP 134/78
[2017-12-14] MEDS: NovoLOG Insulin Flexpen SUBQ SCH ×4 (05:59→12:26)
[2017-12-14 07:52] LABS: ALANINE AMINOTRANSFERASE 14 U/L (12-78); ALBUMIN 2.4 G/DL (3.4-5.0); ALBUMIN/GLOBULIN RATIO 0.7 (1.0-2.7); ALKALINE PHOSPHATASE 128 U/L (46-116); ANION GAP 8 mmol/L (5-15); ASPARTATE AMINO TRANSFERASE 16 U/L (15-37); BILIRUBIN,TOTAL 0.4 MG/DL (0.2-1.0); BLOOD UREA NITROGEN 6 mg/dL (7-18); CALCIUM 8.4 MG/DL (8.5-10.1); CARBON DIOXIDE 27 MMOL/L (21-32); CHLORIDE 101 MMOL/L (98-107); CREATININE 0.7 MG/DL (0.55-1.30); POTASSIUM 3.5 MMOL/L (3.5-5.1); SODIUM 136 MMOL/L (136-145)
[2017-12-14 08:00] VITALS: BP 135/82
[2017-12-14] MEDS: Metoprolol 25mg tab ORAL SCH (08:39)
--- NOTE | 2017-12-14 09:00 | Nephrology Progress Note ---
Assessment/Plan Assessment/Plan A/P 1) DKA- resolved - low carb diet, insulin SS with Novolog and levemir - Case Manger consult for DC with HH - DC home today 2) Leukocytosis- afebrile, stress/DKA per ID. Resolved. W/U neg thus far. Off ABx 3) HTN- Lopressor 4) DVT prophylaxis with lovenox Subjective Date patient seen: Dec 14, 2017 Time patient seen: 08:58 ROS Limited/Unobtainable: No Allergies: Coded Allergies: No Known Allergies (Verified , 09/16/08) Subjective Patient much improved. DC home today Objective Last 24 Hour Vital Signs Date Time Temp Pulse Resp B/P (MAP) Pulse Ox O2 Delivery O2 Flow Rate FiO2 12/14/17 08:39 85 135/82 12/14/17 08:00 98.6 85 18 135/82 (99) 100 98.6 12/14/17 04:00 98.1 72 18 134/78 (96) 100 98.1 12/14/17 00:00 97.8 72 18 129/91 (104) 100 97.8 12/13/17 21:00 Room Air 12/13/17 20:33 101 132/82 12/13/17 20:26 97.9 94 18 132/82 (99) 99 97.9 101 12/13/17 16:00 98.0 94 18 144/90 (108) 100 98.0 12/13/17 12:00 98.0 76 19 132/86 (101) 100 98.0 12/13/17 09:00 Room Air Intake and Output 12/13/17 12/14/17 19:00 07:00 Intake Total 50 ml 1660 ml Output Total 2350 ml Balance 50 ml -690 ml Intake Oral 560 ml IV Total 50 ml 1100 ml Output Urine Total 2350 ml # Voids 2 Laboratory Tests 12/14/17 06:57: Sodium Level 136, Potassium Level 3.5, Chloride Level 101, Carbon Dioxide Level 27, Anion Gap 8, Blood Urea Nitrogen 6L, Creatinine 0.7, Estimat Glomerular Filtration Rate > 60, Glucose Level 110H, Calcium Level 8.4L, Total Bilirubin 0.4, Aspartate Amino Transf (AST/SGOT) 16, Alanine Aminotransferase (ALT/SGPT) 14, Alkaline Phosphatase 128H, Total Protein 5.8L, Albumin 2.4L, Globulin 3.4, Albumin/Globulin Ratio 0.7L Height (Feet): 5 Height (Inches): 9.00 Weight (Pounds): 135 General Appearance: no apparent distress, alert EENT: normal ENT inspection Neck: normal alignment, supple Cardiovascular: normal rate, regular rhythm Respiratory/Chest: lungs clear, normal breath sounds Abdomen: non tender, soft Edema: no edema noted Arm (L), no edema noted Arm (R), no edema noted Leg (L), no edema noted Leg (R), no edema noted Pedal (L), no edema noted Pedal (R), no edema noted Generalized Phoenix Palomo MD Dec 14, 2017 09:00
[2017-12-14] MEDS ORDERED: LOPRESSOR25 M1 ORAL (09:02)
--- NOTE | 2017-12-14 09:03 | Discharge Instructions ---
Discharge Instructions Discharge Instructions Services at Discharge: home health services Diet: 2 GM sodium (low sodium), diabetic calorie control Resume Normal Activity?: Yes Follow Up Orders Follow up with PCP 1 week For Congestive Heart Failure Reminder Report to your physician any weight gain of 5 pounds or more in one week. Phoenix Palomo MD Dec 14, 2017 09:03
[2017-12-14 12:00] VITALS: BP 140/89
[2017-12-14] MEDS ORDERED: NS 275ml ONE (14:09)
[2017-12-14] MEDS ORDERED: Tubing IV Secondary IV ONE (14:09)
--- NOTE | 2017-12-14 14:21 | Infectious Diseases Prog Note ---
Assessment/Plan Problems: (1) Sepsis Assessment & Plan: with leukocytosis, suspect reactive leukocytosis with negative blood culture X2 , CXR ruled out pneumonia , monitor off antibiotics (2) Diabetic ketoacidosis associated with type 1 diabetes mellitus Assessment & Plan: due to non compliance, improving with insulin drip , continue tight glycemic control to keep blood glucose between 80-120 (3) medication non-compliance Assessment & Plan: patient was counseled (4) NATALIE (acute kidney injury) Assessment & Plan: due to dehydration, improved, encourage hydration Subjective Constitutional: Reports: no symptoms HEENT: Reports: no symptoms Respiratory: Reports: no symptoms Breasts: Reports: no symptoms Cardiovascular: Reports: no symptoms Gastrointestinal/Abdominal: Reports: no symptoms Genitourinary: Reports: no symptoms Neurologic: Reports: no symptoms Psychiatric: Reports: no symptoms Skin: Reports: no symptoms Endocrine: Reports: no symptoms Hematologic: Reports: no symptoms Musculoskeletal: Reports: no symptoms Allergies: Coded Allergies: No Known Allergies (Verified , 09/16/08) Objective Vital Signs Last 24 Hour Vital Signs Date Time Temp Pulse Resp B/P (MAP) Pulse Ox O2 Delivery O2 Flow Rate FiO2 12/14/17 12:00 97.8 79 18 140/89 (106) 79 97.8 12/14/17 09:00 Room Air 12/14/17 08:39 85 135/82 12/14/17 08:00 98.6 85 18 135/82 (99) 100 98.6 12/14/17 04:00 98.1 72 18 134/78 (96) 100 98.1 12/14/17 00:00 97.8 72 18 129/91 (104) 100 97.8 12/13/17 21:00 Room Air 12/13/17 20:33 101 132/82 12/13/17 20:26 97.9 94 18 132/82 (99) 99 97.9 101 12/13/17 16:00 98.0 94 18 144/90 (108) 100 98.0 Height (Feet): 5 Height (Inches): 9.00 Weight (Pounds): 135 General Appearance: WD/WN, no acute distress HEENT: normocephalic, atraumatic, anicteric, mucous membranes moist, PERRL, EOMI, pharynx normal, supple, no JVD Respiratory/Chest: chest wall non-tender, lungs clear, normal breath sounds, no respiratory distress, no accessory muscle use Breasts: no masses Cardiovascular: normal peripheral pulses, normal rate, regular rhythm, no gallop/murmur, no JVD Abdomen: normal bowel sounds, soft, non tender, no organomegaly, non distended , no mass, no scars Genitourinary: normal external genitalia Extremities: no cyanosis, no clubbing Skin: no rash, no lesions, no ulcers Neurologic/Psychiatric: alert, oriented x 3, responsive Lymphatic: no neck adenopathy, no groin adenopathy Musculoskeletal: normal muscle bulk, no effusion Microbiology Date/Time Source Procedure Growth Status 12/11/17 16:00 Blood Blood Culture - Preliminary NO GROWTH AFTER 48 HOURS Resulted 12/11/17 15:55 Blood Blood Culture - Preliminary NO GROWTH AFTER 48 HOURS Resulted Laboratory Tests Test 12/14/17 06:57 Sodium Level 136 MMOL/L (136-145) Potassium Level 3.5 MMOL/L (3.5-5.1) Chloride Level 101 MMOL/L (98-107) Carbon Dioxide Level 27 MMOL/L (21-32) Anion Gap 8 mmol/L (5-15) Blood Urea Nitrogen 6 mg/dL (7-18) L Creatinine 0.7 MG/DL (0.55-1.30) Estimat Glomerular Filtration Rate > 60 mL/min (>60) Glucose Level 110 MG/DL (74-106) H Calcium Level 8.4 MG/DL (8.5-10.1) L Total Bilirubin 0.4 MG/DL (0.2-1.0) Aspartate Amino Transf (AST/SGOT) 16 U/L (15-37) Alanine Aminotransferase (ALT/SGPT) 14 U/L (12-78) Alkaline Phosphatase 128 U/L (46-116) H Total Protein 5.8 G/DL (6.4-8.2) L Albumin 2.4 G/DL (3.4-5.0) L Globulin 3.4 g/dL Albumin/Globulin Ratio 0.7 (1.0-2.7) L Michael Irwin M.D. Dec 14, 2017 14:21
--- NOTE | 2017-12-15 14:00 | Discharge Summary ---
Discharge Summary Discharge Summary _ DATE OF ADMISSION: 12/10/2017 DATE OF DISCHARGE: 12/14/2017 CONSULTANTS: Dr. Michael Monterroso BRIEF HOSPITAL COURSE: Patient's a 27-year-old gentleman, with multiple admissions for DKA. The patient was recently discharged from [facility] for similar reasons. He presented to [facility] with elevated serum glucose of over 600, creatinine 1.7, serum bicarbonate of 8. He denied any nausea, vomiting or diarrhea. He has not been taking his medications or following his diabetic diet since discharge from [facility]. He was admitted for diabetic ketoacidosis and dehydration with acute kidney injury. He was started on IV fluids as well as IV insulin and insulin drip. He was admitted to ICU. He was given aggressive IV hydration. He was noted to be tachycardic with heart rate of 150, most likely secondary to dehydration. Acute kidney kidney injury was secondary to volume depletion from DKA. Kidney function and electrolytes were monitored. He was placed on Lovenox for DVT prophylaxis. Patient was pancultured. He was started empirically on vancomycin and cefepime pending culture results. Patient has tachycardia, with no evidence of atrial fibrillation or atrial flutter or other tachyarrhythmias. Echocardiogram done showed normal ejection fraction of 65%. He was given Lopressor for hypertension. Anion gap closed. He was started on diet. Insulin drip discontinued. He was given sliding scale with NovoLog and Levemir. Blood glucose was monitored. Blood culture was negative 2. Chest x-ray rule out pneumonia. Leukocytosis, suspect to be secondary to reactive process. Antibiotics were discontinued. He was strongly counseled on need for strict dietary and medication compliance. Patient was recommended home health upon discharge for medication management. Patient was eventually discharged home. FINAL DIAGNOSES: Diabetic ketoacidosis, resolved Leukocytosis, reactive Hypertension Dehydration Medication noncompliance Acute kidney injury due to dehydration Sinus tachycardia DISPOSITION: Patient was discharged home. DISCHARGE MEDICATIONS: Refer to Discharge Medication List. DISCHARGE INSTRUCTIONS: Follow up with PCP in a week. I have been assigned to dictate discharge summary on this account, and I was not involved in the patient's management. Ciara Stiles NP Dec 15, 2017 14:00
== END 2017-12-14 14:10 | disposition home health service (06) | DRG 420 ==
LOC: EDBD 10:54 → EMR 11:17 → EDBEDREQ 11:31 → ICU 12:14 → EDBEDREQ 13:14 → 2E 12-11 15:30 → 3E 12-12 15:25
DX: E10.10 Type 1 diabetes mellitus with ketoacidosis without coma (principal); N17.9 Acute kidney failure, unspecified; E86.0 Dehydration; R00.0 Tachycardia, unspecified; I10 Essential (primary) hypertension; Z91.14 Patient's other noncompliance with medication regimen; K21.9 Gastro-esophageal reflux disease without esophagitis
CPT/HCPCS: 36415; 71045; 80048; 80053; 80307; 81003; 82009; 82248; 82962; 83036; 83735; 84443; 84484; 85007; 85025; 87040; 87081; 93005; 93306; 96361; 96374; 96375; 99291; J1815; J2405; S5561

== ENCOUNTER 2018-04-13 05:16 | Emergency (ER) | payer OTHER ==
[~2018-04-13] VITALS: Ht 175.3 cm; Wt 64.9 kg
[~2018-04-13 05:16] MED LIST changes: +LOPRESSOR25 M1 ORAL
[2018-04-13 05:20] VITALS: BP 144/90
--- NOTE | 2018-04-13 05:20 | NUR ---
ED Nurse Note: PT BROUGHT IN BY RA [id number], PT C/O ABD PAIN PAIN NAUSEA, VOMITNG, AND DIARHEA, PT HAS HISTORY OF DKA, PT IS COLD AND WAS WALKING IN THE RAIN
--- NOTE | 2018-04-13 06:14 | NUR ---
ED Nurse Note: PER VERBAL ORDER BY ERMRadha, PULL PO ZOFRAN. UNABLE TO RETRIEVE STEADY PATENT LINE FOR IV ZOFRAN
[2018-04-13 06:27] LABS: BASOPHILS % (AUTO) 2.3 % (0.0-2.0); EOSINOPHILS % (AUTO) 0.2 % (0.0-3.0); HEMATOCRIT 33.3 % (42.0-52.0); HEMOGLOBIN 9.9 G/DL (14.2-18.0); LYMPHOCYTES % (AUTO) 10.2 % (20.0-45.0); MEAN CORPUSCULAR VOLUME 66 FL (80-99); MONOCYTES % (AUTO) 6.2 % (1.0-10.0); NEUTROPHILS % (AUTO) 81.2 % (45.0-75.0); PLATELET COUNT 544 K/UL (150-450); RED BLOOD COUNT 5.02 M/UL (4.70-6.10); WHITE BLOOD COUNT 7.7 K/UL (4.8-10.8)
[2018-04-13 06:37] LABS: ANION GAP 7 mmol/L (5-15); BLOOD UREA NITROGEN 9 mg/dL (7-18); CALCIUM 8.1 MG/DL (8.5-10.1); CARBON DIOXIDE 29 MMOL/L (21-32); CHLORIDE 106 MMOL/L (98-107); CREATININE 0.8 MG/DL (0.55-1.30); POTASSIUM 4.2 MMOL/L (3.5-5.1); SODIUM 142 MMOL/L (136-145)
--- NOTE | 2018-04-13 06:40 | Emergency Room Report ---
History of Present Illness General Chief Complaint: Abdominal Pain Source: Patient Present Illness HPI 27-year-old male with a history of diabetes, no surgical history, presents with abdominal pain, nausea vomiting multiple episodes 4 days, reports normal bowel movements. He denies any bloody or coffee-ground emesis. The pain is diffuse and intermittent, moderate to severe, worse whenever he vomits, no alleviating factors. He also reports and a pressure sensation. Allergies: Coded Allergies: No Known Allergies (Verified , 09/16/08) Patient History Past Medical History: see triage record Reviewed Nursing Documentation: PMH: Agreed; PSxH: Agreed Nursing Documentation-PMH Hx Cardiac Problems: No Hx Hypertension: No Hx Pacemaker: No Hx Asthma: No Hx COPD: No Hx Diabetes: Yes Hx Cancer: No Hx Gastrointestinal Problems: Yes Hx Dialysis: No Hx Neurological Problems: No Hx Cerebrovascular Accident: No Hx Seizures: No Review of Systems All Other Systems: negative except mentioned in HPI Physical Exam Vital Signs Date Time Temp Pulse Resp B/P (MAP) Pulse Ox O2 Delivery O2 Flow Rate FiO2 04/13/18 05:18 99.1 90 18 144/90 100 Room Air Sp02 EP Interpretation: reviewed, normal General Appearance: no apparent distress, alert, non-toxic Head: normocephalic Eyes: bilateral eye normal inspection, bilateral eye PERRL, bilateral eye EOMI ENT: normal ENT inspection, hearing grossly normal, normal pharynx, no angioedema, normal voice, moist mucus membranes Neck: normal inspection, full range of motion, supple, supple/symm/no masses Respiratory: chest non-tender, lungs clear, normal breath sounds, chest symmetrical, palpation of chest normal Cardiovascular #1: normal peripheral pulses, regular rate, rhythm Cardiovascular #2: 2+ radial (R), 2+ radial (L), 2+ dorsalis pedis (R), 2+ dorsalis pedis (L) Gastrointestinal: normal inspection, non tender - mild diffuse tendernes, soft , no mass, no guarding, no rebound Rectal: deferred Genitourinary: normal inspection, no CVA tenderness Musculoskeletal: back normal, gait/station normal, normal range of motion, non- tender, no calf tenderness Neurologic: alert, responsive, plunket nurse III-XII nml as tested, motor strength/tone normal, sensory intact, speech normal Psychiatric: judgement/insight normal, memory normal, mood/affect normal Skin: normal color, no rash, warm/dry, normal turgor Lymphatic: no adenopathy Procedures Additional Procedure Procedure Narrative Procedure note: Right external jugular vein peripheral IV insertion Using alcohol swab, swabbed the right neck, then placed patient in trendelenburg positioning, and using a 20g IV, was able to cannulate the R external jugular vein on 1st attempt with no complications. Dark, nonpulsatile blood flow flash was returned, the IV flushed with 10cc NSS, and a sterile tegaderm placed over the site. EBL= 0cc. Medical Decision Making Diagnostic Impression: Primary Impression: Hyperglycemia Additional Impression: Abdominal pain ER Course Patient has had 3 L normal saline, his labs are fairly unremarkable other than evidence of glycosuria, hypoglycemia, but no evidence of DKA or renal failure. No evidence for severe dehydration. Patient is a soft, nonfocal abdominal examination, he is laying sleeping in no distress, tox screen positive for marijuana. I counseled patient about poorly controlled diabetes as well as low carbohydrate diet, avoidance of marijuana, and he is able tolerate by mouth crackers and water, and was discharged, diagnosis hyperglycemia, possible diabetic gastroparesis versus cannabinoid hyperemesis syndrome. I did give 2.5 mg IM Haldol, otherwise no analgesics, did get Zofran and fluids, obtained a flu swab which is negative because triage note reported body aches although I did not elicit that history when I talked to the patient. Patient's hemoglobin is 9.9, which seems to be about baseline for him, suspect anemia of chronic disease, will discharge with PMD follow-up. Rhythm Strip Diag. Results Rhythm Strip Time: 07:50 EP Interpretation: yes Rate: 103 Rhythm: NSR, no PVC's, no ectopy Last Vital Signs Date Time Temp Pulse Resp B/P (MAP) Pulse Ox O2 Delivery O2 Flow Rate FiO2 04/13/18 05:22 99.1 90 18 144/90 100 Room Air Status: improved Disposition: HOME, SELF-CARE Condition: Stable Referrals: [facility],REFERRING (PCP) LYRIC GALICIA M.D Apr 13, 2018 06:40
[2018-04-13 06:41] LABS: ALANINE AMINOTRANSFERASE 29 U/L (12-78); ALBUMIN 2.7 G/DL (3.4-5.0); ALBUMIN/GLOBULIN RATIO 0.8 (1.0-2.7); ALKALINE PHOSPHATASE 144 U/L (46-116); ASPARTATE AMINO TRANSFERASE 27 U/L (15-37); BILIRUBIN,TOTAL 0.3 MG/DL (0.2-1.0)
[2018-04-13 06:44] VITALS: BP 138/87
[2018-04-13 06:44] LABS: APPEARANCE,URINE CLEAR; BILIRUBIN, URINE NEGATIVE (NEGATIVE); COLOR,URINE PALE YELLOW; GLUCOSE, URINE (UA) 4+ (NEGATIVE); KETONES,URINE 1+ (NEGATIVE); LEUKOCYTE ESTERASE ,URINE NEGATIVE (NEGATIVE); NITRITE,URINE NEGATIVE (NEGATIVE); PH,URINE 7 (4.5-8.0); PROTEIN,URINE NEGATIVE (NEGATIVE); UROBILINOGEN,URINE NORMAL MG/DL (0.0-1.0)
[2018-04-13] MEDS ORDERED: NKM (06:46)
--- NOTE | 2018-04-13 07:02 | NUR ---
HAND-OFF: Report given to CARMENZA Luciano.
[2018-04-13 07:15] VITALS: BP 129/74
--- NOTE | 2018-04-13 07:15 | NUR ---
ED Nurse Note: Received patient in bed resting. VSS, skin dry but intact, aao x4, sleeping but wakes up as nurse walked in. pt urinated yellow and clear urine in urinal. pt has not had any symptoms of N/V/D since shift changes. sleeping in bed in stable condition.
--- NOTE | 2018-04-13 07:50 | NUR ---
ED Nurse Note: Pt refused Haldol 2.5mg IM injection x3 as stating "Don't poke me. I have IV, why can't you give me thru IV?" Reported to MD and order has been canceled.
[2018-04-13] MEDS: Haloperidol 5mg/ml Inj IM ONE ×2 (07:51→08:02)
[2018-04-13] MEDS ORDERED: REGLAN10 MG ORAL (07:52)
--- NOTE | 2018-04-13 08:17 | NUR ---
ED Nurse Note: Patient was provided the list of shelters and free clinic and food and drink.
--- NOTE | 2018-04-13 08:23 | NUR ---
ED Nurse Note: Pt's clothing was wet and he was provided dry weather appropriate clothing.
[2018-04-13 08:30] VITALS: BP 133/74
--- NOTE | 2018-04-13 08:32 | NUR ---
ED Nurse Note: Pt was cleared to be discharged by ERMD. Pt received prescription and discharge instruction. pt will select [facility] from the list he was provided. EJ and id band were removed. pt verbalized understanding on discharge instruction and choices of shleter and free clinic. pt aao x4 and demonstrated stable ambulation upon discharge.
== END 2018-04-13 08:30 | disposition home or self-care (01) ==
LOC: EDUNIT# 05:16 → EDBD 05:16 → EMR 05:57
DX: E11.65 Type 2 diabetes mellitus with hyperglycemia (principal); R10.9 Unspecified abdominal pain; R11.2 Nausea with vomiting, unspecified
CPT/HCPCS: 36415; 80053; 80307; 81003; 82962; 83690; 85025; 86710; 96361; 96374; 96375; 99284; J2405; S0028

== ENCOUNTER 2019-07-22 16:02 | Inpatient (IN) | payer OTHER ==
[~2019-07-22] VITALS: Ht 153.9 cm; Wt 63.1 kg
[2019-07-22 16:02] VITALS: BP 140/70
[~2019-07-22 16:02] MED LIST changes: +Insulin Human Regular 100units/ml 3ml IV ONE; +Insulin Reg 100 units Premix 100 ML IV SCH; +NKM; +REGLAN10 MG ORAL
--- NOTE | 2019-07-22 16:10 | NUR ---
ED Nurse Note: Pt brought into ED by ambulance from streets. Per ambualnce, BS over 500, and patient has mid abdominal pain. Patient is alert and orientedx4, weak, and drowsy, cooperative. He is set up on monitor. ERMD aware pt is tachycardia rate. IV attempted by 3 RNs unsuccesffully, ERMD aware.
--- NOTE | 2019-07-22 16:30 | NUR ---
ED Nurse Note: Blood sample collected and sent to lab
--- NOTE | 2019-07-22 16:32 | Emergency Room Report ---
History of Present Illness General Chief Complaint: Abdominal Pain Source: EMS Present Illness HPI Patient a 28-year-old male brought in by EMS after increased abdominal pain and vomiting. Reportedly had prior history of type 1 diabetes. He reports being on Lantus as well as Humalog. Reports recent hospitalization at [facility]. Denies taking insulin today. Blood sugar checked by EMS was noted to be greater than 500. Patient had previous history of marijuana use. He denies taking any insulin today. Denies any fever. Reports having some epigastric abdominal pain. Allergies: Coded Allergies: No Known Allergies (Verified , 09/16/08) COVID-19 Screening Contact w/high risk pt: No Recent Travel to affected area: No Experienced COVID-19 symptoms?: No COVID-19 Testing performed PRODUCTION WORKER: No Patient History Past Medical History: see triage record, DM Reviewed Nursing Documentation: PMH: Agreed; PSxH: Agreed Nursing Documentation-PMH Past Medical History: No History, Except For Hx Cardiac Problems: No Hx Hypertension: Yes Hx Pacemaker: No Hx Asthma: No Hx COPD: No Hx Diabetes: Yes Hx Cancer: No Hx Gastrointestinal Problems: Yes Hx Dialysis: No Hx Neurological Problems: No Hx Cerebrovascular Accident: No Hx Seizures: No Review of Systems All Other Systems: negative except mentioned in HPI Physical Exam Vital Signs Date Time Temp Pulse Resp B/P (MAP) Pulse Ox O2 Delivery O2 Flow Rate FiO2 07/22/19 15:45 98.1 136 20 193/96 (128) 96 Room Air Sp02 EP Interpretation: reviewed, normal General Appearance: normal inspection, alert, GCS 15, mild distress, Chronically Ill Head: atraumatic ENT: normal ENT inspection, hearing grossly normal, normal voice Neck: normal inspection, full range of motion, supple, no bony tend Respiratory: normal inspection, lungs clear, normal breath sounds, no respiratory distress, no retraction, no wheezing Cardiovascular #1: regular rate, rhythm, no edema Gastrointestinal: normal inspection, normal bowel sounds, non tender, soft, no guarding, no hernia Genitourinary: no CVA tenderness Musculoskeletal: normal inspection, back normal, normal range of motion Neurologic: alert, motor strength/tone normal, oriented x3, responsive, speech normal, normal inspection Psychiatric: normal inspection, judgement/insight normal, mood/affect normal Procedures Critical Care Time Critical Care Time Patient had a critical medical condition which untreated could potentially result in life or limb threatening injury. Total critical care time excluding procedures approximately 45 minutes. Medical Decision Making Diagnostic Impression: Primary Impression: Diabetic ketoacidosis associated with type 1 diabetes mellitus Additional Impressions: Abdominal pain Sinus tachycardia ER Course Patient presented for abdominal pain. Differential diagnoses included ischemic bowel, appendicitis, perforated viscus, abdominal aortic aneurysm, inferior myocardial infarction, viral gastroenteritis among others.Because patient's complexity imaging studies, and laboratory testing ordered. Patient's initial bicarb was noted to be markedly diminished as well as relative normal BUN/creatinine patient's initial anion gap was markedly elevated Patient's laboratory testing showed some evidence of metabolic acidosis with pH slightly greater than 7. Patient started on IV fluids as well as IV insulin. He was started on insulin drip. Patient will be admitted for further management of diabetic ketoacidosis. Dr. Derrick Strong was contacted for inpatient management. Labs Test 07/22/19 16:24 07/22/19 16:30 Venous Blood pH 7.089 Venous Blood Partial Pressure CO2 38.9 Venous Blood Partial Pressure O2 21.7 Venous Blood HCO3 11.5 Venous Blood Total Carbon Dioxide 38.9 Venous Blood Base Excess -17.6 Venous Blood Carboxyhemoglobin 1.5 % (0.5-1.5) Methemoglobin 0.8 White Blood Count 6.8 K/UL (4.8-10.8) Red Blood Count 7.34 M/UL (4.70-6.10) Hemoglobin 14.4 G/DL (14.2-18.0) Hematocrit 50.6 % (42.0-52.0) Mean Corpuscular Volume 69 FL (80-99) Mean Corpuscular Hemoglobin 19.6 PG (27.0-31.0) Mean Corpuscular Hemoglobin Concent 28.5 G/DL (32.0-36.0) Red Cell Distribution Width 22.5 % (11.6-14.8) Platelet Count 390 K/UL (150-450) Mean Platelet Volume 7.9 FL (6.5-10.1) Neutrophils (%) (Auto) 80.3 % (45.0-75.0) Lymphocytes (%) (Auto) 12.3 % (20.0-45.0) Monocytes (%) (Auto) 5.7 % (1.0-10.0) Eosinophils (%) (Auto) 0.0 % (0.0-3.0) Basophils (%) (Auto) 1.6 % (0.0-2.0) Sodium Level 134 MMOL/L (136-145) Potassium Level 4.8 MMOL/L (3.5-5.1) Chloride Level 93 MMOL/L (98-107) Carbon Dioxide Level 12 MMOL/L (21-32) Anion Gap 29 mmol/L (5-15) Blood Urea Nitrogen 10 mg/dL (7-18) Creatinine 1.4 MG/DL (0.55-1.30) Estimat Glomerular Filtration Rate > 60 mL/min (>60) Glucose Level 550 MG/DL (74-106) Calcium Level 9.6 MG/DL (8.5-10.1) Magnesium Level 2.2 MG/DL (1.8-2.4) Total Bilirubin 1.6 MG/DL (0.2-1.0) Direct Bilirubin 0.4 MG/DL (0.0-0.3) Aspartate Amino Transf (AST/SGOT) 38 U/L (15-37) Alanine Aminotransferase (ALT/SGPT) 56 U/L (12-78) Alkaline Phosphatase 175 U/L (46-116) Troponin I 0.000 ng/mL (0.000-0.056) Total Protein 9.4 G/DL (6.4-8.2) Albumin 4.7 G/DL (3.4-5.0) Globulin 4.7 g/dL Albumin/Globulin Ratio 1.0 (1.0-2.7) Lipase 35 U/L (73-393) Acetone Level Positive-large (NEGATIVE) EKG Diagnostic Results Rate: tachycardiac - 127 Rhythm: NSR Last Vital Signs Date Time Temp Pulse Resp B/P (MAP) Pulse Ox O2 Delivery O2 Flow Rate FiO2 07/22/19 15:45 98.1 136 20 193/96 (128) 96 Room Air Status: unchanged Disposition: ADMITTED INPATIENT Condition: Critical Augusto Joe MD July 22, 2019 16:32
[2019-07-22] MEDS ORDERED: Insulin Reg 100 units Premix 100 ML IVPB ONE (16:36)
[2019-07-22] MEDS ORDERED: Insulin Human Regular 100units/ml 3ml ONE (16:36)
--- NOTE | 2019-07-22 16:52 | NUR ---
ED Nurse Note: all due medication given at this time. pt tolerated well. pt is unable to provide urine sample at this time.
[2019-07-22 17:02] LABS: BASOPHILS % (AUTO) 1.6 % (0.0-2.0); HEMATOCRIT 50.6 % (42.0-52.0); HEMOGLOBIN 14.4 G/DL (14.2-18.0); LYMPHOCYTES % (AUTO) 12.3 % (20.0-45.0); MEAN CORPUSCULAR VOLUME 69 FL (80-99); MONOCYTES % (AUTO) 5.7 % (1.0-10.0); NEUTROPHILS % (AUTO) 80.3 % (45.0-75.0); PLATELET COUNT 390 K/UL (150-450); RED BLOOD COUNT 7.34 M/UL (4.70-6.10); RED CELL DISTRIBUTION WIDTH 22.5 % (11.6-14.8); WHITE BLOOD COUNT 6.8 K/UL (4.8-10.8)
[2019-07-22 17:33] LABS: ALANINE AMINOTRANSFERASE 56 U/L (12-78); ALBUMIN 4.7 G/DL (3.4-5.0); ALKALINE PHOSPHATASE 175 U/L (46-116); ANION GAP 29 mmol/L (5-15); ASPARTATE AMINO TRANSFERASE 38 U/L (15-37); BILIRUBIN,TOTAL 1.6 MG/DL (0.2-1.0); BLOOD UREA NITROGEN 10 mg/dL (7-18); CALCIUM 9.6 MG/DL (8.5-10.1); CARBON DIOXIDE 12 MMOL/L (21-32); CHLORIDE 93 MMOL/L (98-107); CREATININE 1.4 MG/DL (0.55-1.30); POTASSIUM 4.8 MMOL/L (3.5-5.1); SODIUM 134 MMOL/L (136-145)
--- NOTE | 2019-07-22 17:36 | NUR ---
ED Nurse Note: Pt still unable to provided urine, refusing straight cath. ERMD aware.
[2019-07-22 17:40] LABS: BILIRUBIN,DIRECT 0.4 MG/DL (0.0-0.3)
--- NOTE | 2019-07-22 17:40 | NUR ---
ED Nurse Note: HR at 150. ERMD aware.
[2019-07-22 17:45] VITALS: BP 133/72
[2019-07-22] MEDS ORDERED: Metoclopramide 10mg/2ml Inj IVP ONE (17:45)
--- NOTE | 2019-07-22 18:52 | NUR ---
ED Nurse Note: Per Dr Joe, since BS accucheck is 249, he states to change insulin drip from 6 to 4 mL/hr. Input in IV spreadsheet.
[2019-07-22] MEDS ORDERED: D5 1/2NS w/KCl 20mEq 1,000 ML IV SCH (19:00)
[2019-07-22 19:09] VITALS: BP 141/65
--- NOTE | 2019-07-22 19:14 | NUR ---
ED Nurse Note: Urine and CMP sent.
--- NOTE | 2019-07-22 19:20 | NUR ---
ED Nurse Note: Report received from CARMENZA Obrien. Pt resting comfortably in bed, HR elevated (115) ERMD aware. No ss of distress noted. Will continue to monitor.
[2019-07-22 19:22] LABS: APPEARANCE,URINE SLIGHTLY CLOUDY; BILIRUBIN, URINE NEGATIVE (NEGATIVE); COLOR,URINE PALE YELLOW; GLUCOSE, URINE (UA) 4+ (NEGATIVE); KETONES,URINE 4+ (NEGATIVE); LEUKOCYTE ESTERASE ,URINE NEGATIVE (NEGATIVE); NITRITE,URINE NEGATIVE (NEGATIVE); PH,URINE 5 (4.5-8.0); PROTEIN,URINE 2+ (NEGATIVE); UROBILINOGEN,URINE NORMAL MG/DL (0.0-1.0)
[2019-07-22 19:37] LABS: ALANINE AMINOTRANSFERASE 39 U/L (12-78); ALBUMIN 3.1 G/DL (3.4-5.0); ALBUMIN/GLOBULIN RATIO 0.9 (1.0-2.7); ALKALINE PHOSPHATASE 117 U/L (46-116); ASPARTATE AMINO TRANSFERASE 30 U/L (15-37); BILIRUBIN,TOTAL 0.9 MG/DL (0.2-1.0); BLOOD UREA NITROGEN 10 mg/dL (7-18); CALCIUM 7.6 MG/DL (8.5-10.1); CARBON DIOXIDE 14 MMOL/L (21-32); CREATININE 1.1 MG/DL (0.55-1.30)
--- NOTE | 2019-07-22 19:44 | Diagnostic Imaging Report ---
EXAM: XR Chest, 1 View CLINICAL HISTORY: SOB TECHNIQUE: Frontal view of the chest. COMPARISON: No relevant prior studies available. FINDINGS: Lungs: Low lung volumes with bronchovascular crowding. No consolidation, pleural effusion, or pneumothorax. Pleural space: See above. Heart: Unremarkable. No cardiomegaly. Mediastinum: Unremarkable. Bones/joints: Unremarkable. IMPRESSION: 1. Low lung volumes with bronchovascular crowding. 2. Otherwise no acute cardiopulmonary disease. 3. If there is continued concern, recommend frontal and lateral chest radiographs or CT.
[2019-07-22 19:49] LABS: CHLORIDE 103 MMOL/L (98-107); POTASSIUM 4.1 MMOL/L (3.5-5.1); SODIUM 139 MMOL/L (136-145)
--- NOTE | 2019-07-22 19:50 | NUR ---
ED Nurse Note: BS recheck 171. ERMD notified. Per ERMD, IV insulin drip paused temporarily. Will continue to monitor.
[2019-07-22 21:40] VITALS: BP 133/79
--- NOTE | 2019-07-22 22:00 | NUR ---
ED Nurse Note: BS recheck 150. ERMD notified. IV insulin drip resumed with additional medications. See EMAR. report given to CARMENZA Peters for pt transfer to ICU.
[2019-07-22] MEDS ORDERED: Dextrose 10% 1,000 ML IV ONE (22:13)
[2019-07-22] MEDS ORDERED: Dextrose 10% 1,000 ML IV SCH (22:15)
--- NOTE | 2019-07-22 22:30 | NUR ---
ER DISCHARGE NOTE: Patient is cleared to be discharged to ICU per ERMD, pt is aox4, 100% on room air, with elevated HR 106. pt was able to verbalize understanding. pt is able to ambulate with steady gait. pt took all belongings. Pt transferred to unit with 1 MILLWRIGHT HELPER and 1 RN. Report given to CARMENZA Peters.
[2019-07-22 23:00] VITALS: BP 123/75
--- NOTE | 2019-07-22 23:00 | NUR ---
NURSE NOTES: ADMITTED FROM ER REPORT GIVEN FROM LOCY RN PT AWAKE AND ALERT BS 171 ON INSULIN DRIP AI 2UNT DR FRAGOSO WAS NOTIFY FOR ADMIT ORDER
[2019-07-23] VITALS (15 sets, daily range): BP systolic 119–156; BP diastolic 62–98
[2019-07-23] MEDS ORDERED: Insulin Rate Change 1 Each MISC PRN ×2 (00:30→07:15)
[2019-07-23] MEDS ORDERED: Insulin Reg 100 units Premix 100 ML IV SCH (00:30)
[2019-07-23] MEDS ORDERED: Insulin Human Regular 100units/ml 3ml IV PRN ×4 (00:30→07:15)
--- NOTE | 2019-07-23 01:00 | NUR ---
NURSE NOTES: DR OLVERA CALL BACK WITH ORDER MADE
[2019-07-23] MEDS ORDERED: Insulin Reg 100 units Premix 100 ML IVPB SCH ×2 (04:00→07:15)
--- NOTE | 2019-07-23 04:00 | NUR ---
NURSE NOTES: COMPLETE BED BATH DONE INSULIN DRIP OFF BS 76
[2019-07-23 05:48] LABS: BASOPHILS % (AUTO) 1.3 % (0.0-2.0); EOSINOPHILS % (AUTO) 0.2 % (0.0-3.0); HEMATOCRIT 33.1 % (42.0-52.0); HEMOGLOBIN 9.9 G/DL (14.2-18.0); LYMPHOCYTES % (AUTO) 22.3 % (20.0-45.0); MEAN CORPUSCULAR VOLUME 65 FL (80-99); MONOCYTES % (AUTO) 6.3 % (1.0-10.0); PLATELET COUNT 322 K/UL (150-450); RED BLOOD COUNT 5.11 M/UL (4.70-6.10); RED CELL DISTRIBUTION WIDTH 19.4 % (11.6-14.8); WHITE BLOOD COUNT 7.2 K/UL (4.8-10.8)
--- NOTE | 2019-07-23 06:00 | NUR ---
NURSE NOTES: BS 87 DR FRAGOSO WAS NOTIFY
[2019-07-23 06:27] LABS: ALANINE AMINOTRANSFERASE 33 U/L (12-78); ALBUMIN 2.6 G/DL (3.4-5.0); ALBUMIN/GLOBULIN RATIO 0.8 (1.0-2.7); ALKALINE PHOSPHATASE 97 U/L (46-116); ANION GAP 12 mmol/L (5-15); ASPARTATE AMINO TRANSFERASE 25 U/L (15-37); BILIRUBIN,TOTAL 0.6 MG/DL (0.2-1.0); BLOOD UREA NITROGEN 5 mg/dL (7-18); CALCIUM 7.5 MG/DL (8.5-10.1); CARBON DIOXIDE 20 MMOL/L (21-32); CHLORIDE 108 MMOL/L (98-107); CREATININE 0.9 MG/DL (0.55-1.30); POTASSIUM 4.1 MMOL/L (3.5-5.1); SODIUM 140 MMOL/L (136-145)
--- NOTE | 2019-07-23 07:21 | NUR ---
NURSE NOTES: Received report from CARMENZA Peters. Patient asleep and responsive to verbal, AAO x4. No distress/SOB noted. Left forearm 22G IV intact and running with insulin drip 1.2units/hr and NS 125ml/hr at this time. Kept dry, clean and comfortable. Will continue plan of care.
--- NOTE | 2019-07-23 07:26 | NUR ---
NURSE NOTES: Seen by Dr. Parks and updated patient's status. He said he will DC insulin drip and put diet. Will follow up.
--- NOTE | 2019-07-23 07:30 | NUR ---
HAND-OFF: Report given to DIONI HERR USING SBAR.
[2019-07-23] MEDS: NovoLOG Insulin Flexpen SUBQ SCH ×7 (08:28→20:25)
[2019-07-23] MEDS ORDERED: Levemir Flexpen SUBQ SCH (09:00)
[2019-07-23] MEDS ORDERED: Pantoprazole Inj IVP SCH (09:00)
--- NOTE | 2019-07-23 09:02 | NUR ---
NURSE NOTES: Offered breakfast. 25% intake noted.
--- NOTE | 2019-07-23 09:25 | NUR ---
NURSE NOTES: Ordered sandwich per pt request.
--- NOTE | 2019-07-23 10:21 | NUR ---
NURSE NOTES: Patient asleep. No distress noted.
--- NOTE | 2019-07-23 11:30 | NUR ---
NURSE NOTES: BS 71. Asymptomatic. Held insulin. Offered 2 apple juice as pt requested. Will continue to monitor.
--- NOTE | 2019-07-23 11:51 | NUR ---
NURSE NOTES: Seen by Dr. Strong and assessed patient.
--- NOTE | 2019-07-23 12:44 | NUR ---
TRANSFER TO FLOOR: Transferred to patient to -1. Inventory check done with David/Charge nurse. Report given to CARMENZA Hedrick. Pateint is in stable condition. No distress noted. Endorsed plan of care.
--- NOTE | 2019-07-23 13:00 | NUR ---
NURSE NOTES: Patient arrived to unit at 1240 via bed from ICU. Received report from Bertin HERR. Patient is awake and oriented, in no apparent distress. IV intact, patent. Patient updated on plan of care. Side rails upx3, bed low and locked, call light within reach, patient educated to call for assistance when getting OOB and verbalized agreement.
--- NOTE | 2019-07-23 16:00 | Consultation ---
DATE OF CONSULTATION: 07/23/2019 ENDOCRINOLOGY CONSULTATION CONSULTING PHYSICIAN: Gunnar Parks MD REFERRING PHYSICIAN: Derrick Strong MD REASON FOR CONSULTATION: DKA. HISTORY OF PRESENT ILLNESS: The patient is a 28-year-old male with a history of type 1 diabetes, who presented to the hospital with a glucose of 550 with a chloride of 93, sodium 134, bicarb of 12, anion gap of 29, and a creatinine of 1.4. The patient was found to be in DKA, admitted to the ICU for aggressive treatment with IV fluid and IV insulin and subsequent electrolyte values shows an anion gap of 12 and potassium is normal at 4.1, hemoglobin A1c is 12.9. The patient is able to eat. PAST MEDICAL HISTORY: 1. Multiple DKAs. 2. Type 1 diabetes. 3. Abdominal pain. 4. Marijuana use. 5. Hypertension. PAST SURGICAL HISTORY: None. FAMILY HISTORY: Noncontributory. SOCIAL HISTORY: The patient is a marijuana smoker. No alcohol. REVIEW OF SYSTEMS: A 12-point review of systems performed. The pertinent positive and negative in the history of present illness. PHYSICAL EXAMINATION: GENERAL: The patient is awake and alert. VITAL SIGNS: Blood pressure is 193/96, respiratory rate 20, pulse 136, temperature 98.1. HEENT: Pupils are equal and reactive to light. Sclerae are anicteric. NECK: No JVD. No thyromegaly. LUNGS: Clear. HEART: Regular rate and rhythm. ABDOMEN: Positive bowel sounds. EXTREMITIES: No clubbing, cyanosis, or edema. LABORATORY VALUES: Discussed in the present illness. DIAGNOSES: 1. Type 1 diabetes with DKA. 2. Noncompliance. 3. Hypertension. PLAN: 1. Continue insulin drip. 2. Continue IV fluid. 3. Start Levemir 10 units b.i.d. 4. Start NovoLog 8 units before each meal. 5. NovoLog sliding scale before meals and at bedtime. 6. Hypoglycemia protocol has been ordered. 7. Further adjustment according to blood glucose values. Thank you Dr. Strong for the courtesy of this consultation. Gunnar Parks M.D. : CARMENZA/ZENON JOB#: [id number] CC:
--- NOTE | 2019-07-23 17:31 | NUR ---
NURSE NOTES: Mealtime insulin not given due to patient refusing dinner. Patient stated he is not hungry at this time. Last blood glucose 118.
--- NOTE | 2019-07-23 17:50 | NUR ---
NURSE NOTES: DVT prophylaxis order received from Dr. Strong and entered.
--- NOTE | 2019-07-23 19:00 | History and Physical Report ---
DATE OF ADMISSION: 07/22/2019 HISTORY OF PRESENT ILLNESS: This is a young 28-year-old male who came to the emergency room for DKA and having abdominal pain, nausea, vomiting, UTI for last 2 weeks. The patient currently has been diabetic type 1, has been taking marijuana. The patient came with hyperkalemia, diabetic ketoacidosis, leukocytosis, recurrent abdominal pain for 2 weeks. The patient seems to have poor compliance, has been claiming he has been taking Lantus as well as Humalog but has been not taking his blood sugar or checking Accu-Chek. PAST MEDICAL HISTORY: As listed, diabetes, history of marijuana intake. MEDICATIONS: Humalog and Lantus. ALLERGIES: NKA. FAMILY HISTORY: Noncontributory. SOCIAL HISTORY: Lives at home. Denies any alcohol. Denies any illegal drugs. Lives with the family PHYSICAL EXAMINATION: GENERAL: The patient is alert and oriented x3. He is still not feeling well. He is still complaining of abdominal pain. VITAL SIGNS: Blood pressure is 131/77, pulse 87, respirations 13, saturation 95%, temperature 97.6. HEENT: AT/NC. EOMI. PERRLA. NECK: Supple. No JVD. CHEST: Bilateral decreased breath sounds. CARDIOVASCULAR: Regular rhythm. No gallop. No murmur. ABDOMEN: Soft. Positive bowel sounds. Mild tenderness on palpation. GENITOURINARY: Deferred. LABORATORY DATA: White counts are 7.2, hemoglobin 10, hematocrit 33, platelets are 322. Chemistry panel, sodium 140, potassium 4.1, BUN 5, creatinine 0.9. Glucose was 550, today is 92. A1c is 13. Osmolarity is . Microbiology reports are pending. IMAGING: Chest x-ray, low lung volumes with bronchovascular crowding; otherwise, no acute cardiopulmonary disease. ASSESSMENT: 1. DKA. 2. Abdominal pain. 3. Dehydration. PLAN: We will admit. The patient is in ICU, just off the insulin drip. Now, he is on sliding scale, Accu-Chek. He is still slightly symptomatic. Order the diet. Continue sliding scale and Accu-Chek. Transfer to the medical floor. Derrick Strong M.D. DR: Esther JOB#: [id number] CC:
--- NOTE | 2019-07-23 19:10 | NUR ---
NURSE NOTES: Received report from Floridalma HERR, rounds made pt wake,no s/s of distress denies any pain, no i.v acces , bed in low locked position call light with, will continue with plan of care
--- NOTE | 2019-07-23 19:12 | NUR ---
NURSE NOTES: Patient's LFA IV infiltrated. IV removed intact. Attempted IV access x2, unable to obtain at this time.
--- NOTE | 2019-07-23 19:26 | NUR ---
HAND-OFF: Report given to Ricardo HERR.
[2019-07-23] MEDS: Levemir Flexpen SUBQ SCH (20:23)
[2019-07-24] VITALS (7 sets, daily range): BP systolic 142–165; BP diastolic 92–109
[2019-07-24] MEDS: NovoLOG Insulin Flexpen SUBQ SCH ×7 (06:30→20:38)
--- NOTE | 2019-07-24 07:20 | General Progress Note ---
Assessment/Plan Problem List: (1) Diabetic ketoacidosis associated with type 1 diabetes mellitus (2) Hyperglycemia Status Narrative continue Levemir 10 units bid continue Novolog 8 units ac tid continue Novolog sliding scale ac / hs Subjective Allergies: Coded Allergies: No Known Allergies (Verified , 09/16/08) All Systems: reviewed and negative except above Subjective events noted transferred out of ICU - DKA resolved glucose values improved Item Value Date Time Bedside Blood Glucose 132 mg/dl H 07/24/19 0639 Bedside Blood Glucose 222 mg/dl H 07/23/19 2100 Bedside Blood Glucose 118 mg/dl 07/23/19 1730 Bedside Blood Glucose 71 mg/dl 07/23/19 1130 Bedside Blood Glucose 144 mg/dl H 07/23/19 0830 Bedside Blood Glucose 86 mg/dl 07/23/19 0600 Bedside Blood Glucose 156 mg/dl H 07/23/19 0201 Objective Last 24 Hour Vital Signs Date Time Temp Pulse Resp B/P (MAP) Pulse Ox O2 Delivery O2 Flow Rate FiO2 07/24/19 04:00 97.9 98 20 143/99 (114) 100 07/24/19 00:00 98.5 86 20 142/92 (109) 96 07/23/19 21:00 Room Air 07/23/19 20:00 98.8 90 18 149/98 (115) 100 07/23/19 16:00 98.5 77 16 138/98 (111) 99 07/23/19 12:00 Room Air 07/23/19 12:00 86 07/23/19 12:00 92 16 156/98 (117) 100 07/23/19 11:00 87 13 131/77 (95) 100 07/23/19 10:00 89 13 137/87 (104) 100 07/23/19 09:00 92 18 128/76 (93) 100 07/23/19 08:00 90 07/23/19 08:00 97.6 83 12 134/66 (88) 100 07/23/19 08:00 Room Air Intake and Output 07/23/19 07/24/19 19:00 07:00 Intake Total 1075 ml 600 ml Output Total 650 ml Balance 425 ml 600 ml Intake Oral 200 ml 600 ml IV Total 875 ml Output Urine Total 650 ml # Voids 4 # Bowel Movements 1 Height (Feet): 5 Height (Inches): 0.60 Weight (Pounds): 140 General Appearance: no apparent distress Neck: normal alignment Cardiovascular: normal rate Respiratory/Chest: lungs clear Abdomen: normal bowel sounds Objective Current Medications Medications (Trade) Dose Ordered Sig/Carlos Route PRN Reason Start Time Stop Time Status Last Admin Dose Admin Dextrose (Dextrose 50%) 25 ml Q30M PRN IV Hypoglycemia 07/23/19 12:45 10/21/19 07:44 Dextrose (Dextrose 50%) 50 ml Q30M PRN IV Hypoglycemia 07/23/19 12:45 10/21/19 07:44 Insulin Aspart (NovoLOG) BEFORE MEALS AND HS SUBQ 07/23/19 16:30 10/21/19 08:29 07/23/19 20:25 Insulin Aspart (NovoLOG) 8 units NOVOTIAC SUBQ 07/23/19 16:50 10/21/19 08:29 07/24/19 06:39 Insulin Detemir (Levemir) 10 units Q12HR SUBQ 07/23/19 21:00 10/21/19 08:59 07/23/19 20:23 Pantoprazole (Protonix) 40 mg DAILY IVP 07/24/19 09:00 08/22/19 08:59 Sodium Chloride 1,000 ml @ 125 mls/hr Q8H IV 07/23/19 12:45 08/22/19 00:59 07/24/19 04:36 Gunnar Parks MD July 24, 2019 07:20
--- NOTE | 2019-07-24 08:03 | NUR ---
HAND-OFF: Report given to Floridalma HERR.
--- NOTE | 2019-07-24 08:09 | NUR ---
NURSE NOTES: Received report from Ricardo HERR. Patient is awake and oriented, in no apparent distress. Patient refusing SCD's. Right EJ running IVF per order. Patient updated on plan of care for the day. Side rails upx3, bed low and locked, call light within reach.
[2019-07-24] MEDS: Pantoprazole Inj IVP SCH (08:55)
[2019-07-24] MEDS: Levemir Flexpen SUBQ SCH ×2 (08:56→20:37)
[2019-07-24] MEDS: Lisinopril 10mg tab ORAL SCH ×2 (12:22→17:56)
--- NOTE | 2019-07-24 12:30 | NUR ---
NURSE NOTES: Dr. Strong notified of patient's blood pressure >160 systolic. New order received for Lisinopril BID. Order read back, entered, and carried out.
--- NOTE | 2019-07-24 13:00 | NUR ---
CASE MANAGEMENT:INITIAL REVIEW 28YR OLD MALE BIBA FROM [facility] CC: ABDOMINAL PAIN AND VOMITING SI:DKA 98.0 136 20 193/96 96% ON RA BG 550 RBC 7.34 NA+ 134 CL-93 CREAT 1.4 OSMOLALITY 321 T.FELICE 1.6 D.FELICE 0.4 CA+ 7.6 IS: IVF NS BOLUS X2 IV NOVOLOG R X1 IV ZOFRAN X1 IV REGLAN X1 XRAY Chest 1v- Low lung volumes with bronchovascular crowding. \: 3E MED SURG UNIT DCP: HOME WHEN STABLE \: ICU STATUS CASE MANAGEMENT: REVIEW 07/23/19 SI:DKA 97.6 83 12 134/66 100% ON RA CA+7.5 HA1C 12.9 H/H 9.9/33.1 IS: IV NS @125ML/HR LISINOPRIL PO BID IV PROTONIX QD LEVEMIR SQ BID NOVOLOG SQ SS \: ICU STATUS UNIT DCP: HOME WHEN STABLE PLAN: NPO TRANSFER TO MED SURG UNIT CASE MANAGEMENT: REVIEW 07/24/19 SI:DKA 98.2 87 165/109 99% ON RA NO LABS TODAY IS: IV NS @125ML/HR LISINOPRIL PO BID IV PROTONIX QD LEVEMIR SQ BID NOVOLOG SQ SS \: 3E MED SURG UNIT DCP: HOME WHEN STABLE PLAN: CONTROL BP CONT IVF
--- NOTE | 2019-07-24 15:37 | NUR ---
*-* INSURANCE *-* ALL CLINICALS AND REVIEWS HAVE BEEN FAXED TO: [facility]#[phone] fax#[phone]
--- NOTE | 2019-07-24 17:30 | NUR ---
NURSE NOTES: Patient's mealtime insulin not given due to patient refusing dinner. BS 78.
--- NOTE | 2019-07-24 19:17 | NUR ---
HAND-OFF: Report given to Ricardo HERR.
--- NOTE | 2019-07-24 19:58 | NUR ---
NURSE NOTES: Received report from Floridalma HERR, rounds made pt wake,no s/s of distress denies any pain, i.v acces on R EJ with fluids running , patent asymptomatic , bed in low locked position side rails up X2, call light with, will continue with plan of care
--- NOTE | 2019-07-24 20:30 | Progress Note ---
DATE: 07/24/2019 SUBJECTIVE: This is a 28-year-old male came with DKA, renal failure, dehydration, abdominal pain, nausea, and vomiting. The patient also used to take marijuana. He was initially admitted in ICU, now he is on a medical floor. His sugars are still high. Physically, he is feeling better. Abdominal pain is resolving. PHYSICAL EXAMINATION: VITAL SIGNS: Blood pressure 146/94, pulse 100, no fever. HEENT: NAD. CHEST: Bilaterally clear. CARDIOVASCULAR: Regular rhythm. ABDOMEN: Soft. EXTREMITIES: CCE. NEUROLOGICAL: The patient has generalized weakness. LABORATORY DATA: The patient has no labs today. His microbiology reports are negative. ASSESSMENT: 1. DKA. 2. Abdominal pain. 3. Dehydration. PLAN: Continue Levemir, PPI. DC IV fluid. DC plan tomorrow. Derrick Strong M.D. DR: Yuli JOB#: [id number] CC:
[2019-07-25] VITALS: BP 162/98
--- NOTE | 2019-07-25 02:10 | NUR ---
HAND-OFF: Report given to philip Darnell , pt stable.
--- NOTE | 2019-07-25 02:22 | NUR ---
NURSE NOTES: patient in bed, asleep. Able to make needs known. Respiration is even and unlabored. No complaint of pain or discomfort at this time. Bed in low and locked position. Iv site noted. Call light is at bedside.Will continue plan of care.
[2019-07-25 04:00] VITALS: BP 155/93
[2019-07-25] MEDS: NovoLOG Insulin Flexpen SUBQ SCH ×6 (06:06→17:13)
--- NOTE | 2019-07-25 06:59 | General Progress Note ---
Assessment/Plan Problem List: (1) Diabetic ketoacidosis associated with type 1 diabetes mellitus (2) Hyperglycemia Assessment/Plan: continue Levemir 10 units bid continue Novolog 8 units ac tid + SSI Subjective Allergies: Coded Allergies: No Known Allergies (Verified , 09/16/08) All Systems: reviewed and negative except above Subjective events noted glucose values are fairly stable Item Value Date Time Bedside Blood Glucose 164 mg/dl H 07/25/19 0639 Bedside Blood Glucose 231 mg/dl H 07/24/19 2100 Bedside Blood Glucose 78 mg/dl 07/24/19 1739 Bedside Blood Glucose 155 mg/dl H 07/24/19 1223 Bedside Blood Glucose 132 mg/dl H 07/24/19 0856 Bedside Blood Glucose 132 mg/dl H 07/24/19 0639 Objective Last 24 Hour Vital Signs Date Time Temp Pulse Resp B/P (MAP) Pulse Ox O2 Delivery O2 Flow Rate FiO2 07/25/19 04:00 97.7 73 18 155/93 (113) 100 07/25/19 00:00 98.6 91 18 162/98 (119) 100 07/24/19 21:00 Room Air 07/24/19 20:00 98.4 87 18 156/98 (117) 100 07/24/19 17:56 159/103 07/24/19 16:00 98.9 91 16 159/103 (121) 97 07/24/19 12:22 162/103 07/24/19 12:00 97.1 91 16 162/103 (122) 97 07/24/19 10:23 100 146/94 (111) 07/24/19 09:00 Room Air 07/24/19 08:00 98.2 87 16 165/109 (127) 99 Intake and Output 07/24/19 07/25/19 19:00 07:00 Intake Total 2335 ml 2000 ml Output Total 1100 ml Balance 1235 ml 2000 ml Intake Oral 960 ml 1000 ml IV Total 1375 ml 1000 ml Output Urine Total 1100 ml # Voids 3 2 Height (Feet): 5 Height (Inches): 0.60 Weight (Pounds): 139 General Appearance: no apparent distress Neck: normal alignment Cardiovascular: normal rate Respiratory/Chest: lungs clear Abdomen: normal bowel sounds Objective Current Medications Medications (Trade) Dose Ordered Sig/Carlos Route PRN Reason Start Time Stop Time Status Last Admin Dose Admin Dextrose (Dextrose 50%) 25 ml Q30M PRN IV Hypoglycemia 07/23/19 12:45 10/21/19 07:44 Dextrose (Dextrose 50%) 50 ml Q30M PRN IV Hypoglycemia 07/23/19 12:45 10/21/19 07:44 Insulin Aspart (NovoLOG) BEFORE MEALS AND HS SUBQ 07/23/19 16:30 10/21/19 08:29 07/25/19 06:06 Insulin Aspart (NovoLOG) 8 units NOVOTIAC SUBQ 07/23/19 16:50 10/21/19 08:29 07/25/19 06:39 Insulin Detemir (Levemir) 10 units Q12HR SUBQ 07/23/19 21:00 10/21/19 08:59 07/24/19 20:37 Lisinopril (ZestriL) 10 mg BID ORAL 07/24/19 12:15 08/23/19 12:14 07/24/19 17:56 Pantoprazole (Protonix) 40 mg DAILY IVP 07/24/19 09:00 08/22/19 08:59 07/24/19 08:55 Sodium Chloride 1,000 ml @ 125 mls/hr Q8H IV 07/23/19 12:45 08/22/19 00:59 07/25/19 06:00 Gunnar Parks MD July 25, 2019 06:59
--- NOTE | 2019-07-25 07:24 | NUR ---
HAND-OFF: Report given to Mann Dunne.
--- NOTE | 2019-07-25 07:45 | NUR ---
NURSE NOTES: Received report from River HERR, rounds made pt awake in bed, no acute distress noted, denies any pain at this time, i.v on R EJ patent and asymptomatic, Pt refuses IVF at this time. bed in low locked position side rails up X2, call light within reach, will continue with plan of care
[2019-07-25 08:00] VITALS: BP 161/115
[2019-07-25] MEDS: Pantoprazole Inj IVP SCH (08:40)
[2019-07-25] MEDS: Lisinopril 10mg tab ORAL SCH (08:41)
[2019-07-25] MEDS: Levemir Flexpen SUBQ SCH (08:43)
--- NOTE | 2019-07-25 11:21 | NUR ---
RD ASSESSMENT & RECOMMENDATIONS SEE CARE ACTIVITY FOR COMPLETE ASSESSMENT DAILY ESTIMATED NEEDS: Needs based on DM/ 66kg 25-30 kcals/kg 1963-2199 total kcals 1-1.5 g protein/kg 66-99 g total protein 25-30ml/kg mL/kg 2117-0895 total fluid mLs NUTRITION DIAGNOSIS: Altered nutrition related lab values R/T diabetes dx, DKA, as evidenced by elev BG (550 upon adm), elev POC glu, elev A1C (12.9), (+) acetone on adm, Uglu 4+ on adm. CURRENT DIET: [facility] PO DIET RECOMMENDATIONS: [facility]/ DOUBLE PROTEIN PORTIONS ADDITIONAL RECOMMENDATIONS: * Diet change to [facility]OW + DOUBLE PROTEINS * Diet edu provided * Obtain a standing weight as able: Stated wt: 145# vs EMR wt 140# * Monitor intake of pm snack to prevent am hypoglycemia .
--- NOTE | 2019-07-25 11:40 | NUR ---
CASE MANAGEMENT: REVIEW 07/25/19 SI:DKA 98.1 85 18 161/115 100% ON RA NO LABS TODAY IS: IV NS @125ML/HR LISINOPRIL PO BID IV PROTONIX QD LEVEMIR SQ BID NOVOLOG SQ SS \: 3E MED SURG UNIT DCP: HOME WHEN STABLE PLAN: CONTROL BP DC PLAN TODAY BY DR OLVERA
[2019-07-25 12:00] VITALS: BP 161/110
--- NOTE | 2019-07-25 15:55 | NUR ---
*-* INSURANCE *-* ALL CLINICALS AND REVIEWS HAVE BEEN FAXED TO: [facility]#[phone] fax#[phone]
[2019-07-25 16:00] VITALS: BP 145/95
--- NOTE | 2019-07-25 17:30 | NUR ---
NURSE NOTES: Pt in stable condition. Provided discharge instruction and Rx. Explained medication regimen. Pt verbalized understanding. All belongings were accounted for. IV removed, no complication. ID band removed. Pt said he is going to take a bus and know how to get home for sure. Dinner provided. Addendum: 07/25/19 at 1801 by Freddy Dunne RN Pt was escorted by nurse to the lobby.
--- NOTE | 2019-07-25 21:00 | Discharge Summary ---
DATE OF ADMISSION: 07/22/2019 DATE OF DISCHARGE: 07/25/2019 HOSPITAL COURSE: This is a 28-year-old male who came to the emergency room for having a diabetic ketoacidosis. The patient was also found dehydrated. His sugar was over 600. The patient was admitted to intensive care unit, placed on insulin drip protocol. The patient was successfully exited from the protocol, did very well. The patient's sugar is still high. Blood pressure also climbed up. Added lisinopril initially 10 mg, now 20 mg. The patient is physically doing better. No nausea. No vomiting. No abdominal pain. Tolerating food. He is going to go home. DISCHARGE DIAGNOSES: 1. DKA resolved. 2. Diabetes. 3. Hypertension. DIET: He is on 2 grams sodium diet, 1800 ADA diet. DISCHARGE MEDICATIONS: The patient is going to continue Lantus 12 units twice a day. Continue Protonix. Increase Lisinopril 20 mg p.o. b.i.d. Recommended followup as outpatient. Derrick Strong M.D. DR: Esther JOB#: [id number] CC:
--- NOTE | 2019-07-26 11:19 | NUR ---
*-* INSURANCE *-* DISCHARGE SUMMARY HAS BEEN FAXED TO: [facility]#[phone] fax#[phone]
== END 2019-07-25 18:02 | disposition home or self-care (01) | DRG 420 ==
LOC: EDBD 16:02 → EMR 16:15 → ICU 18:13 → EDBEDREQ 18:46 → 3E 07-23 12:43
DX: E10.10 Type 1 diabetes mellitus with ketoacidosis without coma (principal); I10 Essential (primary) hypertension; E86.0 Dehydration
CPT/HCPCS: 36415; 71045; 80053; 81003; 82009; 82248; 82803; 82962; 83036; 83690; 83735; 83930; 84484; 85025; 87081; 93005; 96361; 96374; 96375; 99291; J1815; J2405; J2765; J7030; S5561